=== PATIENT | male | born 1985 | race Caucasian/White ===

== ENCOUNTER 2018-10-21 21:17 | Inpatient (IN) | payer MEDICAID | END 2018-10-23 13:11 | disposition home or self-care (01) | LOC: ER 21:17 → ED HOLD 10-22 00:26 → SUR 3N 10-22 02:45 ==

== ENCOUNTER 2019-09-02 09:55 | Emergency (ER) | payer MEDICAID ==
[~2019-09-02] VITALS: Ht 170.2 cm; Wt 77.8 kg
[~2019-09-02 09:55] MED LIST: BENZ1TAB7 PO; CHOL200012 PO; CLOZ100T35 PO; DOXE10CA3; HALO10TA13 PO; HALO5TAB PO; IPRA4AER IH; PROP10TA10 PO; UMEC1DIS INH
[2019-09-02 10:01] VITALS: BP 111/77
[2019-09-02] MEDS ORDERED: dexamethasone 4mg tablet PO ONE (10:35)
[2019-09-02] MEDS ORDERED: metroNIDAZOLE 500mg tablet PO ONE (10:35)
[2019-09-02] MEDS ORDERED: ONDA4TAB6 PO (10:37)
[2019-09-02] MEDS ORDERED: PRED20TA PO (10:37)
[2019-09-02] MEDS ORDERED: CLIN300C54 PO (10:37)
[2019-09-02] MEDS ORDERED: HYDR-3965 PO (10:37)
[2019-09-02] MEDS ORDERED: METR500T PO (10:37)
== END 2019-09-02 10:58 | disposition home or self-care (01) ==
LOC: ER 09:55
DX: K04.7 Periapical abscess without sinus (principal); K02.9 Dental caries, unspecified; J45.909 Unspecified asthma, uncomplicated; F20.9 Schizophrenia, unspecified; F12.90 Cannabis use, unspecified, uncomplicated; Z56.0 Unemployment, unspecified; Z88.0 Allergy status to penicillin; Z79.899 Other long term (current) drug therapy
CPT/HCPCS: 99283; J3490

== ENCOUNTER 2021-08-15 17:59 | Emergency (ER) | payer MEDICAID ==
[~2021-08-15] VITALS: Ht 170.2 cm; Wt 93.6 kg
[~2021-08-15 17:59] MED LIST changes: +CLIN300C54 PO; +ONDA4TAB6 PO
[2021-08-15] MEDS ORDERED: albuterol 2.5 MG/3 ML nebule NEB ONE (22:10)
[2021-08-15] MEDS ORDERED: ALBU8HFA PO (22:47)
[2021-08-15] MEDS ORDERED: dexamethasone 4mg tablet PO ONE ×2 (22:50)
[2021-08-15] MEDS ORDERED: DEXAMETHASONE 6 MG TABLET PO ONE (22:50)
[2021-08-16 00:16] LABS: MEAN CORPUSCULAR HGB CONC 35.6 g/dL (33.0-36.5); MEAN PLATELET VOLUME 7.9 FL (7.4-10.4)
[2021-08-16 00:18] LABS: BASOPHILS % (AUTO) 0.6 % (0-1); EOSINOPHILS # (AUTO) 0.1 X10'3 (0-0.9); HEMATOCRIT 41.2 % (42.0-52.0); HEMOGLOBIN 14.7 g/dl (14.0-17.9); LYMPHOCYTES # (AUTO) 0.9 X10'3 (1.1-4.8); LYMPHOCYTES % (AUTO) 13.9 % (21-51); MEAN CORPUSCULAR VOLUME 92.8 FL (78-98); MONOCYTES # (AUTO) 0.5 X10'3 (0-0.9); MONOCYTES % (AUTO) 7.2 % (2-12); NEUTROPHILS # (AUTO) 5.1 X10'3 (1.8-7.7); NEUTROPHILS % (AUTO) 76.3 % (42-75); PLATELET COUNT 170 X10'3 (140-440); RED BLOOD COUNT 4.44 X10'6 (4.70-6.10); RED CELL DISTRIBUTION WIDTH 12.3 % (11.5-14.5); WHITE BLOOD COUNT 6.7 X10'3 (4.5-11.0)
[2021-08-16 00:22] LABS: ALBUMIN 4.1 G/DL (3.4-5.0); ANION GAP 10 (8-16); BLOOD UREA NITROGEN 7 MG/DL (7-18); BUN/CREATININE RATIO 9.1 (5.4-32.0); CALCIUM 7.9 MG/DL (8.5-10.1); CHLORIDE 91 MMOL/L (99-107); CREATININE 0.77 MG/DL (0.60-1.10); GLUCOSE 91 MG/DL (70-104); SODIUM 127 MMOL/L (135-145); TOTAL CARBON DIOXIDE 25.9 MMOL/L (24-32); eGFR > 90 ML/MIN
[2021-08-16 00:23] LABS: POTASSIUM 3.8 MMOL/L (3.5-5.1)
[2021-08-16 00:31] VITALS: BP 136/103
== END 2021-08-16 01:49 | disposition home or self-care (01) ==
LOC: ER 17:59
DX: J45.901 Unspecified asthma with (acute) exacerbation (principal); E87.1 Hypo-osmolality and hyponatremia; F45.9 Somatoform disorder, unspecified; R06.02 Shortness of breath; R63.1 Polydipsia; F20.9 Schizophrenia, unspecified; F12.90 Cannabis use, unspecified, uncomplicated; Z56.0 Unemployment, unspecified; Z88.0 Allergy status to penicillin; Z79.2 Long term (current) use of antibiotics; Z79.899 Other long term (current) drug therapy
CPT/HCPCS: 36415; 71045; 80048; 85025; 93005; 94640; 94760; 99285; J8540

== ENCOUNTER 2023-04-11 22:15 | Emergency (ER) | payer MEDICAID ==
[~2023-04-11] VITALS: Ht 170.2 cm; Wt 84.1 kg
[~2023-04-11 22:15] MED LIST changes: -BENZ1TAB7 PO; +BENZ1TAB93 PO
[2023-04-11] MEDS ORDERED: ipratropium/albuterol 3ml nebule NEB ONE (22:40)
[2023-04-11] MEDS ORDERED: predniSONE 20 mg tablet PO ONE (22:45)
[2023-04-11] MEDS ORDERED: azithromycin 250mg tablet PO ONE (22:45)
[2023-04-11] MEDS ORDERED: CefTRIAXone 2gm/D5W 50ml BAG 50 ML IV ONE (23:15)
[2023-04-11 23:45] LABS: BASOPHILS % (AUTO) 0.2 % (0-1); EOSINOPHILS % (AUTO) 0 % (0-6); HEMATOCRIT 34.9 % (42.0-52.0); HEMOGLOBIN 11.7 g/dl (14.0-17.9); LYMPHOCYTES # (AUTO) 0.5 X10'3 (1.1-4.8); LYMPHOCYTES % (AUTO) 4.3 % (21-51); MEAN CORPUSCULAR HEMOGLOBIN 31.1 PG (27.0-31.0); MEAN CORPUSCULAR HGB CONC 33.5 g/dL (33.0-36.5); MEAN CORPUSCULAR VOLUME 92.8 FL (78-98); MONOCYTES # (AUTO) 1.1 X10'3 (0-0.9); MONOCYTES % (AUTO) 9.1 % (2-12); NEUTROPHILS # (AUTO) 10.6 X10'3 (1.8-7.7); NEUTROPHILS % (AUTO) 86.4 % (42-75); PLATELET COUNT 256 X10'3 (140-440); RED BLOOD COUNT 3.75 X10'6 (4.70-6.10); RED CELL DISTRIBUTION WIDTH 13.2 % (11.5-14.5); WHITE BLOOD COUNT 12.3 X10'3 (4.5-11.0)
[2023-04-11] MEDS ORDERED: ketorolac trometh. 30mg/ml inj. IV ONE (23:50)
[2023-04-12 00:01] LABS: ALANINE AMINOTRANSFERASE 151 U/L (12-78); ALBUMIN/GLOBULIN RATIO 0.8 (1.1-1.5); ALKALINE PHOSPHATASE 108 IU/L (46-116); ANION GAP 11 (8-16); ASPARTATE AMINO TRANSFERASE 116 U/L (10-37); BILIRUBIN,TOTAL 0.5 MG/DL (0.1-1.0); BLOOD UREA NITROGEN 8 MG/DL (7-18); BUN/CREATININE RATIO 8.1 (10.0-20.0); CALCIUM 8.5 MG/DL (8.5-10.1); CHLORIDE 98 MMOL/L (99-107); CREATININE 0.99 MG/DL (0.60-1.10); GLUCOSE 118 MG/DL (70-104); POTASSIUM 3.4 MMOL/L (3.5-5.1); SODIUM 135 MMOL/L (135-145); TOTAL CARBON DIOXIDE 25.8 MMOL/L (24-32); TOTAL PROTEIN 6.8 G/DL (6.4-8.2); eGFR 84 ML/MIN
[2023-04-12] MEDS ORDERED: PRED20TA PO (00:55)
[2023-04-12] MEDS ORDERED: DOXY100C43 PO (00:55)
[2023-04-12 01:09] VITALS: BP 110/67
== END 2023-04-12 01:10 | disposition home or self-care (01) ==
LOC: ER 22:16
DX: J20.9 Acute bronchitis, unspecified (principal); J45.909 Unspecified asthma, uncomplicated; F12.90 Cannabis use, unspecified, uncomplicated; Z88.0 Allergy status to penicillin; Z56.0 Unemployment, unspecified
CPT/HCPCS: 36415; 71045; 80053; 84145; 85025; 94640; 96374; 96375; 99284; J0696; J1885; J7512; 94760; A4615

== ENCOUNTER → 2023-05-01 | Emergency (ER) | payer MEDICAID ==
[~2023-05-01] VITALS: Ht 170.2 cm; Wt 87.2 kg
[~2023-05-01] MED LIST changes: +DOXY100C43 PO; +POTASSIUM BICARB 20meq eff tab 20 MEQ TABLET.EFF PO ONE; +PRED20TA PO; +ringers solution, lactated 1000ml IV soln IV ONE
[2023-05-01 15:55] VITALS: TEMP 97.7
[2023-05-01 16:35] LABS: BASOPHILS % (AUTO) 0.2 % (0-1); EOSINOPHILS % (AUTO) 0.4 % (0-6); HEMATOCRIT 39.9 % (42.0-52.0); HEMOGLOBIN 13.8 g/dl (14.0-17.9); LYMPHOCYTES # (AUTO) 1.7 X10'3 (1.1-4.8); LYMPHOCYTES % (AUTO) 24.1 % (21-51); MEAN CORPUSCULAR HEMOGLOBIN 31.2 PG (27.0-31.0); MEAN CORPUSCULAR HGB CONC 34.6 g/dL (33.0-36.5); MEAN CORPUSCULAR VOLUME 90.2 FL (78-98); MEAN PLATELET VOLUME 8.6 FL (7.4-10.4); MONOCYTES # (AUTO) 0.6 X10'3 (0-0.9); NEUTROPHILS # (AUTO) 4.6 X10'3 (1.8-7.7); NEUTROPHILS % (AUTO) 67.3 % (42-75); PLATELET COUNT 164 X10'3 (140-440); RED BLOOD COUNT 4.43 X10'6 (4.70-6.10); RED CELL DISTRIBUTION WIDTH 14.6 % (11.5-14.5); WHITE BLOOD COUNT 6.9 X10'3 (4.5-11.0)
[2023-05-01 16:49] LABS: ALANINE AMINOTRANSFERASE 34 U/L (12-78); ALBUMIN 3.6 G/DL (3.4-5.0); ALBUMIN/GLOBULIN RATIO 1.3 (1.1-1.5); ALKALINE PHOSPHATASE 83 IU/L (46-116); ANION GAP 11 (8-16); ASPARTATE AMINO TRANSFERASE 19 U/L (10-37); BILIRUBIN,TOTAL 0.6 MG/DL (0.1-1.0); BLOOD UREA NITROGEN 9 MG/DL (7-18); BUN/CREATININE RATIO 12.2 (10.0-20.0); CALCIUM 8.8 MG/DL (8.5-10.1); CHLORIDE 94 MMOL/L (99-107); CREATININE 0.74 MG/DL (0.60-1.10); GLUCOSE 118 MG/DL (70-104); POTASSIUM 3.2 MMOL/L (3.5-5.1); SODIUM 129 MMOL/L (135-145); TOTAL CARBON DIOXIDE 23.7 MMOL/L (24-32); TOTAL PROTEIN 6.3 G/DL (6.4-8.2); eGFR > 90 ML/MIN
[2023-05-01 18:45] VITALS: BP 101/68; PULSE 76; RESP 16; O2SAT 96
== END | disposition home or self-care (01) ==
LOC: ER 21:23
DX: R04.2 Hemoptysis (principal); R05.9 Cough, unspecified; E87.1 Hypo-osmolality and hyponatremia; E87.6 Hypokalemia; F17.200 Nicotine dependence, unspecified, uncomplicated; J44.9 Chronic obstructive pulmonary disease, unspecified; F12.90 Cannabis use, unspecified, uncomplicated; Z56.0 Unemployment, unspecified; Z88.0 Allergy status to penicillin; Z79.2 Long term (current) use of antibiotics; Z79.899 Other long term (current) drug therapy
CPT/HCPCS: 36415; 71045; 80053; 83880; 84484; 85025; 99284; J7120

== ENCOUNTER 2023-07-15 13:51 | Inpatient (IN) | payer MEDICAID ==
[~2023-07-15] VITALS: Ht 170.2 cm; Wt 88.9 kg
[~2023-07-15 13:51] MED LIST changes: -DOXY100C43 PO; -POTASSIUM BICARB 20meq eff tab 20 MEQ TABLET.EFF PO ONE; -PRED20TA PO; -ringers solution, lactated 1000ml IV soln IV ONE
[2023-07-15 14:15] LABS: BASOPHILS % (AUTO) 0.1 % (0-1); EOSINOPHILS % (AUTO) 0.2 % (0-6); LYMPHOCYTES # (AUTO) 0.9 X10'3 (1.1-4.8); LYMPHOCYTES % (AUTO) 13.8 % (21-51); MEAN CORPUSCULAR HEMOGLOBIN 31.3 PG (27.0-31.0); MEAN CORPUSCULAR HGB CONC 33.4 g/dL (33.0-36.5); MEAN CORPUSCULAR VOLUME 93.6 FL (78-98); MEAN PLATELET VOLUME 8.7 FL (7.4-10.4); MONOCYTES # (AUTO) 0.5 X10'3 (0-0.9); MONOCYTES % (AUTO) 7.2 % (2-12); NEUTROPHILS # (AUTO) 5.4 X10'3 (1.8-7.7); NEUTROPHILS % (AUTO) 78.7 % (42-75); PLATELET COUNT 162 X10'3 (140-440); RED CELL DISTRIBUTION WIDTH 14.1 % (11.5-14.5); WHITE BLOOD COUNT 6.9 X10'3 (4.5-11.0)
[2023-07-15 14:33] LABS: ALANINE AMINOTRANSFERASE 37 U/L (12-78); ALBUMIN 4.2 G/DL (3.4-5.0); ALBUMIN/GLOBULIN RATIO 1.4 (1.1-1.5); ALKALINE PHOSPHATASE 81 IU/L (46-116); ANION GAP 7 (8-16); ASPARTATE AMINO TRANSFERASE 23 U/L (10-37); BILIRUBIN,TOTAL 0.7 MG/DL (0.1-1.0); BLOOD UREA NITROGEN 9 MG/DL (7-18); BUN/CREATININE RATIO 9.6 (10.0-20.0); CHLORIDE 100 MMOL/L (99-107); CREATININE 0.94 MG/DL (0.60-1.10); GLUCOSE 94 MG/DL (70-104); POTASSIUM 3.9 MMOL/L (3.5-5.1); SODIUM 135 MMOL/L (135-145); TOTAL PROTEIN 7.2 G/DL (6.4-8.2); eCRCL 99 ML/MIN; eGFR 89 ML/MIN
--- NOTE | 2023-07-15 14:34 | NUR ---
Patient arrived to overflow-bed 23 from [facility] at this time. Calm and cooperative. Received report from EMS. Home meds handed over to this nurse. Patient was evicted from board and care and unable to form plan of care. Placed on 5150 for gravely disabled. LPS due to severe s/sx of Schizophrenia. Alert to baseline.
[2023-07-15 14:43] LABS: ETHANOL < 10 MG/DL (<10); THYROID STIMULATING HORMONE 1.49 ulU/ml (0.34-4.50)
[2023-07-15 15:06] LABS: BILIRUBIN,URINE NEGATIVE (Neg); CLARITY,URINE CLEAR (Clear); COLOR,URINE STRAW (Yellow); GLUCOSE, URINE NEGATIVE (Neg); KETONES,URINE NEGATIVE (Neg); LEUKOCYTE ESTERASE ,URINE NEGATIVE (Neg); NITRITES, URINE NEGATIVE (Neg); OCCULT BLOOD,URINE NEGATIVE (Neg); PH,URINE 7.5 (4.8-8.0); PROTEIN,URINE NEGATIVE (Neg); UROBILINOGEN,URINE 0.2 E.U/dL (0.2-1.0)
[2023-07-15 15:11] LABS: UA COLLECTION TYPE NON-SPECIFIED
[2023-07-15 15:25] LABS: URINE AMPHETAMINE SCREEN NEGATIVE (Neg); URINE BARBITUATE SCREEN NEGATIVE (Neg); URINE BENZODIAZEPINES SCREEN NEGATIVE (Neg); URINE CANNABINOID SCREEN NEGATIVE (Neg); URINE COCAINE SCREEN NEGATIVE (Neg); URINE METHADONE SCREEN NEGATIVE (Neg); URINE OPIATE SCREEN NEGATIVE (Neg); URINE PHENCYCLIDINE SCREEN NEGATIVE (Neg)
[2023-07-15] MEDS ORDERED: TIOT4MIS3 INH (16:12)
[2023-07-15] MEDS ORDERED: CHLO473M2 PO (16:12)
[2023-07-15] MEDS ORDERED: ONDA-103 PO (16:12)
[2023-07-15] MEDS ORDERED: POLY510P31 PO (16:12)
[2023-07-15] MEDS ORDERED: DOCU-22 PO (16:12)
[2023-07-15] MEDS ORDERED: PROP60TA19 PO (16:12)
[2023-07-15] MEDS ORDERED: Ibuprofen PO (16:12)
[2023-07-15] MEDS ORDERED: LORA-269 PO (16:12)
[2023-07-15] MEDS ORDERED: ALBU6.7H14 INH (16:12)
[2023-07-15] MEDS ORDERED: CLOZ25TA12 PO (16:12)
[2023-07-15] MEDS ORDERED: CLOZ50TA9 PO (16:12)
[2023-07-15] MEDS ORDERED: CLOZ100T13 PO (16:12)
[2023-07-15] MEDS ORDERED: BENZ2TAB65 PO (16:12)
[2023-07-15] MEDS ORDERED: PANT40TA54 PO (16:12)
[2023-07-15] MEDS ORDERED: CALC500T11 PO (16:12)
[2023-07-15] MEDS ORDERED: ACET-1025 PO (16:12)
--- NOTE | 2023-07-15 16:45 | NUR ---
Patient resting in bed. Makes frequent requests for coffee and soda. Made him aware of what he can have and how much. Patient was calm and compliant. Just completed med req. Dropped home medications off in pharmacy. Pending evaluation.
[2023-07-15] MEDS ORDERED: ibuprofen 200mg tablet PO PRN (18:05)
[2023-07-15] MEDS ORDERED: acetaminophen 325mg tablet PO PRN (18:05)
--- NOTE | 2023-07-15 18:30 | NUR ---
Received pt from day shift RN. Pt is up watching TV. Pt is calm and cooperative with care. Pt requsting breathing treatment, RT was paged.
--- NOTE | 2023-07-15 19:27 | NUR ---
RT was repaged.
[2023-07-15] MEDS: propranolol 40mg tablet PO SCH (19:57)
[2023-07-15] MEDS: docusate sod 100mg capsule PO SCH (19:57)
[2023-07-15] MEDS: benztropine 1mg tablet PO SCH (19:58)
[2023-07-15] MEDS: clozapine 100mg tablet PO SCH (19:58)
[2023-07-15] MEDS: haloperidol 5mg tablet PO SCH (19:58)
[2023-07-15] MEDS: clozapine 25mg tablet PO SCH (19:58)
[2023-07-15 20:12] VITALS: PULSE 86; RESP 16; O2SAT 94
--- NOTE | 2023-07-15 20:15 | NUR ---
RT here and breathing treatment given with good results. Pt is guarded and deniesn SI/HI/AVH. Pt is medication compliant tonight. Pt in NAD. Monitor for safety.
[2023-07-15 20:19] VITALS: PULSE 87; RESP 16
[2023-07-15] MEDS ORDERED: albuterol 2.5 MG/3 ML nebule NEB SCH (21:00)
--- NOTE | 2023-07-15 22:29 | NUR ---
Pt sleeping in supine position. NAD observed. RR even and unlabored. Monitor for safety.
--- NOTE | 2023-07-16 00:15 | NUR ---
Pt sleeping on left side. NAD observed. RR even and unlabored. Monitor for safety.
--- NOTE | 2023-07-16 02:00 | NUR ---
Pt asleep, RR even and unlabored. Pt in no acute distress, monitor for safety.
--- NOTE | 2023-07-16 03:56 | NUR ---
Pt asleep with even respirations, in NAD, monitor for safety.
--- NOTE | 2023-07-16 05:46 | NUR ---
Pt awake and having VS taken. Water refilled. Pt is in no distress. Monitor for safety.
--- NOTE | 2023-07-16 06:56 | NUR ---
Pt standing by bed with arms crossed. Pt asked for coffee, tech gave. Pt asking how people get hired here and if one has to go to school to apply. Pt calm and appears happy with coffee. No s/s of distress.
[2023-07-16] MEDS: cholecalciferol (vitamin D3) 1,000 unit (25mcg) tablet PO SCH (07:24)
[2023-07-16] MEDS: polyethylene glycol 3350 17gm powd pack PO SCH (07:24)
[2023-07-16] MEDS: clozapine 100mg tablet PO SCH ×4 (07:24→20:08)
[2023-07-16] MEDS: benztropine 1mg tablet PO SCH ×2 (07:24→20:07)
[2023-07-16] MEDS: LORazepam 1 MG tablet PO SCH (07:24)
[2023-07-16] MEDS: docusate sod 100mg capsule PO SCH ×2 (07:25→20:07)
[2023-07-16] MEDS: pantoprazole 40mg Tablet.DR PO SCH (07:25)
[2023-07-16] MEDS: clozapine 25mg tablet PO SCH ×4 (07:25→20:08)
[2023-07-16] MEDS: haloperidol 5mg tablet PO SCH ×3 (07:25→20:07)
[2023-07-16] MEDS: propranolol 40mg tablet PO SCH ×3 (07:53→20:06)
--- NOTE | 2023-07-16 09:04 | NUR ---
Pt pacing around bed with arms crossed staring at staff. No s/s of distress.
[2023-07-16 09:32] VITALS: PULSE 77; RESP 16; O2SAT 96
[2023-07-16] MEDS: albuterol 2.5 MG/3 ML nebule NEB SCH ×3 (09:32→20:25)
[2023-07-16 09:40] VITALS: PULSE 74; RESP 16
[2023-07-16] MEDS: Tiotropium Br/Olodaterol HCl (Stiolto Respimat Inhal Spray) IH SCH (09:49)
--- NOTE | 2023-07-16 10:21 | NUR ---
Niurka Smith called for nurse to nurse. Given to IRAM Kelly.
--- NOTE | 2023-07-16 11:01 | NUR ---
Pt lying in bed supine and awake. Pt calm, no s/s of distress. Respirations even and unlabored.
--- NOTE | 2023-07-16 12:20 | NUR ---
Pt eating lunch in bed. Took afternoon medications cooperatively. Pt calm and cooperative. No s/s of distress. Coffee provided, pt pleased.
--- NOTE | 2023-07-16 13:06 | NUR ---
Pt observed swinging his fist into the air stating that there is an entity in here. putting in order for Ativan.
[2023-07-16] MEDS ORDERED: LORazepam 1 MG tablet PO ONE (13:20)
--- NOTE | 2023-07-16 14:30 | NUR ---
Pt is sitting in his bed. Pt is calm and looking through magazines. No s/s of distress.
[2023-07-16 14:45] VITALS: PULSE 79; RESP 18; O2SAT 96
[2023-07-16 14:51] VITALS: PULSE 76; RESP 18
--- NOTE | 2023-07-16 16:30 | NUR ---
Pt awake standing near nursing station asking for coffee. No s/s of distress. Pt calm with staff.
--- NOTE | 2023-07-16 16:51 | NUR ---
Note kaileysuhas in EDM - 07/16/23 at 1717 by JONATHON Pt escorted out of the ER by security. Pt has all belongings & valuables. Pt provided with information about [facility] to find prison. Pt refused to sign paperwork and became very agitated when it was time to leave. Pt made several statements pertaining to how terrible staff is. Pt began yelling and making delusional statements about staff making a super satan out of his blood.
--- NOTE | 2023-07-16 16:52 | NUR ---
Above note for a different patient.
--- NOTE | 2023-07-16 18:30 | NUR ---
Pt lying in bed supine and awake. No s/s of distress.
[2023-07-16 20:26] VITALS: PULSE 71; RESP 18; O2SAT 95
[2023-07-16 20:33] VITALS: PULSE 72; RESP 18
--- NOTE | 2023-07-16 20:49 | NUR ---
Pt asleep in bed lying on right side. Respirations even and unlabored. No s/s of distress.
--- NOTE | 2023-07-16 22:28 | NUR ---
Patient asleep in bed lying on right side. Respirations even and unlabored. No s/s of distress.
--- NOTE | 2023-07-17 06:32 | NUR ---
Patient awake and walking around the unit asking for coffee. Patient appears slightly agitated. Continue to monitor.
--- NOTE | 2023-07-17 08:09 | NUR ---
Patient eating breakfast. No distress observed. Continue to monitor.
[2023-07-17] MEDS: polyethylene glycol 3350 17gm powd pack PO SCH (08:11)
[2023-07-17] MEDS: pantoprazole 40mg Tablet.DR PO SCH (08:13)
[2023-07-17] MEDS: LORazepam 1 MG tablet PO SCH (08:13)
[2023-07-17] MEDS: clozapine 25mg tablet PO SCH ×4 (08:13→21:09)
[2023-07-17] MEDS: benztropine 1mg tablet PO SCH ×2 (08:14→21:06)
[2023-07-17] MEDS: haloperidol 5mg tablet PO SCH ×3 (08:14→21:06)
[2023-07-17] MEDS: docusate sod 100mg capsule PO SCH ×2 (08:14→21:06)
[2023-07-17] MEDS: propranolol 40mg tablet PO SCH ×3 (08:14→21:06)
[2023-07-17] MEDS: clozapine 100mg tablet PO SCH ×4 (08:14→21:09)
[2023-07-17] MEDS: cholecalciferol (vitamin D3) 1,000 unit (25mcg) tablet PO SCH (08:14)
[2023-07-17 08:30] VITALS: PULSE 89; RESP 17; O2SAT 95
[2023-07-17] MEDS: Tiotropium Br/Olodaterol HCl (Stiolto Respimat Inhal Spray) IH SCH (08:30)
[2023-07-17] MEDS: albuterol 2.5 MG/3 ML nebule NEB SCH ×3 (08:30→21:00)
[2023-07-17 08:38] VITALS: PULSE 85; RESP 17
--- NOTE | 2023-07-17 09:55 | NUR ---
Patient often coming to nurse's station and asking for coffee. Continue to monitor.
--- NOTE | 2023-07-17 12:05 | NUR ---
Patient eating lunch. No distress observed. Continue to monitor.
--- NOTE | 2023-07-17 12:51 | NUR ---
Patient watching T.V. No distress observed. Continue to monitor.
--- NOTE | 2023-07-17 14:09 | NUR ---
Patient watching T.V. No distress observed. Continue to monitor.
--- NOTE | 2023-07-17 16:11 | NUR ---
Patient assisting another patient with the T.V. No distress observed. Continue to monitor.
--- NOTE | 2023-07-17 18:07 | NUR ---
Patient eating dinner. No distress observed. Continue to monitor.
--- NOTE | 2023-07-17 20:03 | NUR ---
Patient sleeping supine. Nonlabored respirations. Continue to monitor.
--- NOTE | 2023-07-17 22:33 | NUR ---
Patient continues to sleep. No distress observed. Continue to monitor.
--- NOTE | 2023-07-18 01:14 | NUR ---
Patient continues to sleep. No distress observed. Continue to monitor.
--- NOTE | 2023-07-18 03:16 | NUR ---
Patient got up a little while ago ane then was watching R.V. No distress observed. Contine to monitor.
--- NOTE | 2023-07-18 06:30 | NUR ---
Received pt. awake requesting coffee.
[2023-07-18] MEDS: clozapine 100mg tablet PO SCH ×4 (07:30→21:53)
[2023-07-18] MEDS: LORazepam 1 MG tablet PO SCH ×2 (07:30→17:34)
[2023-07-18] MEDS: pantoprazole 40mg Tablet.DR PO SCH (07:31)
[2023-07-18] MEDS: docusate sod 100mg capsule PO SCH ×2 (07:31→21:51)
[2023-07-18] MEDS: benztropine 1mg tablet PO SCH ×2 (07:31→21:54)
[2023-07-18] MEDS: polyethylene glycol 3350 17gm powd pack PO SCH (07:31)
[2023-07-18] MEDS: cholecalciferol (vitamin D3) 1,000 unit (25mcg) tablet PO SCH (07:31)
[2023-07-18] MEDS: clozapine 25mg tablet PO SCH ×4 (07:31→21:53)
[2023-07-18] MEDS: haloperidol 5mg tablet PO SCH ×3 (07:31→21:52)
[2023-07-18] MEDS: propranolol 40mg tablet PO SCH ×3 (07:31→21:52)
--- NOTE | 2023-07-18 08:19 | NUR ---
Pt. refused breakfast and instead gave it to another peer, he is observed to be up and down out of bed and somewhat restless. Will continue to monitor.
--- NOTE | 2023-07-18 09:10 | NUR ---
Pt's mother called and is pt. is talking to her at this time.
--- NOTE | 2023-07-18 09:11 | NUR ---
Disregard last note: charted on wrong patient
[2023-07-18] MEDS: albuterol 2.5 MG/3 ML nebule NEB SCH ×3 (09:14→21:00)
[2023-07-18 09:16] VITALS: PULSE 83; RESP 14; O2SAT 97
[2023-07-18] MEDS: Tiotropium Br/Olodaterol HCl (Stiolto Respimat Inhal Spray) IH SCH (09:19)
--- NOTE | 2023-07-18 09:19 | NUR ---
1:1 was completed with pt. at beside, he is A&O X3, not to the reason he is here. Pt. answers direct questions only with a minimal response. He denies any S/I or A/V/MOSLEY. When questioned regarding delusions, pt. stated in what appeared to be a possible paranoid manner, "Everyone wants to hurt me, I have nightmares." He does not elaborate on this upon further questioning, however pt. denies having any nightmares last night.
[2023-07-18 09:25] VITALS: PULSE 82; RESP 18
--- NOTE | 2023-07-18 10:18 | NUR ---
Pt. is standing at the nurse's station at this time, interacating appropriately with staff.
--- NOTE | 2023-07-18 12:01 | NUR ---
Pt. has been accepted at [facility] and will be transferred upstairs. Addendum: 07/18/23 at 1203 by HILARIO Pt. is aware of this and reports understanding.
--- NOTE | 2023-07-18 12:10 | NUR ---
Pt. was transferred upstairs to [place] in a wheelchair by RN and accompanied by security. His belongings were sent with him along with his lunch tray. Report was given to IRAM Loera.
[2023-07-18] MEDS ORDERED: loperamide 2mg capsule PO PRN (12:30)
[2023-07-18] MEDS ORDERED: acetaminophen 325mg tablet PO PRN ×2 (12:30)
[2023-07-18] MEDS ORDERED: mag hydrox/Alum hydrox/simeth 30ml oral suspension PO PRN (12:30)
[2023-07-18] MEDS ORDERED: nicotine 21mg patch - 24 hr TD SCH (12:30)
--- NOTE | 2023-07-18 12:37 | NUR ---
Admit note: Pt admitted to [facility] today on 5150 for gravely disabled from our ER at 1210. Pt was evicted from his board and care. Pt has severe thought disorder that impacts his ability to make a plan to meet his needs. Pt has history of cerebral palsy, asthma, COPD , schizophrenia.
[2023-07-18 12:53] VITALS: BP 127/87; PULSE 81; RESP 18; TEMP 97.7; O2SAT 98
[2023-07-18 15:55] VITALS: RESP 16
[2023-07-18 19:30] VITALS: BP 116/73; PULSE 79; RESP 18; TEMP 97.5; O2SAT 95
[2023-07-18] MEDS: calcium carbonate 500mg tablet PO SCH (21:53)
[2023-07-18] MEDS: chlorhexidine gluconate 15ml Cup****oral rinse MM SCH (21:54)
[2023-07-19] VITALS (7 sets, daily range): BP systolic 90–116; BP diastolic 52–84; PULSE 76–90; RESP 12–18; TEMP 97.4; O2SAT 96–98
--- NOTE | 2023-07-19 05:23 | NUR ---
Nursing Progress Note: Problem: Pt admitted to [facility] today on 5150 for gravely disabled from our ER at 1210. Pt was evicted from his board and care. Pt has severe thought disorder that impacts his ability to make a plan to meet his needs. Pt has history of cerebral palsy, asthma, COPD , schizophrenia. Interventions: Maintained a safe and structured environment, ensured contract for safety, administered meds as prescribed, provided clear and simple instructions, and maintained Q 15min safety checks. Response: Pt sleeping in bed at shift change. On assessment pt was quiet and did not speak except to answer questions. He denies AVH/SI/HI. Pt was difficult to wake for med pass but was compliant with all medications and slept through the whole shift without any complaints. Plan: Cont. to require a safe and structured environment for further stabilization.
[2023-07-19] MEDS: LORazepam 1 MG tablet PO SCH ×2 (07:47→16:30)
[2023-07-19] MEDS: pantoprazole 40mg Tablet.DR PO SCH (07:48)
[2023-07-19] MEDS: clozapine 100mg tablet PO SCH ×4 (07:48→20:22)
[2023-07-19] MEDS: haloperidol 5mg tablet PO SCH ×3 (07:48→20:22)
[2023-07-19] MEDS: benztropine 1mg tablet PO SCH ×2 (07:48→20:22)
[2023-07-19] MEDS: docusate sod 100mg capsule PO SCH ×2 (07:48→20:22)
[2023-07-19] MEDS: clozapine 25mg tablet PO SCH ×4 (07:48→20:22)
[2023-07-19] MEDS: polyethylene glycol 3350 17gm powd pack PO SCH (07:48)
[2023-07-19] MEDS: cholecalciferol (vitamin D3) 1,000 unit (25mcg) tablet PO SCH (07:48)
[2023-07-19] MEDS: calcium carbonate 500mg tablet PO SCH ×3 (07:48→20:22)
[2023-07-19] MEDS: propranolol 40mg tablet PO SCH ×3 (07:49→20:20)
[2023-07-19] MEDS: chlorhexidine gluconate 15ml Cup****oral rinse MM SCH ×2 (08:05→20:23)
[2023-07-19 08:29] LABS: CHOL/HDL RATIO 3.4 (0.00-4.99); CHOLESTEROL 158 MG/DL (0-200); HDL CHOLESTEROL 47 MG/DL (35-60); LDL CHOLESTEROL 92 MG/DL (50-100); TRIGLYCERIDES 129 MG/DL (20-135)
[2023-07-19] MEDS: albuterol 2.5 MG/3 ML nebule NEB SCH ×3 (08:30→20:16)
[2023-07-19] MEDS: Tiotropium Br/Olodaterol HCl (Stiolto Respimat Inhal Spray) IH SCH (08:30)
[2023-07-19 08:35] LABS: HEMOGLOBIN A1C 5.4 % (4.5-6.2)
--- NOTE | 2023-07-19 10:16 | NUR ---
pt refused medication was walking floor no SOB
--- NOTE | 2023-07-19 10:18 | NUR ---
pt refused tx states he does not need one at this time, walking floor no sob noted
[2023-07-19] MEDS: NICOTINE POLACRILEX 2 MG LOZENGE BC PRN (15:44)
--- NOTE | 2023-07-19 16:22 | NUR ---
MRSA positive: Lab called and pt is MRSA positive
--- NOTE | 2023-07-19 16:45 | NUR ---
Nursing Progress Note: Problem : Pt admitted to [place] [facility] today on 5150 for gravely disabled from our ER. Pt was evicted from his board and care. Pt has severe thought disorder that impacts his ability to make a plan to meet his needs. Pt has history of cerebral palsy, asthma, COPD , schizophrenia. Interventions : Maintained a safe and supportive, provided a safe and supportive environment, ensured contract for safety, provided clear and simple instructions, and maintained Q 15min safety checks. Response : Received pt. sleeping in bed at the beginning of the shift, he awoke and was observed to be pacing the hallway wearing headphones in a somewhat restless manner. Pt. attended breakfast in the Group Room with encouragement from staff, he was noted to be interacting minimally, however appropriately with others. 1:1 was completed at beside, pt. presents as cooperative, guarded, and withdrawn with a flat affect. He responds minimally to direct questions with latency of response and will at times just stare intently. Pt. denies any S/I, H/I, or A/V/MOSLEY. He does endorse some anxiety and depression, but will not elaborate on this upon further questioning. Pt. then makes what appears to be a disorganized and possibly delusional statement, he whispers to this typewriter operator automatic, "They're trying to get it over on me." Upon further questioning, pt. is again unable to elaborate on what he means by this. This typewriter operator automatic provided education to pt. regarding his safety on the unit, and he reported understanding. Pt. napped intermittently during the shift, he appears to perseverate on a desire to obtain coffee requiring clear boundaries regarding this with effectiveness. Plan : Pt. requires interruption of current crisis, medication adjustments, and a safe and supportive environment.
[2023-07-20] VITALS (7 sets, daily range): BP systolic 112–138; BP diastolic 64–89; PULSE 81–110; RESP 14–20; TEMP 98.1–98.4; O2SAT 95–98
--- NOTE | 2023-07-20 06:02 | NUR ---
Nursing Progress Note: Problem: Pt admitted to [facility] today on 5150 for gravely disabled from our ER at 1210. Pt was evicted from his board and care. Pt has severe thought disorder that impacts his ability to make a plan to meet his needs. Pt has history of cerebral palsy, asthma, COPD , schizophrenia. Interventions: Maintained a safe and structured environment, ensured contract for safety, administered meds as prescribed, provided clear and simple instructions, and maintained Q 15min safety checks. Response: Pt sleeping in bed at shift change. Pt was difficult to wake for assessment saying what do you want when he woke. Pt was guarded and quiet during assessment. He denies AVH/SI/HI. Pt was compliant with all medications and slept through the whole shift without any complaints. Pt woke around 0500 and paced the halls with a peer while both were wearing headphones. Plan: Cont. to require a safe and structured environment for further stabilization.
[2023-07-20] MEDS: LORazepam 1 MG tablet PO SCH ×2 (07:32→16:34)
[2023-07-20] MEDS: clozapine 25mg tablet PO SCH ×4 (07:32→21:14)
[2023-07-20] MEDS: chlorhexidine gluconate 15ml Cup****oral rinse MM SCH ×2 (07:32→21:15)
[2023-07-20] MEDS: clozapine 100mg tablet PO SCH ×4 (07:32→21:14)
[2023-07-20] MEDS: polyethylene glycol 3350 17gm powd pack PO SCH (07:32)
[2023-07-20] MEDS: cholecalciferol (vitamin D3) 1,000 unit (25mcg) tablet PO SCH (07:33)
[2023-07-20] MEDS: benztropine 1mg tablet PO SCH ×2 (07:33→21:15)
[2023-07-20] MEDS: docusate sod 100mg capsule PO SCH ×2 (07:33→21:14)
[2023-07-20] MEDS: calcium carbonate 500mg tablet PO SCH ×3 (07:33→21:14)
[2023-07-20] MEDS: haloperidol 5mg tablet PO SCH ×3 (07:33→21:14)
[2023-07-20] MEDS: propranolol 40mg tablet PO SCH ×3 (07:33→21:15)
[2023-07-20] MEDS: pantoprazole 40mg Tablet.DR PO SCH (07:33)
[2023-07-20] MEDS: Tiotropium Br/Olodaterol HCl (Stiolto Respimat Inhal Spray) IH SCH (08:11)
[2023-07-20] MEDS: albuterol 2.5 MG/3 ML nebule NEB SCH (08:20)
--- NOTE | 2023-07-20 16:20 | NUR ---
Nursing Progress Note: Problem : Pt admitted to [facility] today on 5150 for gravely disabled from our ER. Pt was evicted from his board and care. Pt has severe thought disorder that impacts his ability to make a plan to meet his needs. Pt has history of cerebral palsy, asthma, COPD , schizophrenia. Interventions : Maintained a safe and supportive, provided a safe and supportive environment, ensured contract for safety, provided clear and simple instructions, attempted to orient to reality, provided education on handwashing r/t positive MRSA nasal swab, and maintained Q 15min safety checks. Response : Received pt. pacing the hallway wearing headphones in a somewhat restless manner at the beginning of the shift. Pt. attended breakfast in the Group Room, and afterwards retreated back to bed where he was observed to be napping intermittently. Later, at approximately 1230, pt. was noted to be laying in bed restlessly moving his legs. He requested Ativan, but was informed by this repairer typewriter that his next scheduled dose will be around dinner time. When questioned regarding the cause of his anxiety, pt. was unable to verbalized this. He was provided with scheduled propranolol and headphones to listen to relaxing music with effectiveness. Pt. refused lunch and proceeded to nap, however he did attend afternoon snack and reported feeling better. Pt. continues to present as guarded and withdrawn with a flat affect. He again responds minimally to direct questions with latency of response and will at times just stare intently. Pt. does not appear to be responding to internal stimuli and no delusional statements were made. Pt. remained up during the afternoon pacing at intervals wearing headphones, he remains withdrawn from others. Plan : Pt. requires interruption of current crisis, medication adjustments, and a safe and supportive environment.
[2023-07-20] MEDS: NICOTINE POLACRILEX 2 MG LOZENGE BC PRN (16:34)
[2023-07-21] VITALS (7 sets, daily range): BP systolic 94–112; BP diastolic 62–80; PULSE 78–89; RESP 14–20; TEMP 97–97.1; O2SAT 94–99
--- NOTE | 2023-07-21 05:46 | NUR ---
Nursing Progress Note: Problem : Pt admitted to [facility] today on 5150 for gravely disabled from our ER. Pt was evicted from his board and care. Pt has severe thought disorder that impacts his ability to make a plan to meet his needs. Pt has history of cerebral palsy, asthma, COPD , schizophrenia. Interventions : Maintained a safe and supportive, provided a safe and supportive environment, ensured contract for safety, provided clear and simple instructions, attempted to orient to reality, provided education on handwashing r/t positive MRSA nasal swab, and maintained Q 15min safety checks. Response : Received pt pacing hallway, and intermittently found laying/napping in bed at beginning of shift. Pt appears to be withdrawn, minimally responsive to direct questions, stares intently, has a flat affect, latent in response but was compliant and cooperative to care. No noted signs of agitation or restlessness noted on shift. Pt does not appear to be responding to internal stimuli nor present with delusional statements at this time. Pt took PM meds and went straight to bed thereafter. Pt remained in room/bed throughout remaining duration of shift. Plan : Pt. requires interruption of current crisis, medication adjustments, and a safe and supportive environment.
[2023-07-21] MEDS: NICOTINE POLACRILEX 2 MG LOZENGE BC PRN (06:09)
[2023-07-21] MEDS: benztropine 1mg tablet PO SCH ×2 (07:33→21:04)
[2023-07-21] MEDS: haloperidol 5mg tablet PO SCH ×3 (07:33→21:04)
[2023-07-21] MEDS: docusate sod 100mg capsule PO SCH ×2 (07:33→21:04)
[2023-07-21] MEDS: calcium carbonate 500mg tablet PO SCH ×3 (07:34→21:04)
[2023-07-21] MEDS: cholecalciferol (vitamin D3) 1,000 unit (25mcg) tablet PO SCH (07:34)
[2023-07-21] MEDS: polyethylene glycol 3350 17gm powd pack PO SCH (07:34)
[2023-07-21] MEDS: chlorhexidine gluconate 15ml Cup****oral rinse MM SCH ×2 (07:34→21:04)
[2023-07-21] MEDS: LORazepam 1 MG tablet PO SCH ×2 (07:34→16:56)
[2023-07-21] MEDS: clozapine 25mg tablet PO SCH ×4 (07:34→21:04)
[2023-07-21] MEDS: pantoprazole 40mg Tablet.DR PO SCH (07:34)
[2023-07-21] MEDS: clozapine 100mg tablet PO SCH ×4 (07:34→21:04)
[2023-07-21] MEDS: Tiotropium Br/Olodaterol HCl (Stiolto Respimat Inhal Spray) IH SCH (07:35)
[2023-07-21] MEDS: propranolol 40mg tablet PO SCH ×3 (07:59→21:00)
[2023-07-21] MEDS: albuterol 2.5 MG/3 ML nebule NEB PRN (16:09)
--- NOTE | 2023-07-21 16:18 | NUR ---
Nursing Progress Note: Problem : Pt admitted to [place] [facility] today on 5150 for gravely disabled from our ER. Pt was evicted from his board and care. Pt has severe thought disorder that impacts his ability to make a plan to meet his needs. Pt has history of cerebral palsy, asthma, COPD , schizophrenia. Interventions : Maintained a safe and supportive, provided a safe and supportive environment, ensured contract for safety, provided clear and simple instructions, attempted to orient to reality, provided education on handwashing r/t positive MRSA nasal swab, and maintained Q 15min safety checks. Response : Upon arrival to shift noted patient sleeping. Wanders halls. Calm and cooperative. Able to make needs known. Noted to be wearing an orange checkered beanie his friend made him and green hospital scrubs. Compliant with AM meds. PRN Tylenol given for shoulder pain with good effect. Received PRN Albuterol [place]. Walks halls and naps throughout the day. Noted to be guarded. No behaviors noted. Denies MH s/sx this shift. Dr. Guillermo rounded on him today. Will continue to monitor. Plan : Pt. requires interruption of current crisis, medication adjustments, and a safe and supportive environment.
--- NOTE | 2023-07-22 02:20 | NUR ---
Nursing Progress Note: Problem : Pt admitted to [facility] today on 5150 for gravely disabled from our ER. Pt was evicted from his board and care. Pt has severe thought disorder that impacts his ability to make a plan to meet his needs. Pt has history of cerebral palsy, asthma, COPD , schizophrenia. Interventions : Maintained a safe and supportive, provided a safe and supportive environment, ensured contract for safety, provided clear and simple instructions, attempted to orient to reality, provided education on handwashing r/t positive MRSA nasal swab, and maintained Q 15min safety checks. Response : Pt received in bed. He remained in room for remainder of the evening. He was cooperative during medication pass. Able to make needs known. Will continue to monitor. Plan : Pt. requires interruption of current crisis, medication adjustments, and a safe and supportive environment.
[2023-07-22] MEDS: propranolol 40mg tablet PO SCH ×3 (07:05→20:16)
[2023-07-22] MEDS: cholecalciferol (vitamin D3) 1,000 unit (25mcg) tablet PO SCH (07:06)
[2023-07-22] MEDS: haloperidol 5mg tablet PO SCH ×3 (07:06→20:16)
[2023-07-22] MEDS: pantoprazole 40mg Tablet.DR PO SCH (07:06)
[2023-07-22] MEDS: calcium carbonate 500mg tablet PO SCH ×3 (07:06→20:16)
[2023-07-22] MEDS: docusate sod 100mg capsule PO SCH ×2 (07:07→20:16)
[2023-07-22] MEDS: benztropine 1mg tablet PO SCH ×2 (07:07→20:16)
[2023-07-22] MEDS: LORazepam 1 MG tablet PO SCH ×2 (07:07→17:53)
[2023-07-22] MEDS: clozapine 25mg tablet PO SCH ×4 (07:08→20:16)
[2023-07-22] MEDS: clozapine 100mg tablet PO SCH ×4 (07:08→20:16)
[2023-07-22] MEDS: Tiotropium Br/Olodaterol HCl (Stiolto Respimat Inhal Spray) IH SCH (07:09)
[2023-07-22] MEDS: polyethylene glycol 3350 17gm powd pack PO SCH (07:10)
[2023-07-22 07:25] VITALS: PULSE 81; RESP 18; O2SAT 98
[2023-07-22 07:28] VITALS: PULSE 81; RESP 18
[2023-07-22 07:30] VITALS: BP 126/91; PULSE 77; RESP 16; TEMP 97.6; O2SAT 100
[2023-07-22] MEDS: chlorhexidine gluconate 15ml Cup****oral rinse MM SCH ×2 (08:54→20:16)
[2023-07-22] MEDS: NICOTINE POLACRILEX 2 MG LOZENGE BC PRN (10:53)
[2023-07-22] MEDS: propranolol 10mg tablet PO SCH ×2 (13:18→20:16)
--- NOTE | 2023-07-22 17:59 | NUR ---
Nursing Progress Note: Problem : Pt admitted to [place] [facility] today on 5150 for gravely disabled from our ER. Pt was evicted from his board and care. Pt has severe thought disorder that impacts his ability to make a plan to meet his needs. Pt has history of cerebral palsy, asthma, COPD , schizophrenia. Interventions : Maintained a safe and supportive, provided a safe and supportive environment, ensured contract for safety, provided clear and simple instructions, attempted to orient to reality, provided education on handwashing r/t positive MRSA nasal swab, and maintained Q 15min safety checks. Response : RN received pt. awake and pacing fleming and listening to headphones and start of shift. Pt. requesting his meds as soon as possible. Pt. took all mediations. Pt. ate breakfast. Pt. napped after breakfast for approx. 1 hour. 1:1 done at bedside. Pt. denies all psych symptoms but gives minimal responses to RNs questions. Pt. socializes minimally with peers. Plan : Pt. requires interruption of current crisis, medication adjustments, and a safe and supportive environment.
[2023-07-22 19:00] VITALS: RESP 18; O2SAT 98
[2023-07-22 20:00] VITALS: BP 130/89; PULSE 82; RESP 18; TEMP 97.5; O2SAT 98
--- NOTE | 2023-07-22 22:20 | NUR ---
Nursing Progress Note: Problem : Pt admitted to [place] [facility] today on 5150 for gravely disabled from our ER. Pt was evicted from his board and care. Pt has severe thought disorder that impacts his ability to make a plan to meet his needs. Pt has history of cerebral palsy, asthma, COPD , schizophrenia. Interventions : Maintained a safe and supportive, provided a safe and supportive environment, ensured contract for safety, provided clear and simple instructions, attempted to orient to reality, provided education on handwashing r/t positive MRSA nasal swab, and maintained Q 15min safety checks. Response : Pt received in dining room. He completed dinner. He went to bed early. He was compliant during medication pass. Able to make needs known. Will continue to monitor as per care plan. Plan : Pt. requires interruption of current crisis, medication adjustments, and a safe and supportive environment.
[2023-07-23] MEDS: propranolol 40mg tablet PO SCH ×3 (07:23→20:34)
[2023-07-23] MEDS: propranolol 10mg tablet PO SCH ×3 (07:23→20:34)
[2023-07-23] MEDS: cholecalciferol (vitamin D3) 1,000 unit (25mcg) tablet PO SCH (07:24)
[2023-07-23] MEDS: LORazepam 1 MG tablet PO SCH ×2 (07:24→17:22)
[2023-07-23] MEDS: docusate sod 100mg capsule PO SCH ×2 (07:24→20:34)
[2023-07-23] MEDS: pantoprazole 40mg Tablet.DR PO SCH (07:24)
[2023-07-23] MEDS: clozapine 25mg tablet PO SCH ×4 (07:24→20:35)
[2023-07-23] MEDS: benztropine 1mg tablet PO SCH ×2 (07:24→20:34)
[2023-07-23] MEDS: clozapine 100mg tablet PO SCH ×4 (07:24→20:34)
[2023-07-23] MEDS: haloperidol 5mg tablet PO SCH ×3 (07:24→20:34)
[2023-07-23] MEDS: calcium carbonate 500mg tablet PO SCH ×3 (07:24→20:34)
[2023-07-23] MEDS: Tiotropium Br/Olodaterol HCl (Stiolto Respimat Inhal Spray) IH SCH (07:26)
[2023-07-23 07:30] VITALS: BP 118/81; PULSE 80; RESP 16; TEMP 97.2; O2SAT 97
[2023-07-23] MEDS: polyethylene glycol 3350 17gm powd pack PO SCH (07:30)
[2023-07-23 07:38] VITALS: PULSE 81; RESP 16; O2SAT 98
[2023-07-23] MEDS: chlorhexidine gluconate 15ml Cup****oral rinse MM SCH ×2 (08:54→20:59)
--- NOTE | 2023-07-23 10:49 | NUR ---
Initial: Pt admit DX schizophrenia w/ hx cerebral palsy per EMR. PO mostly 100% avg regular diet meeting estimated needs. LBM 07/19 receiving routine colace and miralax; prune juice to be sent w/ lunch and dinner today to assist BM. No further nutrition interventions at this time. Will continue to follow. Rec: 1. continue regular diet; no dairy per allergy 2. continue routine Ca/vitamin D3 supplementation per MD 3. routine bowel care; prune juice once at lunch and dinner today to assit w/ BM 4. weekly wt Addendum: 07/23/23 at [address] Amended: Links added.
[2023-07-23] MEDS: NICOTINE POLACRILEX 2 MG LOZENGE BC PRN ×2 (11:26→16:38)
--- NOTE | 2023-07-23 17:52 | NUR ---
Nursing Progress Note: Problem : Pt admitted to [facility] today on 5150 for gravely disabled from our ER. Pt was evicted from his board and care. Pt has severe thought disorder that impacts his ability to make a plan to meet his needs. Pt has history of cerebral palsy, asthma, COPD , schizophrenia. Interventions : Maintained a safe and supportive, provided a safe and supportive environment, ensured contract for safety, provided clear and simple instructions, attempted to orient to reality, provided education on handwashing r/t positive MRSA nasal swab, and maintained Q 15min safety checks. Response : RN received pt. awake and pacing fleming and listening to headphones and start of shift. Pt. took all mediations. Pt. ate breakfast. Pt. napped after breakfast for approx. intermittently throughout the AM. 1:1 done at bedside. Pt. denies all psych symptoms but gives minimal responses to RNs questions. Pt. socializes minimally with peers. Pt. observed pacing the halls and listening to music much of the afternoon. Pt. observed being jovial with male peer and laughing loudly. Plan : Pt. requires interruption of current crisis, medication adjustments, and a safe and supportive environment.
[2023-07-23 19:00] VITALS: BP 109/77; PULSE 85; RESP 16; TEMP 97.4; O2SAT 97
[2023-07-23 20:15] VITALS: RESP 14
--- NOTE | 2023-07-23 23:00 | NUR ---
Nursing Progress Note: Problem : Pt admitted to [place] for [facility] today on 5150 for gravely disabled from our ER. Pt was evicted from his board and care. Pt has severe thought disorder that impacts his ability to make a plan to meet his needs. Pt has history of cerebral palsy, asthma, COPD , schizophrenia. Interventions : Maintained a safe and supportive environment, ensured contract for safety, provided clear and simple instructions, provided education on handwashing r/t positive MRSA nasal swab, and maintained Q 15min safety checks. Response : Patient pleasant and cooperative with care; compliant with medication. Patient denied SI, HI, A/VH. He appears guarded and provided minimal responses. Patient promptly retired to bed after dinner; he was provided HS snack prior to oral rinse and quickly went back to sleep. Patient was observed sleeping with his shoes on and was encouraged to remove them but refused. Does not appear to be having difficulty sleeping. Plan : Pt. requires interruption of current crisis, medication adjustments, and a safe and supportive environment.
[2023-07-24] VITALS (7 sets, daily range): BP systolic 101–114; BP diastolic 70–78; PULSE 80–99; RESP 16–18; TEMP 96.9–97.1; O2SAT 92–99
[2023-07-24] MEDS: LORazepam 1 MG tablet PO SCH ×2 (07:59→16:52)
[2023-07-24] MEDS: propranolol 10mg tablet PO SCH ×3 (07:59→21:07)
[2023-07-24] MEDS: haloperidol 5mg tablet PO SCH ×3 (07:59→21:07)
[2023-07-24] MEDS: calcium carbonate 500mg tablet PO SCH ×3 (07:59→21:07)
[2023-07-24] MEDS: benztropine 1mg tablet PO SCH ×2 (08:00→21:07)
[2023-07-24] MEDS: cholecalciferol (vitamin D3) 1,000 unit (25mcg) tablet PO SCH (08:00)
[2023-07-24] MEDS: propranolol 40mg tablet PO SCH ×3 (08:00→21:07)
[2023-07-24] MEDS: polyethylene glycol 3350 17gm powd pack PO SCH (08:00)
[2023-07-24] MEDS: clozapine 25mg tablet PO SCH ×4 (08:00→21:07)
[2023-07-24] MEDS: pantoprazole 40mg Tablet.DR PO SCH (08:00)
[2023-07-24] MEDS: chlorhexidine gluconate 15ml Cup****oral rinse MM SCH ×2 (08:00→21:07)
[2023-07-24] MEDS: clozapine 100mg tablet PO SCH ×4 (08:00→21:07)
[2023-07-24] MEDS: docusate sod 100mg capsule PO SCH ×2 (08:00→21:07)
[2023-07-24] MEDS: Tiotropium Br/Olodaterol HCl (Stiolto Respimat Inhal Spray) IH SCH (08:15)
[2023-07-24] MEDS: NICOTINE POLACRILEX 2 MG LOZENGE BC PRN (10:17)
--- NOTE | 2023-07-24 17:27 | NUR ---
Nursing Progress Note: Joel Problem : Pt admitted to [place] [facility] today on 5150 for gravely disabled from our ER. Pt was evicted from his board and care. Pt has severe thought disorder that impacts his ability to make a plan to meet his needs. Pt has history of cerebral palsy, asthma, COPD , schizophrenia. Interventions : Maintained a safe and supportive, provided a safe and supportive environment, ensured contract for safety, provided clear and simple instructions, attempted to orient to reality, provided education on handwashing r/t positive MRSA nasal swab, and maintained Q 15min safety checks. Response : Nurse received pt. awake at change of shift, walking the unit with headphones. Medications administered with no issues. 1:1 done at bedside. Pt denies all MH symptoms, answers questions minimally and mumbles. Pt attended meals and was seen pacing the hallways utilizing the unit headphones. Plan : Pt. requires interruption of current crisis, medication adjustments, and a safe and supportive environment.
--- NOTE | 2023-07-25 02:40 | NUR ---
Nursing Progress Note: Problem : Pt admitted to [place] for [facility] health today on 5150 for gravely disabled from our ER. Pt was evicted from his board and care. Pt has severe thought disorder that impacts his ability to make a plan to meet his needs. Pt has history of cerebral palsy, asthma, COPD , schizophrenia. Interventions : Maintained a safe and supportive, provided a safe and supportive environment, ensured contract for safety, provided clear and simple instructions, attempted to orient to reality, provided education on handwashing r/t positive MRSA nasal swab, and maintained Q 15min safety checks. Response : Pt had to be woken up for 1:1 and HS medications, pt denied all MH symptoms. Pt stated he missed dinner and snack, a snack was provided to pt. Pt. returned to bed and has been sleeping ever since. Plan : Pt. requires interruption of current crisis, medication adjustments, and a safe and supportive environment.
[2023-07-25 07:00] VITALS: BP 127/89; PULSE 86; RESP 16; TEMP 97; O2SAT 98
[2023-07-25] MEDS: propranolol 10mg tablet PO SCH ×3 (07:26→21:43)
[2023-07-25] MEDS: polyethylene glycol 3350 17gm powd pack PO SCH (07:26)
[2023-07-25] MEDS: chlorhexidine gluconate 15ml Cup****oral rinse MM SCH ×2 (07:26→21:39)
[2023-07-25] MEDS: propranolol 40mg tablet PO SCH ×3 (07:26→21:43)
[2023-07-25] MEDS: docusate sod 100mg capsule PO SCH ×2 (07:26→21:39)
[2023-07-25] MEDS: cholecalciferol (vitamin D3) 1,000 unit (25mcg) tablet PO SCH (07:27)
[2023-07-25] MEDS: benztropine 1mg tablet PO SCH ×2 (07:27→21:39)
[2023-07-25] MEDS: LORazepam 1 MG tablet PO SCH ×2 (07:27→16:32)
[2023-07-25] MEDS: pantoprazole 40mg Tablet.DR PO SCH (07:27)
[2023-07-25] MEDS: calcium carbonate 500mg tablet PO SCH ×3 (07:27→21:40)
[2023-07-25] MEDS: haloperidol 5mg tablet PO SCH ×3 (07:27→21:40)
[2023-07-25] MEDS: Tiotropium Br/Olodaterol HCl (Stiolto Respimat Inhal Spray) IH SCH (07:36)
[2023-07-25] MEDS: clozapine 25mg tablet PO SCH ×4 (07:36→21:40)
[2023-07-25] MEDS: clozapine 100mg tablet PO SCH ×4 (07:36→21:40)
[2023-07-25] MEDS: magnesium hydroxide 30ml (MOM) UD suspension PO PRN (09:02)
[2023-07-25] MEDS: NICOTINE POLACRILEX 2 MG LOZENGE BC PRN (09:02)
--- NOTE | 2023-07-25 17:49 | NUR ---
Nursing Progress Note: Problem : Pt admitted to [place] for [facility] health today on 5150 for gravely disabled from our ER. Pt was evicted from his board and care. Pt has severe thought disorder that impacts his ability to make a plan to meet his needs. Pt has history of cerebral palsy, asthma, COPD , schizophrenia. Interventions : Maintained a safe and supportive, provided a safe and supportive environment, ensured contract for safety, provided clear and simple instructions, attempted to orient to reality, provided education on handwashing r/t positive MRSA nasal swab, and maintained Q 15min safety checks. Response : Patient awake staring up at the ceiling at change of shift. Patient gets out of bed and starts pacing the hallways with headphones on. Patient requesting medications early. Patient looks very intense approximately 1 hour prior to med pass, patient appears to become internally agitated. Patient does state that he hears A/H, but doesn't go into any detail about them. Patient continues throughout the day pacing. Patient did lay down in bed for a short time, and stared at the wall. Patient denies depression and SI. Plan : Pt. requires interruption of current crisis, medication adjustments, and a safe and supportive environment.
[2023-07-25 19:00] VITALS: BP 116/77; PULSE 83; RESP 16; TEMP 98.3; O2SAT 97
[2023-07-25 20:21] VITALS: PULSE 82; RESP 16; O2SAT 92
--- NOTE | 2023-07-25 23:41 | NUR ---
Nursing Progress Note: Problem : Pt admitted to [place] for [facility] health today on 5150 for gravely disabled from our ER. Pt was evicted from his board and care. Pt has severe thought disorder that impacts his ability to make a plan to meet his needs. Pt has history of cerebral palsy, asthma, COPD , schizophrenia. Interventions : Maintained a safe and supportive environment, ensured contract for safety, provided clear and simple instructions, provided education on handwashing r/t positive MRSA nasal swab, and maintained Q 15min safety checks. Response : Pt. received standing near the dinner trays at change of shift. Pt. comes to this comic writer to ask if he can get double portion meals; Pt. states he is still hungry after meals. Participated in evening snack and went to bed early. Pt. was difficult to wake but was compliant with all medications. Pt. denies SI/HI/AH/VH. Pt. appears to be guarded. Pt. is observed and appears to be sleeping with no difficulty. Plan : Pt. requires interruption of current crisis, medication adjustments, and a safe and supportive environment.
[2023-07-26 06:23] VITALS: RESP 16
[2023-07-26] MEDS: polyethylene glycol 3350 17gm powd pack PO SCH (07:14)
[2023-07-26] MEDS: propranolol 10mg tablet PO SCH ×3 (07:14→20:25)
[2023-07-26] MEDS: chlorhexidine gluconate 15ml Cup****oral rinse MM SCH ×2 (07:14→20:22)
[2023-07-26] MEDS: calcium carbonate 500mg tablet PO SCH ×3 (07:15→20:23)
[2023-07-26] MEDS: cholecalciferol (vitamin D3) 1,000 unit (25mcg) tablet PO SCH (07:15)
[2023-07-26] MEDS: benztropine 1mg tablet PO SCH ×2 (07:15→20:23)
[2023-07-26] MEDS: propranolol 40mg tablet PO SCH ×3 (07:16→20:23)
[2023-07-26] MEDS: clozapine 25mg tablet PO SCH ×4 (07:16→20:23)
[2023-07-26] MEDS: LORazepam 1 MG tablet PO SCH ×2 (07:16→17:39)
[2023-07-26] MEDS: docusate sod 100mg capsule PO SCH ×2 (07:16→20:23)
[2023-07-26] MEDS: clozapine 100mg tablet PO SCH ×4 (07:16→20:22)
[2023-07-26] MEDS: pantoprazole 40mg Tablet.DR PO SCH (07:16)
[2023-07-26] MEDS: haloperidol 5mg tablet PO SCH ×3 (07:17→20:22)
[2023-07-26] MEDS: Tiotropium Br/Olodaterol HCl (Stiolto Respimat Inhal Spray) IH SCH (07:17)
[2023-07-26 07:29] VITALS: PULSE 86; RESP 18; O2SAT 92
[2023-07-26 07:42] VITALS: BP 115/82; PULSE 99; RESP 16; TEMP 97.7; O2SAT 99
[2023-07-26] MEDS: NICOTINE POLACRILEX 2 MG LOZENGE BC PRN ×2 (09:52→14:06)
--- NOTE | 2023-07-26 17:00 | NUR ---
Nursing Progress Note: Problem : Pt admitted to [place] for Behavioral health today on 5150 for gravely disabled from our ER. Pt was evicted from his board and care. Pt has severe thought disorder that impacts his ability to make a plan to meet his needs. Pt has history of cerebral palsy, asthma, COPD , schizophrenia. Interventions : Maintained a safe and supportive environment, ensured contract for safety, provided clear and simple instructions, provided education on handwashing r/t positive MRSA nasal swab, and maintained Q 15min safety checks. Response: Upon arrival to shift noted walking halls quietly. Asked this nurse when he could have his PRN meds. When asked him which one patient reports, I dont know, Ativan? Made him aware that meds will be given shortly. Compliant with medications. PRN Nicotine lozenge given. Notes upon observation an intense scowl at baseline, however is guarded, quiet, calm and cooperative. Noted wearing dirty green hospital scrubs with fair hygiene. Walks halls all day. Points at male RN and reports, Hes a pimp. Also mentioned that he likes the RN, were cool. The further conversation went noted patient to be disorganized in thought and speech. Will continue to monitor. Plan : Pt. requires interruption of current crisis, medication adjustments, and a safe and supportive environment.
[2023-07-26 19:33] VITALS: BP 119/74; PULSE 78; RESP 18; TEMP 98.6; O2SAT 98
[2023-07-26 20:18] VITALS: PULSE 73; RESP 16; O2SAT 93
--- NOTE | 2023-07-27 01:32 | NUR ---
Nursing Progress Note: Problem : Pt admitted to [place] for Behavioral health today on 5150 for gravely disabled from our ER. Pt was evicted from his board and care. Pt has severe thought disorder that impacts his ability to make a plan to meet his needs. Pt has history of cerebral palsy, asthma, COPD , schizophrenia. Interventions : Maintained a safe and supportive environment, ensured contract for safety, provided clear and simple instructions, provided education on handwashing r/t positive MRSA nasal swab, and maintained Q 15min safety checks. Response : Patient pleasant and cooperative with care; compliant with medication. He denied SI, HI, A/VH; appears guarded providing minimal responses. Patient was social with male peer and participated in HS snack prior to bed; observed sleeping and does not appear to be having difficulty. Plan : Pt. requires interruption of current crisis, medication adjustments, and a safe and supportive environment.
[2023-07-27 07:00] VITALS: RESP 16; O2SAT 99
[2023-07-27 07:09] VITALS: BP 112/75; PULSE 74; RESP 16; TEMP 96.9; O2SAT 99
[2023-07-27] MEDS: propranolol 10mg tablet PO SCH ×3 (07:52→21:30)
[2023-07-27] MEDS: propranolol 40mg tablet PO SCH ×3 (07:52→21:30)
[2023-07-27] MEDS: polyethylene glycol 3350 17gm powd pack PO SCH (07:52)
[2023-07-27] MEDS: chlorhexidine gluconate 15ml Cup****oral rinse MM SCH ×2 (07:52→21:24)
[2023-07-27] MEDS: cholecalciferol (vitamin D3) 1,000 unit (25mcg) tablet PO SCH (07:53)
[2023-07-27] MEDS: benztropine 1mg tablet PO SCH ×2 (07:53→21:24)
[2023-07-27] MEDS: clozapine 100mg tablet PO SCH ×3 (07:53→21:27)
[2023-07-27] MEDS: haloperidol 5mg tablet PO SCH ×3 (07:53→21:25)
[2023-07-27] MEDS: docusate sod 100mg capsule PO SCH ×2 (07:53→21:24)
[2023-07-27] MEDS: pantoprazole 40mg Tablet.DR PO SCH (07:53)
[2023-07-27] MEDS: clozapine 25mg tablet PO SCH ×3 (07:53→21:26)
[2023-07-27] MEDS: LORazepam 1 MG tablet PO SCH ×2 (07:53→18:14)
[2023-07-27] MEDS: calcium carbonate 500mg tablet PO SCH ×3 (07:53→21:25)
[2023-07-27] MEDS: Tiotropium Br/Olodaterol HCl (Stiolto Respimat Inhal Spray) IH SCH (07:54)
[2023-07-27 07:55] VITALS: PULSE 89; RESP 16; O2SAT 96
--- NOTE | 2023-07-27 10:24 | NUR ---
Patient had a single episode of vomiting in the group room this morning. Pt endorsing that he "didn't eat enough this morning". He was offered PRN Zofran which he declined. Pt encouraged to drink PO fluids and was provided with a water pitcher at his bedside. Will continue to monitor.
[2023-07-27] MEDS: ondansetron 4mg rapidly disintigrating tab PO PRN (11:05)
[2023-07-27 12:20] VITALS: BP 146/110; PULSE 80; RESP 16; O2SAT 100
[2023-07-27] MEDS ORDERED: clozapine 100mg tablet PO SCH (12:30)
[2023-07-27] MEDS ORDERED: LORazepam 1 MG tablet PO ONE (12:43)
[2023-07-27] MEDS ORDERED: QUEtiapine 25mg tablet PO ONE (12:45)
[2023-07-27] MEDS: NICOTINE POLACRILEX 2 MG LOZENGE BC PRN (16:59)
--- NOTE | 2023-07-27 17:06 | NUR ---
Nursing Progress Note: Greg Problem : Pt admitted to [place] for Behavioral health today on 5150 for gravely disabled from our ER. Pt was evicted from his board and care. Pt has severe thought disorder that impacts his ability to make a plan to meet his needs. Pt has history of cerebral palsy, asthma, COPD , schizophrenia. Interventions : Provided 1:1 assessment, maintained a safe and supportive environment, ensured contract for safety, provided clear and simple instructions, provided education on handwashing r/t positive MRSA nasal swab, and maintained Q 15min safety checks. Response: Patient received walking around the unit at shift change. He is observed listening to music through portable headphones. Pt is noted to be guarded and pacing throughout the morning. He was receptive to scheduled medication and 1:1 assessment. He joins for all meal and snacks in the group room with peers. Pt was noted to have thrown up after lunch today. Pt endorsed that he "didn't eat enough this morning". He was offered PRN Zofran which he declined. Pt encouraged to drink PO fluids and was provided with a water pitcher at his bedside. He is noted to have an intense scowl expression and often times stands at the nurses station staring at staff. Pt is observed pacing around the unit slowly throughout the shift. He denies SI/HI, AH or VH, however, appears to be responding to IS. Pt noted mumbling quietly to himself under his breath. He is disorganized in thought and speech. Plan : Pt. requires interruption of current crisis, medication adjustments, and a safe and supportive environment.
[2023-07-27 19:00] VITALS: BP 130/87; PULSE 77; RESP 16; TEMP 98; O2SAT 95
[2023-07-27 20:04] VITALS: PULSE 79; RESP 16; O2SAT 93
[2023-07-28] VITALS (7 sets, daily range): BP systolic 90–143; BP diastolic 52–96; PULSE 76–89; RESP 16–17; TEMP 97.1–97.6; O2SAT 96–98
--- NOTE | 2023-07-28 05:10 | NUR ---
RN PROGRESS NOTE: LEGAL HOLD: LPS for GD PROBLEM: Client was evicted from his board and care. Pt has severe thought disorder that impacts his ability to make a plan to meet his needs. Pt has history of cerebral palsy, asthma, COPD , schizophrenia. INTERVENTIONS: Maintained a safe and supportive environment, ensured contract for safety, provided clear and simple instructions, provided education on handwashing r/t positive MRSA nasal swab, and maintained Q 15min safety checks. RESPONSE: Patient isolated in his room. He was cooperative and took his PM meds. He denied SI, HI, A/VH; appears guarded, makes direct eye contact, limited verbal responses. Fell asleep without difficulty. PLAN: Pt. requires interruption of current crisis, medication adjustments, and a safe and supportive environment.
[2023-07-28] MEDS: NICOTINE POLACRILEX 2 MG LOZENGE BC PRN ×2 (07:29→15:46)
[2023-07-28] MEDS ORDERED: clozapine 100mg tablet PO SCH (07:30)
[2023-07-28] MEDS: Tiotropium Br/Olodaterol HCl (Stiolto Respimat Inhal Spray) IH SCH (07:36)
[2023-07-28] MEDS: docusate sod 100mg capsule PO SCH ×2 (08:01→20:27)
[2023-07-28] MEDS: clozapine 100mg tablet PO SCH ×3 (08:01→20:27)
[2023-07-28] MEDS: haloperidol 5mg tablet PO SCH ×3 (08:02→20:27)
[2023-07-28] MEDS: benztropine 1mg tablet PO SCH ×2 (08:02→20:27)
[2023-07-28] MEDS: calcium carbonate 500mg tablet PO SCH ×3 (08:02→20:27)
[2023-07-28] MEDS: propranolol 40mg tablet PO SCH ×3 (08:02→20:34)
[2023-07-28] MEDS: propranolol 10mg tablet PO SCH ×3 (08:02→20:34)
[2023-07-28] MEDS: clozapine 25mg tablet PO SCH ×3 (08:02→20:27)
[2023-07-28] MEDS: polyethylene glycol 3350 17gm powd pack PO SCH (08:03)
[2023-07-28] MEDS: cholecalciferol (vitamin D3) 1,000 unit (25mcg) tablet PO SCH (08:03)
[2023-07-28] MEDS: pantoprazole 40mg Tablet.DR PO SCH (08:03)
[2023-07-28] MEDS: LORazepam 1 MG tablet PO SCH ×3 (08:03→17:42)
[2023-07-28] MEDS: chlorhexidine gluconate 15ml Cup****oral rinse MM SCH ×2 (08:37→20:27)
[2023-07-28] MEDS: ondansetron 4mg rapidly disintigrating tab PO PRN (10:26)
--- NOTE | 2023-07-28 14:52 | NUR ---
Nursing Progress Note: Problem : Pt admitted to [place] for [facility]al health today on 5150 for gravely disabled from our ER. Pt was evicted from his board and care. Pt has severe thought disorder that impacts his ability to make a plan to meet his needs. Pt has history of cerebral palsy, asthma, COPD , schizophrenia. Interventions : 1:1 assessment, therapeutic communication, active listening, maintained a safe and supportive environment, provided clear and simple instructions, provided education on handwashing, medication administration/education/monitoring, behavior monitoring and intervention as needed; provided distraction, redirection, reality orientation, positive reinforcement, and maintained Q15 minute safety checks. Response: Pt was up before breakfast pacing the unit. Pt asked for a nicotine lozenge. Pt was cooperative with morning medications. Pt c/o nausea and was given PRN Zofran 4 mg ODT at 1026 with good effect. Pt showered. Pt's speech is somewhat disorganized and he appears to be thought blocking at times. Pt frequently has an intense affect, he appears angry though does not seem to be angry. Pt is pleasant and cooperative. When asked if he heard voices, pt paused and did not answer. When the question was repeated, pt replied, "yeah, I hear voices, is that a bad thing?" Pt denied CAH. Pt appears internally preoccupied, pt did not appear to be responding to internal stimuli. Pt frequently gets hiccups. Plan : Pt. requires interruption of current crisis, medication adjustments, and a safe and supportive environment.
--- NOTE | 2023-07-29 00:21 | NUR ---
PROBLEM: Client was evicted from his board and care. Pt has severe thought disorder that impacts his ability to make a plan to meet his needs. Pt has history of cerebral palsy, asthma, COPD , schizophrenia. INTERVENTIONS: Maintained a safe and supportive environment, ensured contract for safety, provided clear and simple instructions, provided education on handwashing r/t positive MRSA nasal swab, and maintained Q 15min safety checks. RESPONSE: Patient received in room. He isolated this shift. His Metoprolol was held due to BP 97/53 and 2nd BP read of 90/52. He was cooperative with the rest of his medications. He reports his previous board and care will not take him back to do his smoking. He reports he has tried smoking cessation aids but does not give patient the same effects. He does not have a plan for food or clothing. Patient is LPS conserved. PLAN: Pt. requires interruption of current crisis, medication adjustments, and a safe and supportive environment.
[2023-07-29] MEDS: NICOTINE POLACRILEX 2 MG LOZENGE BC PRN ×3 (06:01→17:20)
[2023-07-29 07:32] VITALS: BP 101/74; PULSE 92; RESP 16; TEMP 97.7; O2SAT 98
[2023-07-29 07:34] VITALS: PULSE 94; RESP 18; O2SAT 98
[2023-07-29] MEDS: Tiotropium Br/Olodaterol HCl (Stiolto Respimat Inhal Spray) IH SCH (07:34)
[2023-07-29 07:39] VITALS: PULSE 94; RESP 18
[2023-07-29] MEDS: propranolol 40mg tablet PO SCH ×3 (08:13→21:00)
[2023-07-29] MEDS: LORazepam 1 MG tablet PO SCH ×3 (08:13→17:20)
[2023-07-29] MEDS: clozapine 100mg tablet PO SCH ×3 (08:14→21:11)
[2023-07-29] MEDS: calcium carbonate 500mg tablet PO SCH ×3 (08:14→21:12)
[2023-07-29] MEDS: haloperidol 5mg tablet PO SCH ×3 (08:14→21:11)
[2023-07-29] MEDS: pantoprazole 40mg Tablet.DR PO SCH (08:14)
[2023-07-29] MEDS: docusate sod 100mg capsule PO SCH ×2 (08:14→21:11)
[2023-07-29] MEDS: clozapine 25mg tablet PO SCH ×3 (08:14→21:11)
[2023-07-29] MEDS: benztropine 1mg tablet PO SCH ×2 (08:15→21:11)
[2023-07-29] MEDS: propranolol 10mg tablet PO SCH ×3 (08:15→21:00)
[2023-07-29] MEDS: chlorhexidine gluconate 15ml Cup****oral rinse MM SCH ×2 (08:16→21:12)
[2023-07-29] MEDS: cholecalciferol (vitamin D3) 1,000 unit (25mcg) tablet PO SCH (08:16)
[2023-07-29] MEDS: polyethylene glycol 3350 17gm powd pack PO SCH (08:16)
--- NOTE | 2023-07-29 12:56 | NUR ---
Sent placement packet to [place] office with notes (07/22-07/29). SHREE Meyer
--- NOTE | 2023-07-29 15:20 | NUR ---
Nursing Progress Note: Problem: Pt admitted to [place] for Behavioral health today on 5150 for gravely disabled from our ER. Pt was evicted from his board and care. Pt has severe thought disorder that impacts his ability to make a plan to meet his needs. Pt has history of cerebral palsy, asthma, COPD , schizophrenia. Interventions: Provided 1:1 assessment with therapeutic communication and active listening, provided education on handwashing, medication administration/education/monitoring, behavior monitoring and intervention as needed; provided distraction, redirection, reality orientation, positive reinforcement, and maintained Q15 minute safety checks. Response: Pt up pacing the unit most of the day. Pt mumbles during the morning assessment, some thought blocking noted nods his head 'yes" to most questions. He is cooperative with medications and does not want to be educated to meds, dosages or frequency. Continues to endorse voices and appears to be internally preoccupied. Plan: Pt. requires interruption of current crisis, medication adjustments, and a safe and supportive environment.
[2023-07-29 19:17] VITALS: PULSE 74; RESP 16; O2SAT 95
[2023-07-29 19:46] VITALS: BP 98/55; PULSE 75; RESP 14; TEMP 97.9; O2SAT 94
[2023-07-30] VITALS (8 sets, daily range): BP systolic 80–141; BP diastolic 45–102; PULSE 72–95; RESP 14–20; TEMP 97.8–98.1; O2SAT 94–98
--- NOTE | 2023-07-30 03:58 | NUR ---
Nursing Progress Note: Problem: Pt admitted to [place] for Behavioral health today on 5150 for gravely disabled from our ER. Pt was evicted from his board and care. Pt has severe thought disorder that impacts his ability to make a plan to meet his needs. Pt has history of cerebral palsy, asthma, COPD , schizophrenia. Interventions: Provided 1:1 assessment with therapeutic communication and active listening, provided education on handwashing, medication administration/education/monitoring, behavior monitoring and intervention as needed; provided distraction, redirection, reality orientation, positive reinforcement, and maintained Q15 minute safety checks. Response: Patient received in room. He continues to isolate. He slept early this shift. He was cooperative with his medications. Denies pain. Denies nausea. He does not have a plan for food or clothing. Patient is LPS conserved. Plan: Pt. requires interruption of current crisis, medication adjustments, and a safe and supportive environment.
[2023-07-30] MEDS: NICOTINE POLACRILEX 2 MG LOZENGE BC PRN ×4 (05:28→16:24)
[2023-07-30] MEDS: Tiotropium Br/Olodaterol HCl (Stiolto Respimat Inhal Spray) IH SCH (07:34)
[2023-07-30] MEDS: cholecalciferol (vitamin D3) 1,000 unit (25mcg) tablet PO SCH (07:35)
[2023-07-30] MEDS: pantoprazole 40mg Tablet.DR PO SCH (07:35)
[2023-07-30] MEDS: clozapine 25mg tablet PO SCH ×3 (07:35→21:13)
[2023-07-30] MEDS: clozapine 100mg tablet PO SCH ×3 (07:35→21:13)
[2023-07-30] MEDS: calcium carbonate 500mg tablet PO SCH ×3 (07:35→21:14)
[2023-07-30] MEDS: polyethylene glycol 3350 17gm powd pack PO SCH (07:35)
[2023-07-30] MEDS: propranolol 10mg tablet PO SCH ×4 (07:35→21:13)
[2023-07-30] MEDS: haloperidol 5mg tablet PO SCH ×3 (07:35→21:14)
[2023-07-30] MEDS: chlorhexidine gluconate 15ml Cup****oral rinse MM SCH ×2 (07:35→21:15)
[2023-07-30] MEDS: docusate sod 100mg capsule PO SCH ×2 (07:35→21:13)
[2023-07-30] MEDS: propranolol 40mg tablet PO SCH ×4 (07:35→21:13)
[2023-07-30] MEDS: benztropine 1mg tablet PO SCH ×2 (07:35→21:14)
[2023-07-30] MEDS: LORazepam 1 MG tablet PO SCH ×3 (07:38→17:25)
[2023-07-30 10:01] LABS: ALBUMIN 3.6 G/DL (3.4-5.0); ANION GAP 8 (8-16); BLOOD UREA NITROGEN 7 MG/DL (7-18); BUN/CREATININE RATIO 7.9 (10.0-20.0); CALCIUM 7.9 MG/DL (8.5-10.1); CHLORIDE 85 MMOL/L (99-107); CREATININE 0.89 MG/DL (0.60-1.10); GLUCOSE 130 MG/DL (70-104); POTASSIUM 4.2 MMOL/L (3.5-5.1); TOTAL CARBON DIOXIDE 21.9 MMOL/L (24-32); eCRCL 104 ML/MIN; eGFR > 90 ML/MIN
--- NOTE | 2023-07-30 10:04 | NUR ---
Critical lab: Lab called. Pt has NA+ 115. Spoke with Dr Scott, otis hospitalist. Dr Christiansen gives orders. Pt is on fluid restriction 1 pitcher per shift. Pt will be on IV fluid NS@50cc/hr. Pt moves to room 329 and has water turned off. Pt will be LOS .
[2023-07-30 10:07] LABS: SODIUM 115 MMOL/L (135-145)
[2023-07-30] MEDS ORDERED: normal saline 1000ml 1,000 ML IV SCH (10:45)
--- NOTE | 2023-07-30 10:51 | NUR ---
Reassessment: PO intake slightly fluctuates however overall pt eating well, documented with mostly 100% PO intake of meals though has refused two meals and with average 50% PO intake of two meals since last RD assessment (07/23), overall pt still meeting estimated nutrient needs. LBM 07/29 per EMR. No nutrition intervention warranted at this time. Will continue to follow and make recommendations as appropriate. Recommendations: 1. Continue regular diet; no dairy per allergy 2. Continue routine Ca/vitamin D3 supplementation per MD 3. Routine bowel care 4. Weekly scaled weights Addendum: 07/30/23 at [address] Amended: Links added.
[2023-07-30 15:20] LABS: ANION GAP 5 (8-16); BLOOD UREA NITROGEN 6 MG/DL (7-18); BUN/CREATININE RATIO 7.8 (10.0-20.0); CALCIUM 8.7 MG/DL (8.5-10.1); CHLORIDE 90 MMOL/L (99-107); CREATININE 0.77 MG/DL (0.60-1.10); GLUCOSE 63 MG/DL (70-104); POTASSIUM 3.6 MMOL/L (3.5-5.1); SODIUM 123 MMOL/L (135-145); TOTAL CARBON DIOXIDE 28.5 MMOL/L (24-32); eCRCL 120 ML/MIN; eGFR > 90 ML/MIN
[2023-07-30] MEDS: dextrose 5%-water 1,000 ML IV SCH (16:25)
--- NOTE | 2023-07-30 17:55 | NUR ---
Nursing Progress Note: Problem: Pt admitted to [place] for [facility]al health today on 5150 for gravely disabled from our ER. Pt was evicted from his board and care. Pt has severe thought disorder that impacts his ability to make a plan to meet his needs. Pt has history of cerebral palsy, asthma, COPD , schizophrenia. Interventions: Provided 1:1 assessment with therapeutic communication and active listening, provided education on handwashing, medication administration/education/monitoring, behavior monitoring and intervention as needed; provided distraction, redirection, reality orientation, positive reinforcement, and maintained Q15 minute safety checks. Response: Upon arrival to shift noted patient wandering halls. Pleasant, calm and cooperative. Greeted this nurse in a good mood with expressive face , tony Da Silva. Noted to be less guarded. Softer eyes and brighter affect at times. Denies MH s/sx. Disorganized speech and thought content. Unable to comprehend staff requests at times. Upon AM lab draw noted Na+ 115 critical low. Received orders for Normal Saline 0.9% at 50 ml/hr. Repeat labs to be drawn q4h with value NOT to rise more than 0.5 MMOL/L per hour or 2 MMOL/L every 4 hours[address] IV #20 gauge to left hand. Fluid restriction placed for 1. 5 L (1500 ml) daily. Moved to a private room 329. LOS placed with patient. Educated patient on walking techniques with IV pole to avoid falls. 1500 Na+ lab check resulted 123. Hospitalist called. Stopped NS IVFs. New orders to start D5W at 50 ml/hr. Next lab check at 1800. Will continue to monitor. Plan: Pt. requires interruption of current crisis, medication adjustments, and a safe and supportive environment. Addendum: 07/30/23 at 1821 by Rekha Walton RN Compliant with meds. PRN nicotine lozenge given.
[2023-07-30 22:04] LABS: ALBUMIN 3.4 G/DL (3.4-5.0); ANION GAP 7 (8-16); BLOOD UREA NITROGEN 9 MG/DL (7-18); CALCIUM 7.8 MG/DL (8.5-10.1); CHLORIDE 92 MMOL/L (99-107); CREATININE 0.82 MG/DL (0.60-1.10); GLUCOSE 344 MG/DL (70-104); POTASSIUM 3.6 MMOL/L (3.5-5.1); SODIUM 121 MMOL/L (135-145); TOTAL CARBON DIOXIDE 22.1 MMOL/L (24-32); eCRCL 113 ML/MIN; eGFR > 90 ML/MIN
[2023-07-30 22:38] LABS: ALBUMIN 3.8 G/DL (3.4-5.0); ANION GAP 7 (8-16); BLOOD UREA NITROGEN 10 MG/DL (7-18); BUN/CREATININE RATIO 9.6 (10.0-20.0); CALCIUM 8.7 MG/DL (8.5-10.1); CHLORIDE 97 MMOL/L (99-107); CREATININE 1.04 MG/DL (0.60-1.10); GLUCOSE 133 MG/DL (70-104); POTASSIUM 3.9 MMOL/L (3.5-5.1); SODIUM 131 MMOL/L (135-145); TOTAL CARBON DIOXIDE 26.8 MMOL/L (24-32); eCRCL 89 ML/MIN; eGFR 80 ML/MIN
--- NOTE | 2023-07-31 02:00 | NUR ---
Nursing Progress Note: Problem : Pt admitted to [place] for [facility] health today on 5150 for gravely disabled from our ER. Pt was evicted from his board and care. Pt has severe thought disorder that impacts his ability to make a plan to meet his needs. Pt has history of cerebral palsy, asthma, COPD , schizophrenia. Interventions : Maintained a safe and supportive environment, ensured contract for safety, provided clear and simple instructions, provided education on handwashing r/t positive MRSA nasal swab, and maintained Q 15min safety checks. Response : Patient pleasant and cooperative with care; compliant with medication. Patient appeared fatigued and difficult to arouse during med pass. He denied SI, HI, A/VH. Patient was provided HS snack. He remains LOS d/t continuous IV. He remains on fluid restriction d/t hyponatremia and has been cooperative. Sodium levels continued to be monitored at this time. Patient appears to be sleeping without difficulty. Plan : Pt. requires interruption of current crisis, medication adjustments, and a safe and supportive environment.
[2023-07-31] MEDS: NICOTINE POLACRILEX 2 MG LOZENGE BC PRN ×4 (06:08→17:37)
--- NOTE | 2023-07-31 07:43 | NUR ---
PAGED HOSPITALIST Greg Adam rm 329 Na level increasing 8 mmol/l q 5-8 hours. Currently has D5W running at 50. Awaiting lab draw this AM. Last lab draw was 07/30@2214. (2100 draw is inaccurate - drawn from line).
[2023-07-31 07:45] VITALS: BP 128/90; PULSE 85; RESP 16; TEMP 98; O2SAT 98
[2023-07-31] MEDS: propranolol 10mg tablet PO SCH ×3 (07:51→20:55)
[2023-07-31] MEDS: haloperidol 5mg tablet PO SCH ×3 (07:51→20:54)
[2023-07-31] MEDS: cholecalciferol (vitamin D3) 1,000 unit (25mcg) tablet PO SCH (07:51)
[2023-07-31] MEDS: LORazepam 1 MG tablet PO SCH ×3 (07:51→17:03)
[2023-07-31] MEDS: clozapine 25mg tablet PO SCH ×3 (07:51→20:54)
[2023-07-31] MEDS: chlorhexidine gluconate 15ml Cup****oral rinse MM SCH ×2 (07:51→20:54)
[2023-07-31] MEDS: docusate sod 100mg capsule PO SCH ×2 (07:51→20:54)
[2023-07-31 07:52] LABS: BASOPHILS % (AUTO) 0.1 % (0-1); EOSINOPHILS % (AUTO) 0 % (0-6); HEMATOCRIT 44.5 % (42.0-52.0); HEMOGLOBIN 15.6 g/dl (14.0-17.9); LYMPHOCYTES # (AUTO) 0.8 X10'3 (1.1-4.8); LYMPHOCYTES % (AUTO) 13.8 % (21-51); MEAN CORPUSCULAR HEMOGLOBIN 32.1 PG (27.0-31.0); MEAN CORPUSCULAR HGB CONC 35.1 g/dL (33.0-36.5); MEAN CORPUSCULAR VOLUME 91.5 FL (78-98); MEAN PLATELET VOLUME 8.3 FL (7.4-10.4); MONOCYTES # (AUTO) 0.5 X10'3 (0-0.9); MONOCYTES % (AUTO) 8.1 % (2-12); NEUTROPHILS # (AUTO) 4.4 X10'3 (1.8-7.7); PLATELET COUNT 153 X10'3 (140-440); RED BLOOD COUNT 4.87 X10'6 (4.70-6.10); RED CELL DISTRIBUTION WIDTH 13.8 % (11.5-14.5); WHITE BLOOD COUNT 5.7 X10'3 (4.5-11.0)
[2023-07-31] MEDS: clozapine 100mg tablet PO SCH ×3 (07:52→20:54)
[2023-07-31] MEDS: pantoprazole 40mg Tablet.DR PO SCH (07:52)
[2023-07-31] MEDS: polyethylene glycol 3350 17gm powd pack PO SCH (07:52)
[2023-07-31] MEDS: benztropine 1mg tablet PO SCH ×2 (07:52→20:54)
[2023-07-31] MEDS: propranolol 40mg tablet PO SCH ×3 (07:52→20:55)
[2023-07-31] MEDS: calcium carbonate 500mg tablet PO SCH ×3 (07:52→20:54)
[2023-07-31] MEDS: Tiotropium Br/Olodaterol HCl (Stiolto Respimat Inhal Spray) IH SCH (08:07)
[2023-07-31 08:08] VITALS: PULSE 110; RESP 16; O2SAT 98
[2023-07-31 08:18] VITALS: PULSE 101; RESP 17
[2023-07-31 08:31] LABS: ALBUMIN 4.2 G/DL (3.4-5.0); ANION GAP 6 (8-16); BLOOD UREA NITROGEN 10 MG/DL (7-18); BUN/CREATININE RATIO 9.7 (10.0-20.0); CALCIUM 9.4 MG/DL (8.5-10.1); CHLORIDE 99 MMOL/L (99-107); CREATININE 1.03 MG/DL (0.60-1.10); GLUCOSE 112 MG/DL (70-104); POTASSIUM 4.5 MMOL/L (3.5-5.1); SODIUM 133 MMOL/L (135-145); TOTAL CARBON DIOXIDE 28.1 MMOL/L (24-32); eCRCL 90 ML/MIN; eGFR 80 ML/MIN
--- NOTE | 2023-07-31 08:38 | NUR ---
2nd page sent to hospitalist. Na level now 133
--- NOTE | 2023-07-31 09:06 | NUR ---
Made 3rd attempt to reach Hospitalist. Called cell phone, left voicemail and paged. Waiting on callback. Wish to notify them that Na+ had drastic increase in value. Aware of the risk a Sodium shift can have on the body. Patient compliant on fluid restriction as the primary cause of crit low Na+ was excessive oral fluid intake. Patient currently on D5W at 50 ml/hr. No neuro changes noted. Patient denies any changes in passed 24 hours.
--- NOTE | 2023-07-31 09:20 | NUR ---
Called resident physician and received orders for 1. strict intake/output 2. 2 L daily fluid restriction 3. BMP lab tomorrow AM 4. D5W at 50 ml/hr. Resident MD reports that he will call back after he's looked over patient's chart.
[2023-07-31] MEDS: dextrose 5%-water 1,000 ML IV SCH (10:39)
[2023-07-31] MEDS: ondansetron 4mg rapidly disintigrating tab PO PRN (12:38)
[2023-07-31 14:35] LABS: ALBUMIN 4.1 G/DL (3.4-5.0); ANION GAP 6 (8-16); BLOOD UREA NITROGEN 10 MG/DL (7-18); BUN/CREATININE RATIO 9.6 (10.0-20.0); CALCIUM 9.1 MG/DL (8.5-10.1); CHLORIDE 99 MMOL/L (99-107); CREATININE 1.04 MG/DL (0.60-1.10); GLUCOSE 139 MG/DL (70-104); POTASSIUM 4.1 MMOL/L (3.5-5.1); SODIUM 131 MMOL/L (135-145); TOTAL CARBON DIOXIDE 25.6 MMOL/L (24-32); eCRCL 89 ML/MIN; eGFR 80 ML/MIN
--- NOTE | 2023-07-31 15:32 | NUR ---
Nursing Progress Note: Problem : Pt admitted to [place] for [facility] health today on 5150 for gravely disabled from our ER. Pt was evicted from his board and care. Pt has severe thought disorder that impacts his ability to make a plan to meet his needs. Pt has history of cerebral palsy, asthma, COPD , schizophrenia. Interventions : Maintained a safe and supportive environment, ensured contract for safety, provided clear and simple instructions, provided education on handwashing r/t positive MRSA nasal swab, and maintained Q 15min safety checks. Response : Upon arrival to shift noted patient wandering halls. Pleasant, calm and cooperative. Noted to be more open and less guarded. Scowl continues at baseline however patient is calm and cooperative. Denies MH s/sx. Disorganized speech and thought content. Unable to comprehend staff requests at times, does well with reminders. Noted last lab result was last night was 131. Placed AM lab order in, resulted at 133. Resident physician gave orders to maintain fluid restriction of 2-L max daily oral fluids in which he is tolerating well. Strict intake/output continues. Repeat BMP to be rechecked tomorrow AM. Compliant with AM meds. PRN Nicotine Lozenge and Zofran given. Later in afternoon, noted IV sight was red and called resident physician, received orders to d/c D5W. LOS discontinued. Will continue to monitor patient I/Os. VSS. Will continue to monitor. Plan : Pt. requires interruption of current crisis, medication adjustments, and a safe and supportive environment.
--- NOTE | 2023-07-31 17:59 | NUR ---
RESIDENT ROUNDING PERFORMED No neuro complaints from patient during rounds. Received orders for recheck BMP now.
--- NOTE | 2023-07-31 18:20 | NUR ---
Patient had Intake of 1118 ml and output of 1525 ml on this shift.
[2023-07-31 19:35] VITALS: BP 101/67; PULSE 84; RESP 16; TEMP 97.5; O2SAT 95
[2023-07-31 19:44] VITALS: PULSE 94; RESP 16; O2SAT 94
[2023-07-31 21:49] LABS: ALBUMIN 3.8 G/DL (3.4-5.0); ANION GAP 9 (8-16); BLOOD UREA NITROGEN 10 MG/DL (7-18); BUN/CREATININE RATIO 9.5 (10.0-20.0); CALCIUM 8.6 MG/DL (8.5-10.1); CHLORIDE 102 MMOL/L (99-107); CREATININE 1.05 MG/DL (0.60-1.10); GLUCOSE 158 MG/DL (70-104); POTASSIUM 3.9 MMOL/L (3.5-5.1); SODIUM 136 MMOL/L (135-145); TOTAL CARBON DIOXIDE 24.9 MMOL/L (24-32); eCRCL 88 ML/MIN; eGFR 79 ML/MIN
--- NOTE | 2023-07-31 23:54 | NUR ---
Nursing Progress Note: Problem : Pt admitted to [place] for Behavioral health today on 5150 for gravely disabled from our ER. Pt was evicted from his board and care. Pt has severe thought disorder that impacts his ability to make a plan to meet his needs. Pt has history of cerebral palsy, asthma, COPD , schizophrenia. Interventions : Maintained a safe and supportive environment, ensured contract for safety, provided clear and simple instructions, provided education on handwashing r/t positive MRSA nasal swab, and maintained Q 15min safety checks. Response : Patient pleasant and cooperative with care; compliant with care. Patient denied SI, HI, A/VH; no apparent delusions expressed. He presented fatigued and answered MH questions minimally. Patient remains on fluid restriction. Sodium result 136 (WNL) ~ 2100. Patient was provided HS snack and promptly returned to bed; does not appear to be having difficulty sleeping. Plan : Pt. requires interruption of current crisis, medication adjustments, and a safe and supportive environment.
[2023-08-01] MEDS: Tiotropium Br/Olodaterol HCl (Stiolto Respimat Inhal Spray) IH SCH (07:47)
[2023-08-01 07:49] VITALS: PULSE 104; RESP 16; O2SAT 98
[2023-08-01 07:52] VITALS: PULSE 104; RESP 16
[2023-08-01 08:00] VITALS: BP 97/61; PULSE 85; RESP 12; TEMP 97.3; O2SAT 98
[2023-08-01] MEDS: propranolol 10mg tablet PO SCH ×3 (08:00→20:50)
[2023-08-01] MEDS: propranolol 40mg tablet PO SCH ×3 (08:00→20:50)
[2023-08-01] MEDS: polyethylene glycol 3350 17gm powd pack PO SCH (08:27)
[2023-08-01] MEDS: chlorhexidine gluconate 15ml Cup****oral rinse MM SCH ×2 (08:27→20:49)
[2023-08-01] MEDS: haloperidol 5mg tablet PO SCH ×3 (08:29→20:46)
[2023-08-01] MEDS: clozapine 25mg tablet PO SCH ×3 (08:29→20:47)
[2023-08-01] MEDS: clozapine 100mg tablet PO SCH ×3 (08:29→20:47)
[2023-08-01] MEDS: cholecalciferol (vitamin D3) 1,000 unit (25mcg) tablet PO SCH (08:29)
[2023-08-01] MEDS: benztropine 1mg tablet PO SCH ×2 (08:29→20:48)
[2023-08-01] MEDS: LORazepam 1 MG tablet PO SCH ×3 (08:30→17:09)
[2023-08-01] MEDS: pantoprazole 40mg Tablet.DR PO SCH (08:30)
[2023-08-01] MEDS: docusate sod 100mg capsule PO SCH ×2 (08:30→20:46)
[2023-08-01] MEDS: calcium carbonate 500mg tablet PO SCH ×3 (08:30→20:47)
[2023-08-01] MEDS: NICOTINE POLACRILEX 2 MG LOZENGE BC PRN ×4 (08:57→22:45)
[2023-08-01 14:36] LABS: ALBUMIN 4.5 G/DL (3.4-5.0); BLOOD UREA NITROGEN 11 MG/DL (7-18); BUN/CREATININE RATIO 9.6 (10.0-20.0); CALCIUM 9.3 MG/DL (8.5-10.1); CREATININE 1.14 MG/DL (0.60-1.10); GLUCOSE 132 MG/DL (70-104); SODIUM 133 MMOL/L (135-145); TOTAL CARBON DIOXIDE 24.5 MMOL/L (24-32); eCRCL 81 ML/MIN; eGFR 72 ML/MIN
[2023-08-01 14:41] LABS: ANION GAP 11 (8-16); CHLORIDE 98 MMOL/L (99-107)
--- NOTE | 2023-08-01 16:37 | NUR ---
Nursing Progress Note: Problem: Pt admitted to [place] for [facility] health today on 5150 for gravely disabled from our ER. Pt was evicted from his board and care. Pt has severe thought disorder that impacts his ability to make a plan to meet his needs. Pt has history of cerebral palsy, asthma, COPD, schizophrenia. Interventions: Maintained a safe and supportive environment, ensured contract for safety, provided clear and simple instructions, provided education on handwashing r/t positive MRSA nasal swab, and maintained Q 15min safety checks. Response: Pt. was up for vitals and breakfast. He took meds without complications. Cont. on fluid restriction, Sodium result 133 (WNL) @ 1000. Pt. is up and down throughout the day pacing the unit and listening to music. He does not sit still for very long. Asked him how he was doing, he said Good. Asked him about VH he states, None. Asked him about AH, he states, I hear Karl Lujan from [employer]. Asked if they were command AH, he said, No, he wants me to be his because we are related. Asked about DC planning, he said, Karl wants me to meet him at [facility] because I am [facility] then walked away. He cannot focus on long conversations due to being internally preoccupied. -Appearance: casually groomed in green scrubs, slightly overweight with short (buzzed) brown hair. -Eye contact: fair -Mood: calm -Affect: flat -Speech: mumbles and rapid -Thought Process: impaired -Thought content: delusional -A/V/H: denies VH, AH present -SI/HI: denies -ADLs: independent with little prompting -Insight: none -Judgement: poor Plan: Pt. needs further stabilization in a structured and safe environment. He is currently on LPS conservatorship, due to current symptoms and delusions, if discharged out in the community he would be a high risk for safety and re-hospitalization.
[2023-08-01 19:30] VITALS: BP 97/56; PULSE 87; RESP 14; TEMP 98.7; O2SAT 97
[2023-08-01 19:57] VITALS: PULSE 80; RESP 16; O2SAT 94
--- NOTE | 2023-08-02 05:14 | NUR ---
Nursing Progress Note: Problem: Pt admitted to [facility] today on 5150 for gravely disabled from our ER. Pt was evicted from his board and care. Pt has severe thought disorder that impacts his ability to make a plan to meet his needs. Pt has history of cerebral palsy, asthma, COPD, schizophrenia. Interventions: Maintained a safe and supportive environment, ensured contract for safety, provided clear and simple instructions, provided education on handwashing r/t positive MRSA nasal swab, and maintained Q 15min safety checks. Response: Pt was up in day room with rest of peers watching TV at the beginning of shift. He spends time around peers though he does not engage in conversation with them often. He is withdrawn and quiet during assessment and when he speaks he mumbles. Before assessment pt was sleeping and was difficult to arouse out of his slumber. Pt denies AVH/SI/HI and is compliant with all of his medications and agreeable to treatment. Pt woke up late in the night and asked for a nicotine lozenge but was right back in his room with no complaints after. Plan: Pt. needs further stabilization in a structured and safe environment. He is currently on LPS conservatorship, due to current symptoms and delusions, if discharged out in the community he would be a high risk for safety and re-hospitalization.
[2023-08-02] MEDS: NICOTINE POLACRILEX 2 MG LOZENGE BC PRN ×4 (06:22→17:12)
[2023-08-02] MEDS: Tiotropium Br/Olodaterol HCl (Stiolto Respimat Inhal Spray) IH SCH (07:08)
[2023-08-02 07:11] VITALS: PULSE 111; RESP 16; O2SAT 98
[2023-08-02 07:12] VITALS: PULSE 110; RESP 16
[2023-08-02 08:00] VITALS: BP 105/81; PULSE 102; RESP 16; TEMP 98.3; O2SAT 97
[2023-08-02] MEDS: propranolol 10mg tablet PO SCH ×3 (08:07→20:54)
[2023-08-02] MEDS: propranolol 40mg tablet PO SCH ×3 (08:07→20:54)
[2023-08-02] MEDS: cholecalciferol (vitamin D3) 1,000 unit (25mcg) tablet PO SCH (08:08)
[2023-08-02] MEDS: haloperidol 5mg tablet PO SCH ×3 (08:08→20:51)
[2023-08-02] MEDS: docusate sod 100mg capsule PO SCH ×2 (08:08→20:53)
[2023-08-02] MEDS: clozapine 25mg tablet PO SCH ×3 (08:08→20:52)
[2023-08-02] MEDS: polyethylene glycol 3350 17gm powd pack PO SCH (08:08)
[2023-08-02] MEDS: chlorhexidine gluconate 15ml Cup****oral rinse MM SCH ×2 (08:08→20:56)
[2023-08-02] MEDS: benztropine 1mg tablet PO SCH ×2 (08:08→20:53)
[2023-08-02] MEDS: calcium carbonate 500mg tablet PO SCH ×3 (08:08→20:53)
[2023-08-02] MEDS: pantoprazole 40mg Tablet.DR PO SCH (08:08)
[2023-08-02] MEDS: clozapine 100mg tablet PO SCH ×3 (08:08→20:52)
[2023-08-02] MEDS: LORazepam 1 MG tablet PO SCH ×3 (08:08→17:08)
[2023-08-02 09:59] LABS: ALBUMIN 3.7 G/DL (3.4-5.0); ANION GAP 10 (8-16); BLOOD UREA NITROGEN 13 MG/DL (7-18); BUN/CREATININE RATIO 11.3 (10.0-20.0); CALCIUM 8.7 MG/DL (8.5-10.1); CHLORIDE 101 MMOL/L (99-107); CREATININE 1.15 MG/DL (0.60-1.10); GLUCOSE 138 MG/DL (70-104); POTASSIUM 3.9 MMOL/L (3.5-5.1); SODIUM 136 MMOL/L (135-145); eCRCL 81 ML/MIN; eGFR 71 ML/MIN
--- NOTE | 2023-08-02 16:47 | NUR ---
Nursing Progress Note: Problem: Pt admitted to [facility] for [facility] today on 5150 for gravely disabled from our ER. Pt was evicted from his board and care. Pt has severe thought disorder that impacts his ability to make a plan to meet his needs. Pt has history of cerebral palsy, asthma, COPD, schizophrenia. Interventions: Maintained a safe and supportive environment, ensured contract for safety, provided clear and simple instructions, provided education on handwashing r/t positive MRSA nasal swab, and maintained Q 15min safety checks. Response: Pt. was up for vitals and breakfast. He took meds without complications. Cont. on fluid restriction, Sodium result 136 (WNL) @ 0959. Pt. is up and down throughout the day pacing the unit and listening to music. He does not sit still for very long. Asked him how he was doing, he said Good. Asked him about VH he states, None. Asked him about AH, he states, Ya. Asked him if it was the same voice as yesterday he states, No. asked if he knew the voices, he said, No I dont know them, theyre just talking to me. Asked him to elaborate on the voices, he stares off for a moment then walked away. His internal stimuli keeps him preoccupied and he is unable to hold a conversation without getting distracted and walking away. He is friendly, cooperative within the milieu to the best of his ability. No noted/reported behavioral issues. -Appearance: casually groomed in green scrubs, slightly overweight with short (buzzed) brown hair. -Eye contact: fair -Mood: calm -Affect: flat -Speech: mumbles and rapid -Thought Process: impaired -Thought content: delusional -A/V/H: denies VH, AH present -SI/HI: denies -ADLs: independent with little prompting -Insight: none -Judgement: poor Plan: Pt. needs further stabilization in a structured and safe environment. Due to current symptoms and delusions, if discharged out in the community he would be a high risk for safety and re-hospitalization. He is currently on LPS conservatorship, awaiting placement.
[2023-08-02 19:30] VITALS: BP 126/93; PULSE 87; RESP 16; TEMP 97.5; O2SAT 98
[2023-08-02 19:36] VITALS: PULSE 83; RESP 16; O2SAT 95
[2023-08-03] MEDS: NICOTINE POLACRILEX 2 MG LOZENGE BC PRN ×4 (04:11→17:19)
--- NOTE | 2023-08-03 05:16 | NUR ---
Nursing Progress Note: Problem: Pt admitted to [facility] for [facility] health today on 5150 for gravely disabled from our ER. Pt was evicted from his board and care. Pt has severe thought disorder that impacts his ability to make a plan to meet his needs. Pt has history of cerebral palsy, asthma, COPD, schizophrenia. Interventions: Maintained a safe and supportive environment, ensured contract for safety, provided clear and simple instructions, provided education on handwashing r/t positive MRSA nasal swab, and maintained Q 15min safety checks. Response: Pt was up in day room with rest of peers watching TV at the beginning of shift. He spends time around peers though he does not engage in conversation with them often. He is withdrawn and quiet during assessment, only answering with one or two word answers. When he speaks he mumbles. On assessment pt denies AVH/SI/HI and is compliant with all of his medications and agreeable to treatment. Pt is compliant with fluid restrictions and helpful to make sure and show his void in the urinal to RN before flushing it. Plan: Pt. needs further stabilization in a structured and safe environment. He is currently on LPS conservatorship, due to current symptoms and delusions, if discharged out in the community he would be a high risk for safety and re-hospitalization.
[2023-08-03 08:00] VITALS: BP 122/87; PULSE 84; RESP 16; TEMP 98; O2SAT 98
[2023-08-03 08:07] VITALS: PULSE 97; RESP 17; O2SAT 95
[2023-08-03] MEDS: Tiotropium Br/Olodaterol HCl (Stiolto Respimat Inhal Spray) IH SCH (08:07)
[2023-08-03 08:12] VITALS: PULSE 97; RESP 17
[2023-08-03] MEDS: LORazepam 1 MG tablet PO SCH ×3 (08:14→18:40)
[2023-08-03] MEDS: cholecalciferol (vitamin D3) 1,000 unit (25mcg) tablet PO SCH (08:14)
[2023-08-03] MEDS: docusate sod 100mg capsule PO SCH ×2 (08:15→21:13)
[2023-08-03] MEDS: benztropine 1mg tablet PO SCH ×2 (08:15→21:09)
[2023-08-03] MEDS: propranolol 40mg tablet PO SCH ×3 (08:15→19:32)
[2023-08-03] MEDS: clozapine 25mg tablet PO SCH ×3 (08:15→21:12)
[2023-08-03] MEDS: clozapine 100mg tablet PO SCH ×3 (08:16→21:12)
[2023-08-03] MEDS: haloperidol 5mg tablet PO SCH ×3 (08:17→21:13)
[2023-08-03] MEDS: propranolol 10mg tablet PO SCH ×3 (08:17→19:31)
[2023-08-03] MEDS: calcium carbonate 500mg tablet PO SCH ×3 (08:17→21:13)
[2023-08-03] MEDS: pantoprazole 40mg Tablet.DR PO SCH (08:17)
[2023-08-03] MEDS: chlorhexidine gluconate 15ml Cup****oral rinse MM SCH ×2 (08:18→21:08)
[2023-08-03] MEDS: polyethylene glycol 3350 17gm powd pack PO SCH (08:18)
--- NOTE | 2023-08-03 16:33 | NUR ---
Nursing Progress Note: Problem: Pt admitted to [facility] for [facility] today on 5150 for gravely disabled from our ER. Pt was evicted from his board and care. Pt has severe thought disorder that impacts his ability to make a plan to meet his needs. Pt has history of cerebral palsy, asthma, COPD, schizophrenia. Interventions: Maintained a safe and supportive environment, ensured contract for safety, provided clear and simple instructions, provided education on handwashing r/t positive MRSA nasal swab, and maintained Q 15min safety checks. Response: Patient was observed pacing unit listening to headphones at beginning of shift. Patient took all morning medication without issue and requested a prn nicotine lozenge. Patient continued to pace unit and sleep. Patient was cooperative with his fluid restriction and had 1100 output this shift. Patient continued to ask for nicotine lozenges and was seen sitting in community room watching tv. Patient did requested prn Ativan x2 for aniexty. Plan: Pt. needs further stabilization in a structured and safe environment. He is currently on LPS conservatorship, due to current symptoms and delusions, if discharged out in the community he would be a high risk for safety and re-hospitalization.
[2023-08-03 19:30] VITALS: BP 95/58; PULSE 85; RESP 14; TEMP 97.5; O2SAT 93
[2023-08-03 19:35] VITALS: PULSE 85; RESP 16; O2SAT 94
[2023-08-03] MEDS ORDERED: clozapine 100mg tablet PO SCH (20:00)
[2023-08-03] MEDS: magnesium hydroxide 30ml (MOM) UD suspension PO PRN (21:05)
--- NOTE | 2023-08-04 04:41 | NUR ---
Nursing Progress Note: Problem: Pt admitted to [facility] for [facility] health today on 5150 for gravely disabled from our ER. Pt was evicted from his board and care. Pt has severe thought disorder that impacts his ability to make a plan to meet his needs. Pt has history of cerebral palsy, asthma, COPD, schizophrenia. Interventions: Maintained a safe and supportive environment, ensured contract for safety, provided clear and simple instructions, provided education on handwashing r/t positive MRSA nasal swab, and maintained Q 15min safety checks. Response: Pt was in his room most of the waking hours of shift and slept. Pt was difficult to arouse from sleep for assessment and med pass. Pt stated that he did not have a BM today and said he felt constipated, so M.O.M. was given. No word on pt having a BM yet, however pt has been sleeping all night. Pt is compliant with using urinal and his fluid restriction. Pt denies SI/HI but states that he is having VAH. When asked what he sees he states it all depends on what they want me to see. When asked who they is, he states Are. Seeing us right now they are in aww at this conversation. When asked what he hears he states that we got to get back together the people, my friends. Pt had no complaints during the shift. Plan: Pt. needs further stabilization in a structured and safe environment. He is currently on LPS conservatorship, due to current symptoms and delusions, if discharged out in the community he would be a high risk for safety and re-hospitalization.
[2023-08-04] MEDS: NICOTINE POLACRILEX 2 MG LOZENGE BC PRN ×4 (06:18→18:02)
[2023-08-04] MEDS: chlorhexidine gluconate 15ml Cup****oral rinse MM SCH ×2 (07:24→20:00)
[2023-08-04] MEDS: benztropine 1mg tablet PO SCH ×2 (07:25→20:00)
[2023-08-04] MEDS: docusate sod 100mg capsule PO SCH ×2 (07:25→21:40)
[2023-08-04] MEDS: polyethylene glycol 3350 17gm powd pack PO SCH (07:25)
[2023-08-04] MEDS: propranolol 10mg tablet PO SCH ×3 (07:25→21:36)
[2023-08-04] MEDS: clozapine 100mg tablet PO SCH ×2 (07:26→21:35)
[2023-08-04] MEDS: propranolol 40mg tablet PO SCH ×3 (07:27→21:35)
[2023-08-04] MEDS: cholecalciferol (vitamin D3) 1,000 unit (25mcg) tablet PO SCH (07:27)
[2023-08-04] MEDS: calcium carbonate 500mg tablet PO SCH ×3 (07:27→21:36)
[2023-08-04] MEDS: haloperidol 5mg tablet PO SCH ×3 (07:27→21:37)
[2023-08-04] MEDS: LORazepam 1 MG tablet PO SCH ×3 (07:27→17:16)
[2023-08-04] MEDS: pantoprazole 40mg Tablet.DR PO SCH (07:27)
[2023-08-04] MEDS: clozapine 25mg tablet PO SCH ×2 (07:35→21:35)
[2023-08-04 08:00] VITALS: BP 103/71; PULSE 105; RESP 16; TEMP 98.9; O2SAT 99
[2023-08-04] MEDS: Tiotropium Br/Olodaterol HCl (Stiolto Respimat Inhal Spray) IH SCH ×2 (08:00→08:17)
[2023-08-04 08:24] VITALS: PULSE 86; RESP 18; O2SAT 97
--- NOTE | 2023-08-04 08:29 | NUR ---
Received notification from RT that Stiolto inhaler is empty; this is a home med. Pt refuses nebulizer treatments. Will let provider know.
--- NOTE | 2023-08-04 16:52 | NUR ---
Nursing Progress Note: Problem: Pt admitted to [facility] for [facility] health today on 5150 for gravely disabled from our ER. Pt was evicted from his board and care. Pt has severe thought disorder that impacts his ability to make a plan to meet his needs. Pt has history of cerebral palsy, asthma, COPD, schizophrenia. Interventions: Maintained a safe and supportive environment, ensured contract for safety, provided clear and simple instructions, provided education on handwashing r/t positive MRSA nasal swab, and maintained Q 15min safety checks. Response: Pt. was up for vitals and breakfast. He took meds without complications. Cont. on fluid restriction, Sodium result. Pt. is up and down throughout the day pacing the unit and listening to music. Asked him how he was doing, he stated, Good. Asked him about SI/HI, both of which he denies. Asked about AH, he said Yes. Asked him to elaborate he said, They just talk to me. Asked if they are command he said No. Asked about VH, he said, Sometimes I see an [place]. His responses are delayed at time, he is internally preoccupied, but friendly and cooperative with care. He has had no noted/reported behavioral issues. -Appearance: casually groomed in green scrubs, slightly overweight with short (buzzed) brown hair. -Eye contact: fair -Mood: calm -Affect: flat -Speech: mumbles, delayed in response -Thought Process: impaired -Thought content: delusional -A/V/H: VH/AH present -SI/HI: denies -ADLs: independent with little prompting -Insight: none -Judgement: poor Plan: Pt. needs further stabilization in a structured and safe environment. Due to current symptoms, if discharged out in the community he would be a high risk for safety and re-hospitalization. He is currently on LPS conservatorship, awaiting placement.
[2023-08-04] MEDS ORDERED: magnesium citrate 296ml oral solution PO ONE (16:55)
[2023-08-04 19:00] VITALS: RESP 17; O2SAT 89
[2023-08-04 19:56] VITALS: BP 108/56; PULSE 89; RESP 17; TEMP 98.8; O2SAT 93
[2023-08-04 20:04] VITALS: PULSE 82; RESP 16; O2SAT 93
[2023-08-05] MEDS: NICOTINE POLACRILEX 2 MG LOZENGE BC PRN ×4 (02:45→16:35)
--- NOTE | 2023-08-05 03:40 | NUR ---
Nursing Progress Note: Problem: Pt admitted to [facility] for [facility] health today on 5150 for gravely disabled from our ER. Pt was evicted from his board and care. Pt has severe thought disorder that impacts his ability to make a plan to meet his needs. Pt has history of cerebral palsy, asthma, COPD, schizophrenia. Interventions: Maintained a safe and supportive environment, ensured contract for safety, provided clear and simple instructions, provided education on handwashing r/t positive MRSA nasal swab, and maintained Q 15min safety checks. Response: Pt. sleeping in bed at start of shift. Per tech he was difficult to wake up for VS but his VS were WNL. He was also difficult to wake up to take medications. A check of HR and O2 sats were WNL. He did wake up take his meds. He got up and walked in halls briefly. Pt speech is very soft and he mumbles which makes it hard to understand him at times. He denies Depression or SI. He did not answer when asked about A/V/H. After a brief time awake pt went back to sleep and is sleeping at this time. Plan: Pt. needs further stabilization in a structured and safe environment. Due to current symptoms, if discharged out in the community he would be a high risk for safety and re-hospitalization. He is currently on LPS conservatorship, awaiting placement.
[2023-08-05] MEDS: magnesium hydroxide 30ml (MOM) UD suspension PO PRN (04:54)
--- NOTE | 2023-08-05 04:54 | NUR ---
MOM and 2 Prune juices given. Pt had Mag Citrate on dayshift. He reported soft formed BM but said he still needed something for constipation.
[2023-08-05 07:00] VITALS: RESP 18; O2SAT 96
[2023-08-05] MEDS: haloperidol 5mg tablet PO SCH ×3 (07:20→20:10)
[2023-08-05] MEDS: LORazepam 1 MG tablet PO SCH ×3 (07:20→17:11)
[2023-08-05] MEDS: polyethylene glycol 3350 17gm powd pack PO SCH (07:20)
[2023-08-05] MEDS: chlorhexidine gluconate 15ml Cup****oral rinse MM SCH ×2 (07:20→20:13)
[2023-08-05] MEDS: clozapine 100mg tablet PO SCH ×2 (07:20→20:11)
[2023-08-05] MEDS: cholecalciferol (vitamin D3) 1,000 unit (25mcg) tablet PO SCH (07:20)
[2023-08-05] MEDS: propranolol 10mg tablet PO SCH ×3 (07:21→20:09)
[2023-08-05] MEDS: calcium carbonate 500mg tablet PO SCH ×3 (07:21→20:10)
[2023-08-05] MEDS: propranolol 40mg tablet PO SCH ×3 (07:21→20:10)
[2023-08-05] MEDS: pantoprazole 40mg Tablet.DR PO SCH (07:21)
[2023-08-05] MEDS: clozapine 25mg tablet PO SCH ×2 (07:21→20:12)
[2023-08-05] MEDS: benztropine 1mg tablet PO SCH ×2 (07:21→20:10)
[2023-08-05] MEDS: docusate sod 100mg capsule PO SCH ×2 (07:22→20:09)
[2023-08-05 08:00] VITALS: BP 136/95; PULSE 88; RESP 18; TEMP 97.2; O2SAT 96
[2023-08-05] MEDS: Tiotropium Br/Olodaterol HCl (Stiolto Respimat Inhal Spray) IH SCH (08:00)
[2023-08-05] MEDS: albuterol 2.5 MG/3 ML nebule NEB PRN (10:15)
[2023-08-05 10:17] VITALS: PULSE 95; PULSE 96; RESP 17; RESP 18; O2SAT 98
--- NOTE | 2023-08-05 16:38 | NUR ---
Nursing Progress Note: Greg Problem: Pt admitted to [facility] for [facility] health today on 5150 for gravely disabled from our ER. Pt was evicted from his board and care. Pt has severe thought disorder that impacts his ability to make a plan to meet his needs. Pt has history of cerebral palsy, asthma, COPD, schizophrenia. Interventions: Maintained a safe and supportive environment, ensured contract for safety, provided clear and simple instructions, provided education on handwashing r/t positive MRSA nasal swab, and maintained Q 15min safety checks. Response: Pt. was up for vitals and breakfast. He took meds without complications. Fluid restriction has been DCd. Pt. has had no changes in behaviors. Denies SI/HI. Cont. to experience AH, states they are not command, they just talk to me. Asked about V/H, he states, Sometimes I see people. Asked what the people look like, are they familiar people, he just stared at me, then walked away. He reported a small, hard BM, cont. to feel constipated, prune juice give, will cont. to monitor effectiveness. He is friendly and cooperative with care, no noted/reported behavioral issues. -Appearance: casually groomed in green scrubs, slightly overweight with short (buzzed) brown hair. -Eye contact: fair -Mood: calm -Affect: flat -Speech: mumbles, delayed in response -Thought Process: impaired -Thought content: delusional -A/V/H: VH/AH present -SI/HI: denies -ADLs: independent with little prompting -Insight: none -Judgement: poor Plan: Pt. needs further stabilization in a structured and safe environment. Due to current symptoms, if discharged out in the community he would be a high risk for safety and re-hospitalization. He is currently on LPS conservatorship, awaiting placement.
[2023-08-05 19:00] VITALS: RESP 16; O2SAT 96
[2023-08-05 20:00] VITALS: BP 105/58; PULSE 84; RESP 16; TEMP 97.3; O2SAT 96
[2023-08-05 23:19] VITALS: PULSE 80; RESP 16; O2SAT 92
--- NOTE | 2023-08-06 03:35 | NUR ---
Nursing Progress Note: Greg Problem: Pt admitted to [facility] for [facility] health today on 5150 for gravely disabled from our ER. Pt was evicted from his board and care. Pt has severe thought disorder that impacts his ability to make a plan to meet his needs. Pt has history of cerebral palsy, asthma, COPD, schizophrenia. Interventions: Maintained a safe and supportive environment, ensured contract for safety, provided clear and simple instructions, provided education on handwashing r/t positive MRSA nasal swab, and maintained Q 15min safety checks. Response: This nurse resumed care for patient at 1830. Patient observed in bed lying on right side. Patient was woken up with a bloody nose. This nurse had patient get up to clean nose and take HS meds. Patient remained quiet like always. Patient remained in bed for rest of night. Plan: Pt. needs further stabilization in a structured and safe environment. Due to current symptoms, if discharged out in the community he would be a high risk for safety and re-hospitalization. He is currently on LPS conservatorship, awaiting placement.
[2023-08-06] MEDS: NICOTINE POLACRILEX 2 MG LOZENGE BC PRN ×4 (05:20→18:57)
[2023-08-06 07:00] VITALS: RESP 16; O2SAT 99
[2023-08-06] MEDS: haloperidol 5mg tablet PO SCH ×3 (07:13→20:20)
[2023-08-06] MEDS: benztropine 1mg tablet PO SCH ×2 (07:13→20:17)
[2023-08-06] MEDS: docusate sod 100mg capsule PO SCH ×2 (07:13→20:18)
[2023-08-06] MEDS: clozapine 25mg tablet PO SCH ×2 (07:14→20:17)
[2023-08-06] MEDS: propranolol 10mg tablet PO SCH ×3 (07:14→20:17)
[2023-08-06] MEDS: propranolol 40mg tablet PO SCH ×3 (07:14→20:17)
[2023-08-06] MEDS: clozapine 100mg tablet PO SCH ×2 (07:14→20:16)
[2023-08-06] MEDS: cholecalciferol (vitamin D3) 1,000 unit (25mcg) tablet PO SCH (07:15)
[2023-08-06] MEDS: polyethylene glycol 3350 17gm powd pack PO SCH (07:15)
[2023-08-06] MEDS: chlorhexidine gluconate 15ml Cup****oral rinse MM SCH ×2 (07:15→20:15)
[2023-08-06] MEDS: pantoprazole 40mg Tablet.DR PO SCH (07:15)
[2023-08-06] MEDS: calcium carbonate 500mg tablet PO SCH ×3 (07:15→20:22)
[2023-08-06] MEDS: LORazepam 1 MG tablet PO SCH ×3 (07:15→17:03)
[2023-08-06 08:00] VITALS: BP 118/86; PULSE 76; RESP 16; TEMP 97.9; O2SAT 99
[2023-08-06] MEDS: Tiotropium Br/Olodaterol HCl (Stiolto Respimat Inhal Spray) IH SCH (08:00)
--- NOTE | 2023-08-06 15:46 | NUR ---
Nursing Progress Note: Problem: Pt admitted to [facility] for [facility] health today on 5150 for gravely disabled from our ER. Pt was evicted from his board and care. Pt has severe thought disorder that impacts his ability to make a plan to meet his needs. Pt has history of cerebral palsy, asthma, COPD, schizophrenia. Interventions: Maintained a safe and supportive environment, ensured contract for safety, provided clear and simple instructions, provided education on handwashing r/t positive MRSA nasal swab, and maintained Q 15min safety checks. Response: Pt. was up for vitals and breakfast. He took meds without complications. There is no change in pt.s behaviors. He is friendly and cooperative to the best of his ability. Asked about A/V/H he said, Voices are quiet today, but I see a lot of weird writing on your paper. I was holding a paper and he pointed to it, then asked Can I see the paper? I showed him and he said There, see it, all the letters. I pointed to sentences on the paper he said No right there and pointed at all different spots on the paper. He listened to music today, watched some TV, paced the unit and laid in bed. No noted issues. -Appearance: casually groomed in green scrubs, slightly overweight with short (buzzed) brown hair. -Eye contact: fair -Mood: calm -Affect: flat -Speech: mumbles, delayed in response, rapid speech -Thought Process: impaired -Thought content: delusional -A/V/H: VH/AH present -SI/HI: denies -ADLs: independent with little prompting -Insight: none -Judgement: poor Plan: Pt. needs further stabilization in a structured and safe environment. Due to current symptoms, if discharged out in the community he would be a high risk for safety and re-hospitalization. He is currently on LPS conservatorship, awaiting placement.
[2023-08-06 19:00] VITALS: RESP 18; O2SAT 99
[2023-08-06 20:00] VITALS: BP 113/84; PULSE 81; RESP 18; TEMP 98.1; O2SAT 99
[2023-08-06 20:13] VITALS: PULSE 77; RESP 18; O2SAT 96
[2023-08-07] VITALS (7 sets, daily range): BP systolic 90–137; BP diastolic 60–90; PULSE 75–95; RESP 16; TEMP 97.1–98.8; O2SAT 94–99
--- NOTE | 2023-08-07 03:27 | NUR ---
Nursing Progress Note: Problem: Pt admitted to [facility] for [facility] health today on 5150 for gravely disabled from our ER. Pt was evicted from his board and care. Pt has severe thought disorder that impacts his ability to make a plan to meet his needs. Pt has history of cerebral palsy, asthma, COPD, schizophrenia. Interventions: Maintained a safe and supportive environment, ensured contract for safety, provided clear and simple instructions, provided education on handwashing r/t positive MRSA nasal swab, and maintained Q 15min safety checks. Response: Pt received in the hallway, he is asking for a nicotine lozenge. Pt was given one. Pt then asked for a snack so marine underwriter provided him a small snack. Pt had to be woken up for medication pass. Pt is compliant. Pt had slept though snack break, so he asked for some rigo crackers and milk. Pt is calm and cooperative with care. Pt denies mental health symptoms. Pt is hard to understand, he mumbles at times and talks very softly. No behavioral issues observed. Monitor for safety. Plan: Pt. needs further stabilization in a structured and safe environment. Due to current symptoms, if discharged out in the community he would be a high risk for safety and re-hospitalization. He is currently on LPS conservatorship, awaiting placement.
[2023-08-07] MEDS: NICOTINE POLACRILEX 2 MG LOZENGE BC PRN ×4 (05:26→18:58)
[2023-08-07] MEDS: Tiotropium Br/Olodaterol HCl (Stiolto Respimat Inhal Spray) IH SCH (07:50)
[2023-08-07] MEDS: chlorhexidine gluconate 15ml Cup****oral rinse MM SCH ×2 (07:55→20:02)
[2023-08-07] MEDS: LORazepam 1 MG tablet PO SCH ×3 (07:55→17:47)
[2023-08-07] MEDS: clozapine 25mg tablet PO SCH ×2 (07:55→20:03)
[2023-08-07] MEDS: docusate sod 100mg capsule PO SCH ×2 (07:56→20:02)
[2023-08-07] MEDS: benztropine 1mg tablet PO SCH ×2 (07:56→20:03)
[2023-08-07] MEDS: haloperidol 5mg tablet PO SCH ×3 (07:56→20:03)
[2023-08-07] MEDS: clozapine 100mg tablet PO SCH ×2 (07:56→20:03)
[2023-08-07] MEDS: propranolol 40mg tablet PO SCH ×3 (07:57→20:56)
[2023-08-07] MEDS: pantoprazole 40mg Tablet.DR PO SCH (07:57)
[2023-08-07] MEDS: propranolol 10mg tablet PO SCH ×3 (07:57→20:56)
[2023-08-07] MEDS: calcium carbonate 500mg tablet PO SCH ×3 (07:57→20:03)
[2023-08-07] MEDS: polyethylene glycol 3350 17gm powd pack PO SCH (07:57)
[2023-08-07] MEDS: cholecalciferol (vitamin D3) 1,000 unit (25mcg) tablet PO SCH (07:58)
--- NOTE | 2023-08-07 13:48 | NUR ---
Nursing Progress Note: Problem : Pt admitted to [facility] for [facility] health today on 5150 for gravely disabled from our ER. Pt was evicted from his board and care. Pt has severe thought disorder that impacts his ability to make a plan to meet his needs. Pt has history of cerebral palsy, asthma, COPD , schizophrenia. Interventions : Maintained a safe and supportive, provided a safe and supportive environment, ensured contract for safety, provided clear and simple instructions, attempted to orient to reality, provided education on handwashing r/t positive MRSA nasal swab, and maintained Q 15min safety checks. Response : Received pt. sleeping in bed at the beginning of the shit, he awoke prior to breakfast and was observed to be pacing the hallway wearing headphones in a somewhat restless manner. Pt. approached the nurses's station at intervals and stared blankly at staff, he also makes frequent requests for various liquids requiring some redirection with effectiveness. After breakfast, pt. approached this commercial loan underwriter and mumbled in a disorganized manner, "What do you do?" Upon clarification by this commercial loan underwriter, pt. was able to state clearly, "When are you due?" (referring to this commercial loan underwriter's ). This commercial loan underwriter answered pt. and he continued on in a disorganized manner to state, "It's a lion, girl's are huntress." Pt. then continued to on to mumble something about a "Sidewalk," before walking away. Pt. remained up pacing aimlessly at intervals during the morning. After lunch, he retreated to his room for a nap and 1:1 was completed at bedside. Pt. reports A/MOSLEY and upon further questioning states "They tell me not to do that," he was unable to elaborate on this. Pt. also reported what appeared to be a paranoid delusion that the "Material Requirements Planning Manager," want to hurt him. Plan : Pt. continues to require a safe and supportive environment.
[2023-08-08] VITALS (8 sets, daily range): BP systolic 89–130; BP diastolic 62–87; PULSE 87–110; RESP 16–18; TEMP 96.4–98.8; O2SAT 93–100
--- NOTE | 2023-08-08 03:12 | NUR ---
Nursing Progress Note: Greg Problem: Pt admitted to [facility] for Behavioral health today on 5150 for gravely disabled from our ER. Pt was evicted from his board and care. Pt has severe thought disorder that impacts his ability to make a plan to meet his needs. Pt has history of cerebral palsy, asthma, COPD, schizophrenia. Interventions: Maintained a safe and supportive environment, ensured contract for safety, provided clear and simple instructions, provided education on handwashing r/t positive MRSA nasal swab, and maintained Q 15min safety checks. Response: Pt received in hallway, he is asking for a nicotine lozenge. Pt went to his room to lay down. Silver Wrapper brought lozenge to pt. and found him almost asleep. Pt is disorganized and is difficult to understand due to his mumbling. Pt denies all mental health questions. Pt is seen talking to unseen others. Pt is compliant with medications. Pt is seen wandering aimlessly around the unit, listening to the headphones off and on. Pt is compliant with medications and had a PRN nicotine lozenge. Encourage frequent hand washing. Monitor for safety. Plan: Pt. needs further stabilization in a structured and safe environment. Due to current symptoms, if discharged out in the community he would be a high risk for safety and re-hospitalization. He is currently on LPS conservatorship, awaiting placement.
[2023-08-08] MEDS: NICOTINE POLACRILEX 2 MG LOZENGE BC PRN ×5 (06:38→20:52)
[2023-08-08] MEDS: Tiotropium Br/Olodaterol HCl (Stiolto Respimat Inhal Spray) IH SCH (07:41)
[2023-08-08] MEDS: polyethylene glycol 3350 17gm powd pack PO SCH (08:15)
[2023-08-08] MEDS: clozapine 25mg tablet PO SCH ×2 (08:16→20:49)
[2023-08-08] MEDS: clozapine 100mg tablet PO SCH ×2 (08:16→20:49)
[2023-08-08] MEDS: LORazepam 1 MG tablet PO SCH ×3 (08:16→17:48)
[2023-08-08] MEDS: chlorhexidine gluconate 15ml Cup****oral rinse MM SCH ×2 (08:16→20:48)
[2023-08-08] MEDS: docusate sod 100mg capsule PO SCH ×2 (08:17→20:50)
[2023-08-08] MEDS: calcium carbonate 500mg tablet PO SCH ×3 (08:17→20:52)
[2023-08-08] MEDS: haloperidol 5mg tablet PO SCH ×3 (08:17→20:50)
[2023-08-08] MEDS: benztropine 1mg tablet PO SCH ×2 (08:17→20:49)
[2023-08-08] MEDS: pantoprazole 40mg Tablet.DR PO SCH (08:18)
[2023-08-08] MEDS: cholecalciferol (vitamin D3) 1,000 unit (25mcg) tablet PO SCH (08:18)
[2023-08-08] MEDS: propranolol 10mg tablet PO SCH ×3 (08:20→20:52)
[2023-08-08] MEDS: magnesium hydroxide 30ml (MOM) UD suspension PO PRN (08:20)
--- NOTE | 2023-08-08 08:30 | NUR ---
Pt. had a decreased blood pressure and slightly elevated pulse this AM, this was endorsed to Dr. Scott and pt's blood pressure was rechecked and was WNL. Dr. Scott gave orders to decrease pt's ordered Propranolol to 40mg TID. He also ordered a repeat BMP to monitor pt's sodium level. Will continue to monitor pt. closely.
[2023-08-08 12:14] LABS: ALBUMIN 3.6 G/DL (3.4-5.0); ANION GAP 7 (8-16); BLOOD UREA NITROGEN 13 MG/DL (7-18); BUN/CREATININE RATIO 10.7 (10.0-20.0); CALCIUM 8.4 MG/DL (8.5-10.1); CHLORIDE 97 MMOL/L (99-107); CREATININE 1.21 MG/DL (0.60-1.10); GLUCOSE 112 MG/DL (70-104); POTASSIUM 3.9 MMOL/L (3.5-5.1); SODIUM 131 MMOL/L (135-145); TOTAL CARBON DIOXIDE 26.6 MMOL/L (24-32); eCRCL 77 ML/MIN; eGFR 67 ML/MIN
--- NOTE | 2023-08-08 14:25 | NUR ---
Pt's sodium lab came back again decreased, this was endorsed to Dr. Scott and received order to limit pt's oral intake to 1500mL per 24 hour period. Also received orders for a repeat BMP to be drawn tomorrow morning. This was endorsed to pt. who reports understanding.
--- NOTE | 2023-08-08 15:06 | NUR ---
Reassessment: Pt continues eating well, documented with 100% PO intake of all meals since lunch 07/30 meeting estimated nutrient needs. LBM 08/05 per EMR. Pt receiving routine Colace BID and Miralax daily and received PRN MoM today. No nutrition intervention implemented at this time. Will continue to follow and make recommendations as appropriate. Recommendations: 1. Continue regular diet with a dry tray; no dairy per allergy 2. Continue routine Ca/vitamin D3 supplementation per MD 3. Routine and PRN bowel care 4. Weekly scaled weights Addendum: 08/08/23 at [address] Amended: Links added.
--- NOTE | 2023-08-08 15:32 | NUR ---
Nursing Progress Note: Problem : Pt admitted to [facility] for [facility] health today on 5150 for gravely disabled from our ER. Pt was evicted from his board and care. Pt has severe thought disorder that impacts his ability to make a plan to meet his needs. Pt has history of cerebral palsy, asthma, COPD , schizophrenia. Interventions : Maintained a safe and supportive, provided a safe and supportive environment, ensured contract for safety, provided clear and simple instructions, attempted to orient to reality, provided education on handwashing r/t positive MRSA nasal swab, monitored vital signs and labs and endorsed to Dr. Scott, and maintained Q 15min safety checks. Response : Received pt. sleeping in bed at the beginning of the shit, he again awoke early and was observed to be wandering somewhat aimlessly with a blank stare which is his routine. Pt. continued to do this at intervals throughout much of the shift, but approaches staff at intervals interacting appropriately and is able to make his needs known. Pt. continues to present as somewhat disorganized and when questioned by this resume writer regarding any V/MOSLEY states, "Not drugs or anything like that, weed." When the question regarding V/MOSLEY was repeated by this resume writer, pt. was then able to answer appropriately, "I see rain" (it was indeed raining outside). Pt. endorses ongoing A/MOSLEY, but reports he cannot understand what the voices are saying. He denies any thoughts that others may want to hurt him this shift, but does report being somewhat bothered by an intrusive male peer on the unit. This male peer was able to be redirected away from patient, and pt. reported contentment. Will endorse to Noc shift and continue to monitor closely. Plan : Pt. continues to require a safe and supportive environment.
[2023-08-09] VITALS (7 sets, daily range): BP systolic 124–140; BP diastolic 67–80; PULSE 82–97; RESP 16–18; TEMP 97.9–98.6; O2SAT 92–96
--- NOTE | 2023-08-09 00:58 | NUR ---
Nursing Progress Note: Problem : Pt admitted to [facility] for [facility] health today on 5150 for gravely disabled from our ER. Pt was evicted from his board and care. Pt has severe thought disorder that impacts his ability to make a plan to meet his needs. Pt has history of cerebral palsy, asthma, COPD , schizophrenia. Interventions : Maintained a safe and supportive, provided a safe and supportive environment, ensured contract for safety, provided clear and simple instructions, attempted to orient to reality, provided education on handwashing r/t positive MRSA nasal swab, monitored vital signs and labs and endorsed to Dr. Scott, and maintained Q 15min safety checks. Response : Received pt. laying awake in bed at change of shift. Pt. later observed wearing headphones and pacing the unit. Pt. keeps to himself. He participated in evening snack. Pt. is medication compliant. PRN nicotine lozenge provided this shift. Denies SI/HI. When asked about AH/VH pt states jokingly "I see and hear you" then laughs. Pt. remains on fluid restriction. Pt. is observed and appears sleeping without difficulty. Plan : Pt. continues to require a safe and supportive environment. Addendum: 08/09/23 at 0533 by Tiffanie Estrada LVN total urine output this shift 1900mL
[2023-08-09] MEDS: NICOTINE POLACRILEX 2 MG LOZENGE BC PRN ×2 (07:39→15:34)
[2023-08-09] MEDS: polyethylene glycol 3350 17gm powd pack PO SCH (07:55)
[2023-08-09] MEDS: pantoprazole 40mg Tablet.DR PO SCH (07:55)
[2023-08-09] MEDS: cholecalciferol (vitamin D3) 1,000 unit (25mcg) tablet PO SCH (07:55)
[2023-08-09] MEDS: calcium carbonate 500mg tablet PO SCH ×3 (07:55→20:24)
[2023-08-09] MEDS: propranolol 10mg tablet PO SCH ×3 (07:56→20:24)
[2023-08-09] MEDS: haloperidol 5mg tablet PO SCH ×3 (07:56→20:23)
[2023-08-09] MEDS: docusate sod 100mg capsule PO SCH ×2 (07:56→20:23)
[2023-08-09] MEDS: clozapine 25mg tablet PO SCH ×2 (07:57→20:22)
[2023-08-09] MEDS: chlorhexidine gluconate 15ml Cup****oral rinse MM SCH ×2 (07:57→20:21)
[2023-08-09] MEDS: LORazepam 1 MG tablet PO SCH ×3 (07:57→17:53)
[2023-08-09] MEDS: clozapine 100mg tablet PO SCH ×2 (07:57→20:22)
[2023-08-09] MEDS: benztropine 1mg tablet PO SCH ×2 (07:57→20:23)
[2023-08-09] MEDS: Tiotropium Br/Olodaterol HCl (Stiolto Respimat Inhal Spray) IH SCH (08:00)
[2023-08-09 09:49] LABS: ALBUMIN 3.8 G/DL (3.4-5.0); ANION GAP 7 (8-16); BLOOD UREA NITROGEN 24 MG/DL (7-18); BUN/CREATININE RATIO 22.4 (10.0-20.0); CALCIUM 8.6 MG/DL (8.5-10.1); CHLORIDE 99 MMOL/L (99-107); CREATININE 1.07 MG/DL (0.60-1.10); GLUCOSE 100 MG/DL (70-104); POTASSIUM 4.4 MMOL/L (3.5-5.1); SODIUM 131 MMOL/L (135-145); TOTAL CARBON DIOXIDE 25.1 MMOL/L (24-32); eCRCL 87 ML/MIN; eGFR 77 ML/MIN
--- NOTE | 2023-08-09 09:59 | NUR ---
pT. HOME MED STIOLTO RESPIMAT IS EMPTY-TX NOT GIVEN
[2023-08-09] MEDS: magnesium hydroxide 30ml (MOM) UD suspension PO PRN (14:02)
--- NOTE | 2023-08-09 14:15 | NUR ---
Nursing Progress Note: Problem : Pt admitted to [facility] for [facility] health today on 5150 for gravely disabled from our ER. Pt was evicted from his board and care. Pt has severe thought disorder that impacts his ability to make a plan to meet his needs. Pt has history of cerebral palsy, asthma, COPD , schizophrenia. Interventions : Maintained a safe and supportive, provided a safe and supportive environment, ensured contract for safety, provided clear and simple instructions, attempted to orient to reality, provided education on handwashing r/t positive MRSA nasal swab, monitored vital signs and labs and endorsed to Dr. Scott, and maintained Q 15min safety checks. Response : Received pt. sleeping in bed at the beginning of the shit, he awoke early and was observed to be sitting on the floor in the hallway staring blankly. He did greet this telegraphic typewriter mechanic appropriately when greeted, however pt's speech continues to be mumbled and is difficult to understand at times. Pt. continues to pace the unit somewhat aimlessly at times, but is able to make his needs known. He participated in Group. 1:1 was completed later at bedside, pt. endorses ongoing A/MOSLEY and states, "They are playing their game." When questioned by this telegraphic typewriter mechanic what game this is, he stated, "Chess, they are at the mall." When questioned regarding any V/MOSLEY, pt. stated in a disorganized manner, "Try to catch." He then continued on to talk about seeing aliens that hide in the trees. Pt. continues on a fluid restriction r/t a decreased sodium level. His sodium level was re-drawn today and remains the same as yesterday. Pt. is compliant with the fluid restriction and reports understanding. Will continue to monitor closely. Plan : Pt. continues to require a safe and supportive environment.
--- NOTE | 2023-08-10 01:47 | NUR ---
Nursing Progress Note: Problem : Pt admitted to [facility] for [facility]al health today on 5150 for gravely disabled from our ER. Pt was evicted from his board and care. Pt has severe thought disorder that impacts his ability to make a plan to meet his needs. Pt has history of cerebral palsy, asthma, COPD , schizophrenia. Interventions : Maintained a safe and supportive, provided a safe and supportive environment, ensured contract for safety, provided clear and simple instructions, attempted to orient to reality, provided education on handwashing r/t positive MRSA nasal swab, monitored vital signs and labs and endorsed to Dr. Scott, and maintained Q 15min safety checks. Response: Pt. received in room at change of shift. Pt. isolated to room except to come out for evening snack. Pt. is calm and cooperative. Pt. denies SI/HI/AH/VH. No behaviors noted this shift. He is medication compliant. Pt. remains on a fluid restriction. Observed and appears sleeping without difficulty. Plan : Pt. continues to require a safe and supportive environment. Addendum: 08/10/23 at 0554 by Tiffanie Estrada LVN Oral intake from water pitcher 300mL Total urine output this shift 2,025mL
[2023-08-10 07:00] VITALS: RESP 14; O2SAT 98
[2023-08-10] MEDS: chlorhexidine gluconate 15ml Cup****oral rinse MM SCH ×2 (07:54→21:18)
[2023-08-10] MEDS: LORazepam 1 MG tablet PO SCH ×3 (07:55→17:53)
[2023-08-10] MEDS: haloperidol 5mg tablet PO SCH ×3 (07:55→21:20)
[2023-08-10] MEDS: docusate sod 100mg capsule PO SCH ×2 (07:55→21:20)
[2023-08-10] MEDS: cholecalciferol (vitamin D3) 1,000 unit (25mcg) tablet PO SCH (07:56)
[2023-08-10] MEDS: calcium carbonate 500mg tablet PO SCH ×3 (07:56→21:20)
[2023-08-10] MEDS: benztropine 1mg tablet PO SCH ×2 (07:56→21:19)
[2023-08-10] MEDS: pantoprazole 40mg Tablet.DR PO SCH (07:56)
[2023-08-10] MEDS: polyethylene glycol 3350 17gm powd pack PO SCH (07:57)
[2023-08-10] MEDS: propranolol 10mg tablet PO SCH ×3 (07:57→21:20)
[2023-08-10] MEDS: clozapine 100mg tablet PO SCH ×2 (07:57→21:18)
[2023-08-10] MEDS: clozapine 25mg tablet PO SCH ×2 (07:57→21:19)
[2023-08-10 08:00] VITALS: BP 109/83; PULSE 86; RESP 14; TEMP 97.7; O2SAT 98
[2023-08-10] MEDS: Tiotropium Br/Olodaterol HCl (Stiolto Respimat Inhal Spray) IH SCH (08:00)
[2023-08-10] MEDS: NICOTINE POLACRILEX 2 MG LOZENGE BC PRN ×3 (08:21→16:56)
--- NOTE | 2023-08-10 17:02 | NUR ---
Nursing Progress Note: Greg Problem : Pt admitted to [facility] for [facility] health today on 5150 for gravely disabled from our ER. Pt was evicted from his board and care. Pt has severe thought disorder that impacts his ability to make a plan to meet his needs. Pt has history of cerebral palsy, asthma, COPD , schizophrenia. Interventions : Maintained a safe and supportive, provided a safe and supportive environment, ensured contract for safety, provided clear and simple instructions, attempted to orient to reality, provided education on handwashing r/t positive MRSA nasal swab, monitored vital signs and labs and endorsed to Dr. Scott, and maintained Q 15min safety checks. Response : Received Pt in bed and appeared to be sleeping at the beginning of this shift. He woke and was cooperative with vitals and got up for the day and began to wander halls and asked for a nicotine lozenge which he used throughout the day. Pt pleasant and cooperative and took AM and other timed meds w/o issue. Pt was moved to 327B to accommodate a single female bed. Pt cooperative throughout the day with the one pitcher of water fluid restriction. Pt participates well during assessments which revealed + AHs and some delusional and disorganized thinking. Overall pleasant and patient with getting needs met. Plan : Pt. continues to require a safe and supportive environment.
[2023-08-10 19:00] VITALS: BP 108/67; PULSE 83; RESP 16; TEMP 97.7; O2SAT 98
[2023-08-10 20:09] VITALS: PULSE 92; RESP 16; O2SAT 97
--- NOTE | 2023-08-10 23:20 | NUR ---
Nursing Progress Note: Greg Problem : Pt admitted to [facility] for [facility] health today on 5150 for gravely disabled from our ER. Pt was evicted from his board and care. Pt has severe thought disorder that impacts his ability to make a plan to meet his needs. Pt has history of cerebral palsy, asthma, COPD , schizophrenia. Interventions : Maintained a safe and supportive, provided a safe and supportive environment, ensured contract for safety, provided clear and simple instructions, attempted to orient to reality, provided education on handwashing r/t positive MRSA nasal swab, monitored vital signs and labs and endorsed to Dr. Scott, and maintained Q 15min safety checks. Response :Pt. received sleeping at change of shift. He remained asleep until awaken for night medications. He is medication compliant. Pt. is pleasant and cooperative. Denies SI/HI/AH/VH. Pt. provided with a snack and returned to room and went back to sleep. Observed and appears sleeping without difficulty. Plan : Pt. continues to require a safe and supportive environment.
[2023-08-11] MEDS: NICOTINE POLACRILEX 2 MG LOZENGE BC PRN ×3 (04:25→15:36)
[2023-08-11 07:30] VITALS: RESP 18; O2SAT 97
[2023-08-11] MEDS: Tiotropium Br/Olodaterol HCl (Stiolto Respimat Inhal Spray) IH SCH (07:42)
[2023-08-11 07:43] VITALS: PULSE 93; RESP 16; O2SAT 97
[2023-08-11] MEDS: haloperidol 5mg tablet PO SCH ×3 (07:57→21:30)
[2023-08-11] MEDS: polyethylene glycol 3350 17gm powd pack PO SCH (07:57)
[2023-08-11] MEDS: LORazepam 1 MG tablet PO SCH ×3 (07:57→18:07)
[2023-08-11] MEDS: propranolol 10mg tablet PO SCH ×3 (07:58→21:00)
[2023-08-11] MEDS: cholecalciferol (vitamin D3) 1,000 unit (25mcg) tablet PO SCH (07:58)
[2023-08-11] MEDS: pantoprazole 40mg Tablet.DR PO SCH (07:58)
[2023-08-11] MEDS: calcium carbonate 500mg tablet PO SCH ×3 (07:58→21:28)
[2023-08-11] MEDS: docusate sod 100mg capsule PO SCH ×2 (07:58→21:30)
[2023-08-11] MEDS: clozapine 25mg tablet PO SCH ×2 (07:58→21:28)
[2023-08-11] MEDS: clozapine 100mg tablet PO SCH ×2 (07:58→21:28)
[2023-08-11] MEDS: benztropine 1mg tablet PO SCH ×2 (07:58→21:29)
[2023-08-11 08:00] VITALS: BP 143/102; PULSE 94; RESP 18; TEMP 97.5; O2SAT 97
[2023-08-11] MEDS: chlorhexidine gluconate 15ml Cup****oral rinse MM SCH ×2 (08:01→21:29)
[2023-08-11] MEDS ORDERED: LORazepam 1 MG tablet PO ONE (09:25)
[2023-08-11] MEDS ORDERED: LORazepam 0.5 MG tablet PO ONE (09:40)
--- NOTE | 2023-08-11 18:03 | NUR ---
Nursing Progress Note: Problem : Pt admitted to [facility] for [facility] health today on 5150 for gravely disabled from our ER. Pt was evicted from his board and care. Pt has severe thought disorder that impacts his ability to make a plan to meet his needs. Pt has history of cerebral palsy, asthma, COPD , schizophrenia. Interventions : Maintained a safe and supportive, provided a safe and supportive environment, ensured contract for safety, provided clear and simple instructions, attempted to orient to reality, provided education on handwashing r/t positive MRSA nasal swab, monitored vital signs. Maintained 1500 daily fluid restriction and maintained Q 15min safety checks. Response : Pt. is on 1500ml daily fluid restriction. RN received pt. asleep in bed at start of shift. Pt. awoke for breakfast and took medications. Pt. observed taking a coffee off of the meal cart and pt. reminded hes not allowed to and this seemed to upset him. Pt. c/o anxiety, RN received order for x1 dose of Ativan 0.5mg, pt. received with good effect. Pt. showered. Pt. given new sheets but did not put them on. RN asked pt. if he needed help putting sheets on and pt. said he did. Pt. napped intermittently during the afternoon. 1:1 done at bedside, pt. denies SI/HI, A/V hallucinations. Pt. observed listening to headphones and pacing. Pt. repeatedly asks for fluids and has to be reminded of his fluid restriction. Plan : Pt. continues to require a safe and supportive environment.
[2023-08-11 19:00] VITALS: RESP 18; O2SAT 94
[2023-08-11 19:33] VITALS: BP 88/57; PULSE 81; RESP 14; TEMP 97.7; O2SAT 94
[2023-08-11 20:05] VITALS: BP 90/62; PULSE 78
--- NOTE | 2023-08-12 03:37 | NUR ---
Nursing Progress Note: Problem : Pt admitted to [facility] for Behavioral health today on 5150 for gravely disabled from our ER. Pt was evicted from his board and care. Pt has severe thought disorder that impacts his ability to make a plan to meet his needs. Pt has history of cerebral palsy, asthma, COPD , schizophrenia. Interventions : Maintained a safe and supportive, provided a safe and supportive environment, ensured contract for safety, provided clear and simple instructions, attempted to orient to reality, provided education on handwashing r/t positive MRSA nasal swab, monitored vital signs. Maintained 1500 daily fluid restriction and maintained Q 15min safety checks. Response : Pt. received sleeping in his room, breathing even and unlabored on room air. He continues on 1500ml daily fluid restriction. He consumed 480ml this shift. Propranolol was held due to low SBP 90/62. He took all his other medications with no issues. He consumed snack and resumed sleeping. Plan : Pt. continues to require a safe and supportive environment.
[2023-08-12] MEDS: NICOTINE POLACRILEX 2 MG LOZENGE BC PRN ×7 (05:51→18:58)
[2023-08-12 07:00] VITALS: RESP 16; O2SAT 96
[2023-08-12] MEDS: Tiotropium Br/Olodaterol HCl (Stiolto Respimat Inhal Spray) IH SCH (07:43)
[2023-08-12] MEDS: polyethylene glycol 3350 17gm powd pack PO SCH (07:54)
[2023-08-12] MEDS: clozapine 100mg tablet PO SCH ×2 (07:54→20:28)
[2023-08-12] MEDS: calcium carbonate 500mg tablet PO SCH ×3 (07:55→20:29)
[2023-08-12] MEDS: chlorhexidine gluconate 15ml Cup****oral rinse MM SCH ×2 (07:55→20:28)
[2023-08-12] MEDS: pantoprazole 40mg Tablet.DR PO SCH (07:55)
[2023-08-12] MEDS: LORazepam 1 MG tablet PO SCH ×3 (07:55→18:58)
[2023-08-12] MEDS: clozapine 25mg tablet PO SCH ×2 (07:55→20:28)
[2023-08-12] MEDS: propranolol 10mg tablet PO SCH ×3 (07:55→20:29)
[2023-08-12] MEDS: docusate sod 100mg capsule PO SCH ×2 (07:55→20:29)
[2023-08-12] MEDS: benztropine 1mg tablet PO SCH ×2 (07:56→20:29)
[2023-08-12] MEDS: haloperidol 5mg tablet PO SCH ×3 (07:56→20:29)
[2023-08-12] MEDS: cholecalciferol (vitamin D3) 1,000 unit (25mcg) tablet PO SCH (07:56)
[2023-08-12 08:37] VITALS: BP 122/72; PULSE 92; RESP 16; TEMP 97.7; O2SAT 99
[2023-08-12 13:11] LABS: ALBUMIN 3.9 G/DL (3.4-5.0); ANION GAP 6 (8-16); BLOOD UREA NITROGEN 12 MG/DL (7-18); BUN/CREATININE RATIO 14.1 (10.0-20.0); CALCIUM 8.1 MG/DL (8.5-10.1); CHLORIDE 90 MMOL/L (99-107); CREATININE 0.85 MG/DL (0.60-1.10); GLUCOSE 66 MG/DL (70-104); POTASSIUM 3.4 MMOL/L (3.5-5.1); SODIUM 124 MMOL/L (135-145); TOTAL CARBON DIOXIDE 27.9 MMOL/L (24-32); eCRCL 109 ML/MIN; eGFR > 90 ML/MIN
--- NOTE | 2023-08-12 15:27 | NUR ---
Nursing Progress Note: Greg Problem: Pt admitted to [facility] for Behavioral health today on 5150 for gravely disabled from our ER. Pt was evicted from his board and care. Pt has severe thought disorder that impacts his ability to make a plan to meet his needs. Pt has history of cerebral palsy, asthma, COPD, schizophrenia. Interventions: Maintained a safe and supportive, provided a safe and supportive environment, ensured contract for safety, provided clear and simple instructions, attempted to orient to reality, and provided education on handwashing r/t positive MRSA nasal swab, monitored vital signs. Maintained 1500 daily fluid restriction and maintained Q 15min safety checks. Response: Received report from AM shift. Pt pleasant and cooperative. Pt compliant with medication with no issues noted. Pt participated in snacks in community room. Pt pacing hallway with earphones on throughout the shift. Pt continue to be on 1500cc daily fluid restriction. Pt reported he likes the taste of water. Pt reported a few cups of water this shift. Pt has been non-compliant with fluids this shift. Pt has been drinking water from the sink this AM shift. Pt denies SI, HI, AH and VH at this time. Pt guarded and did not want to elaborate when asked about AH. PRN nicotine lozenges administered [id number]. Pt need to be reminded to wash hands often. Plan: Pt. continues to require a safe and supportive environment.
--- NOTE | 2023-08-12 18:48 | NUR ---
Pt Serum sodium 124 and K 3.4. Provider Dwayne notified. He ordered Sodium chloride tablets 1 gram PO BID and daily serum sodium labs x 5 days. He ordered to reevaluate daily trends and report to Dr. Alvina Scott for effectiveness. Provider ordered to monitor potassium. Order read back.
[2023-08-12 19:00] VITALS: RESP 16; O2SAT 94
[2023-08-12] MEDS: sodium chloride 1gm tablet PO SCH (20:29)
[2023-08-12 20:37] VITALS: BP 115/85; PULSE 94; RESP 16; TEMP 98.4; O2SAT 94
--- NOTE | 2023-08-13 03:07 | NUR ---
Nursing Progress Note: Greg Problem: Pt admitted to [facility] for Behavioral health today on 5150 for gravely disabled from our ER. Pt was evicted from his board and care. Pt has severe thought disorder that impacts his ability to make a plan to meet his needs. Pt has history of cerebral palsy, asthma, COPD, schizophrenia. Interventions: Maintained a safe and supportive, provided a safe and supportive environment, ensured contract for safety, provided clear and simple instructions, attempted to orient to reality, and provided education on handwashing r/t positive MRSA nasal swab, monitored vital signs. Maintained 1500 daily fluid restriction and maintained Q 15min safety checks. Response: Pt. received pacing the unit halls and spending time in room. He was alert and engaging with typewriter repairer. He continues on 1500ml daily fluid restriction. He consumed 520ml this shift. He was educated on 1500ml fluid restriction due to his low sodium levels. He was understanding of the education. Labs were drawn today and pt Serum sodium 124 and K 3.4. Provider Dwayne notified. He ordered Sodium chloride tablets 1 gram PO BID and daily serum sodium labs x 5 days. He ordered to reevaluate daily trends and report to Dr. Alvina Scott for effectiveness. Provider ordered to monitor potassium. Order read back. Patient was explained the new orders and had no questions. He took all his other medications with no issues. He consumed snack. Patient has no change in LOC, no nausea, and no irritability noted related to low sodium. Patient was reminded to wash hands in hallway bathroom or come to nurses to receive hand service order clerk. Plan: Pt. continues to require a safe and supportive environment. Addendum: 08/13/23 at 0309 by Varinder Almeida LVN, LVN He verbalized understanding with MRSA handwashing education.
[2023-08-13] MEDS: NICOTINE POLACRILEX 2 MG LOZENGE BC PRN ×5 (05:34→19:38)
[2023-08-13 07:30] VITALS: RESP 16; O2SAT 97
[2023-08-13] MEDS: calcium carbonate 500mg tablet PO SCH ×3 (07:41→20:17)
[2023-08-13] MEDS: sodium chloride 1gm tablet PO SCH ×2 (07:41→20:17)
[2023-08-13] MEDS: cholecalciferol (vitamin D3) 1,000 unit (25mcg) tablet PO SCH (07:41)
[2023-08-13] MEDS: benztropine 1mg tablet PO SCH ×2 (07:41→20:16)
[2023-08-13] MEDS: docusate sod 100mg capsule PO SCH ×2 (07:41→20:15)
[2023-08-13] MEDS: polyethylene glycol 3350 17gm powd pack PO SCH (07:42)
[2023-08-13] MEDS: LORazepam 1 MG tablet PO SCH ×3 (07:42→17:10)
[2023-08-13] MEDS: clozapine 100mg tablet PO SCH ×2 (07:42→20:13)
[2023-08-13] MEDS: haloperidol 5mg tablet PO SCH ×3 (07:42→20:18)
[2023-08-13] MEDS: clozapine 25mg tablet PO SCH ×2 (07:42→20:14)
[2023-08-13] MEDS: pantoprazole 40mg Tablet.DR PO SCH (07:42)
[2023-08-13] MEDS: chlorhexidine gluconate 15ml Cup****oral rinse MM SCH ×2 (07:52→20:13)
[2023-08-13] MEDS: propranolol 10mg tablet PO SCH ×3 (07:52→20:17)
[2023-08-13 07:57] VITALS: BP 98/61; PULSE 114; RESP 16; TEMP 98.6; O2SAT 97
[2023-08-13] MEDS: Tiotropium Br/Olodaterol HCl (Stiolto Respimat Inhal Spray) IH SCH (08:00)
[2023-08-13 12:11] VITALS: PULSE 93; RESP 18
--- NOTE | 2023-08-13 17:31 | NUR ---
Nursing Progress Note: Problem : Pt admitted to [facility] for [facility] health today on 5150 for gravely disabled from our ER. Pt was evicted from his board and care. Pt has severe thought disorder that impacts his ability to make a plan to meet his needs. Pt has history of cerebral palsy, asthma, COPD , schizophrenia. Interventions : Maintained a safe and supportive, provided a safe and supportive environment, ensured contract for safety, provided clear and simple instructions, attempted to orient to reality, provided education on handwashing r/t positive MRSA nasal swab, monitored vital signs. Maintained 1500 daily fluid restriction and maintained Q 15min safety checks. Response : RN received pt. awake and pacing [place] at change of shift. Pt. requesting his AM medications. Pt. received medications and continued to pace. Pt. ate breakfast and observed lying in his bed. Pt. perseverates on getting fluids. RN reminded pt. of fluid restriction. Pt. may have chicken broth, Gatorade, coffee and juice due to their containing electrolytes outside of pt.s fluid restriction per Dr. Scott. Gatorade ordered with pt.s trays. Pt. is social with peers and observed pacing hallway most of the day and listening to headphones. Plan : Pt. continues to require a safe and supportive environment.
[2023-08-13 19:27] VITALS: BP_SYST 86; BP_SYST 88; BP_DIAS 54; BP_DIAS 58; PULSE 90; RESP 16; TEMP 98.5; O2SAT 93
[2023-08-13 19:44] VITALS: RESP 16; O2SAT 93
[2023-08-13 19:56] VITALS: PULSE 88; RESP 16; O2SAT 93
--- NOTE | 2023-08-14 02:27 | NUR ---
Nursing Progress Note: Problem : Pt admitted to [place] [facility] for Behavioral health today on 5150 for gravely disabled from our ER. Pt was evicted from his board and care. Pt has severe thought disorder that impacts his ability to make a plan to meet his needs. Pt has history of cerebral palsy, asthma, COPD , schizophrenia. Interventions : Maintained a safe and supportive, provided a safe and supportive environment, ensured contract for safety, provided clear and simple instructions, attempted to orient to reality, provided education on handwashing r/t positive MRSA nasal swab, monitored vital signs. Maintained 1500 daily fluid restriction and maintained Q 15min safety checks. Response : This nurse resumed care for patient at 1830. Patient was observed in room lying on right side facing window with feet at the head of the bed. Patient denies all symptoms and does not complain of any pain. Patient was asked how his day was, he replied relaxing. Patient did not have bowel movement today , LBM noted was 11/05. Patient last sodium level at 130. Patient was given sodium 1GM with HS med. Patient participated in HS snack, then returned to room for remainder of night. Patient was given one PRN nicotine lozenge during shift. Plan : Pt. continues to require a safe and supportive environment.
[2023-08-14] MEDS: NICOTINE POLACRILEX 2 MG LOZENGE BC PRN ×7 (05:27→22:43)
[2023-08-14] MEDS: calcium carbonate 500mg tablet PO SCH ×3 (07:26→20:05)
[2023-08-14] MEDS: clozapine 100mg tablet PO SCH ×2 (07:26→20:02)
[2023-08-14] MEDS: LORazepam 1 MG tablet PO SCH ×3 (07:26→18:07)
[2023-08-14] MEDS: haloperidol 5mg tablet PO SCH ×3 (07:26→20:05)
[2023-08-14] MEDS: cholecalciferol (vitamin D3) 1,000 unit (25mcg) tablet PO SCH (07:26)
[2023-08-14] MEDS: polyethylene glycol 3350 17gm powd pack PO SCH (07:26)
[2023-08-14] MEDS: docusate sod 100mg capsule PO SCH ×2 (07:27→20:04)
[2023-08-14] MEDS: propranolol 10mg tablet PO SCH ×3 (07:27→20:03)
[2023-08-14] MEDS: sodium chloride 1gm tablet PO SCH ×2 (07:27→20:04)
[2023-08-14] MEDS: clozapine 25mg tablet PO SCH ×2 (07:27→20:01)
[2023-08-14] MEDS: benztropine 1mg tablet PO SCH ×2 (07:27→20:04)
[2023-08-14] MEDS: chlorhexidine gluconate 15ml Cup****oral rinse MM SCH ×2 (07:27→20:05)
[2023-08-14] MEDS: pantoprazole 40mg Tablet.DR PO SCH (07:27)
[2023-08-14 07:30] VITALS: RESP 20; O2SAT 98
[2023-08-14 08:00] VITALS: BP 122/76; PULSE 110; RESP 20; TEMP 98.3; O2SAT 98
[2023-08-14] MEDS: Tiotropium Br/Olodaterol HCl (Stiolto Respimat Inhal Spray) IH SCH (08:00)
[2023-08-14 08:33] VITALS: PULSE 107; RESP 16; O2SAT 98
[2023-08-14] MEDS: magnesium hydroxide 30ml (MOM) UD suspension PO PRN (11:38)
[2023-08-14] MEDS ORDERED: tuberculin, purif. prot. deriv. 5 units/0.1ml ID PRN (11:50)
--- NOTE | 2023-08-14 15:35 | NUR ---
Nursing Progress Note: Greg Problem: Pt admitted to [facility] for Behavioral health today on 5150 for gravely disabled from our ER. Pt was evicted from his board and care. Pt has severe thought disorder that impacts his ability to make a plan to meet his needs. Pt has history of cerebral palsy, asthma, COPD, schizophrenia. Interventions: Maintained a safe and supportive, provided a safe and supportive environment, ensured contract for safety, provided clear and simple instructions, attempted to orient to reality, provided education on handwashing r/t positive MRSA nasal swab, monitored vital signs. Maintained 1500 daily fluid restriction and maintained Q 15min safety checks. Response: Received report from AM shift. Pt pleasant and cooperative. Pt compliant with medication with no issues noted. Pt participated in snacks in community room. Pt pacing hallway with earphones on throughout the shift. Pt continue to be on 1500cc daily fluid restriction. Pt stated he likes the taste of water. Pt compliant with fluids restriction this shift. Pt denies SI, HI, AH and VH at this time. Pt guarded and did not want to elaborate when asked about AH. PRN nicotine lozenges administered this shift. Pt positive for MRSA in the nares. Pt need to be reminded to wash hands often. LBM 08/11/23 MOM administered. Pt has not had a BM, MOM administered with no results. Pt sodium level at 137 today 08/14/23. Plan: Pt. continues to require a safe and supportive environment. Addendum: 08/14/23 at 1747 by Evaristo Geronimo) IRAM BEULAH documentation: I have reviewed and agree with all interventions, assessments performed and documented by Gwen RIOJAS.
--- NOTE | 2023-08-14 17:38 | NUR ---
MOM effective Patient had a Medium BM
[2023-08-14 19:30] VITALS: BP 115/79; PULSE 100; RESP 18; TEMP 98.3; O2SAT 98
[2023-08-14 19:38] VITALS: PULSE 101; RESP 16; O2SAT 97
[2023-08-14 19:44] VITALS: RESP 18; O2SAT 96
[2023-08-14] MEDS ORDERED: LORazepam 1 MG tablet PO ONE (21:35)
[2023-08-15] MEDS: magnesium hydroxide 30ml (MOM) UD suspension PO PRN ×2 (00:34→15:22)
--- NOTE | 2023-08-15 02:56 | NUR ---
Nursing Progress Note: Greg Medina Problem: Pt admitted to [facility] for Behavioral health today on 5150 for gravely disabled from our ER. Pt was evicted from his board and care. Pt has severe thought disorder that impacts his ability to make a plan to meet his needs. Pt has history of cerebral palsy, asthma, COPD, schizophrenia. Interventions: Maintained a safe and supportive, provided a safe and supportive environment, ensured contract for safety, provided clear and simple instructions, attempted to orient to reality, provided education on handwashing r/t positive MRSA nasal swab, monitored vital signs. Maintained 1500 daily fluid restriction and maintained Q 15min safety checks. Response: This nurse resumed care for patient at 1830. [facility]. During 1:1, patient was asked how patient day was. Patient replied no one today. Patient denied all symptoms. Patient stated he looked out of his view today and seen the doctor across the street on the treadmill. Patient also says he is wanting to lose weight and get a six pack. Patient approached nursing station numerous times for different things. From lozenge to Ativan to prune juice. Patient having small bowel movements throughout evening. Patient received MOM earlier today but continues to feel constipated. Patient was ordered an additional 1MG of Ativan per MD order. Patient currently in room lying down. Plan: Pt. continues to require a safe and supportive environment.
[2023-08-15] MEDS: NICOTINE POLACRILEX 2 MG LOZENGE BC PRN ×4 (04:37→19:01)
[2023-08-15 07:00] VITALS: RESP 16; O2SAT 98
[2023-08-15] MEDS: polyethylene glycol 3350 17gm powd pack PO SCH (07:23)
[2023-08-15] MEDS: propranolol 10mg tablet PO SCH ×4 (07:23→21:00)
[2023-08-15] MEDS: clozapine 25mg tablet PO SCH ×3 (07:23→20:39)
[2023-08-15] MEDS: LORazepam 1 MG tablet PO SCH ×3 (07:24→17:47)
[2023-08-15] MEDS: cholecalciferol (vitamin D3) 1,000 unit (25mcg) tablet PO SCH (07:24)
[2023-08-15] MEDS: calcium carbonate 500mg tablet PO SCH ×4 (07:24→21:00)
[2023-08-15] MEDS: sodium chloride 1gm tablet PO SCH ×3 (07:24→20:38)
[2023-08-15] MEDS: benztropine 1mg tablet PO SCH ×3 (07:24→20:39)
[2023-08-15] MEDS: clozapine 100mg tablet PO SCH ×3 (07:24→20:39)
[2023-08-15] MEDS: pantoprazole 40mg Tablet.DR PO SCH (07:25)
[2023-08-15] MEDS: haloperidol 5mg tablet PO SCH ×4 (07:25→21:00)
[2023-08-15] MEDS: docusate sod 100mg capsule PO SCH ×3 (07:25→20:38)
[2023-08-15] MEDS: chlorhexidine gluconate 15ml Cup****oral rinse MM SCH ×2 (07:26→20:38)
[2023-08-15 07:52] VITALS: PULSE 101; RESP 14; O2SAT 97
[2023-08-15] MEDS: Tiotropium Br/Olodaterol HCl (Stiolto Respimat Inhal Spray) IH SCH (07:53)
[2023-08-15 08:29] VITALS: BP 115/80; PULSE 92; RESP 16; TEMP 97.2; O2SAT 98
[2023-08-15] MEDS ORDERED: ALBU6.7H14 INH (16:45)
[2023-08-15] MEDS ORDERED: POLY510P31 PO (16:45)
[2023-08-15] MEDS ORDERED: PANT40TA54 PO (16:45)
[2023-08-15] MEDS ORDERED: DOCU100C40 PO (16:45)
[2023-08-15] MEDS ORDERED: PROP40TA7 PO (16:45)
[2023-08-15] MEDS ORDERED: CALC500T11 PO (16:45)
[2023-08-15] MEDS ORDERED: HALO5TAB PO (16:45)
[2023-08-15] MEDS ORDERED: TIOT4MIS3 INH (16:45)
[2023-08-15] MEDS ORDERED: CHLO473M2 PO (16:45)
[2023-08-15] MEDS ORDERED: SODI1TAB2 PO (16:45)
[2023-08-15] MEDS ORDERED: ATI1T PO (16:45)
[2023-08-15] MEDS ORDERED: ONDA-103 PO (16:45)
[2023-08-15] MEDS ORDERED: BENZ2TAB65 PO (16:45)
[2023-08-15] MEDS ORDERED: NICO-907 BC (16:45)
[2023-08-15] MEDS ORDERED: CHOL100046 PO (16:45)
[2023-08-15] MEDS ORDERED: CLOZ25TA12 PO (16:49)
[2023-08-15] MEDS ORDERED: CLOZ100T13 PO (16:49)
--- NOTE | 2023-08-15 18:05 | NUR ---
Nursing Progress Note: Greg Problem: Pt admitted to [facility] today on 5150 for gravely disabled from our ER. Pt was evicted from his board and care. Pt has severe thought disorder that impacts his ability to make a plan to meet his needs. Pt has history of cerebral palsy, asthma, COPD, schizophrenia. Interventions: Maintained a safe and supportive, provided a safe and supportive environment, ensured contract for safety, provided clear and simple instructions, attempted to orient to reality, provided education on handwashing r/t positive MRSA nasal swab, monitored vital signs. Maintained 1500 daily fluid restriction and maintained Q 15min safety checks. Response: Patient sleeping in bed at change of shift. Patient awakens and wants his medications, which were administered. Patiet goes down to the dining room for breakfast. Patient is on a 1500 ml/24 hours. Patient requesting chicken broth, gatorade, nicotine lozenges, coffee, tea and water. Patient drank 800 ml of water and the rest was to assist with his sodium level of 133 today. Patient is compliant and cooperative on the unit. He has asked for his Ativan several times today, with good affect. Patient appears anxious/nervous. He walks around unit with headset on playing music. Patient was given prn MOM and prune juice. Patient denies all mental health symptoms. Plan: Pt. continues to require a safe and supportive environment.
[2023-08-15 19:00] VITALS: O2SAT 98
[2023-08-15 19:45] VITALS: PULSE 92; RESP 14; O2SAT 96
[2023-08-15 20:00] VITALS: BP 123/80; PULSE 89; RESP 20; TEMP 97.5; O2SAT 97
--- NOTE | 2023-08-15 23:08 | NUR ---
Nursing Progress Note: Greg Problem: Pt admitted to [facility] for Behavioral health today on 5150 for gravely disabled from our ER. Pt was evicted from his board and care. Pt has severe thought disorder that impacts his ability to make a plan to meet his needs. Pt has history of cerebral palsy, asthma, COPD, schizophrenia. Interventions: Maintained a safe and supportive, provided a safe and supportive environment, ensured contract for safety, provided clear and simple instructions, attempted to orient to reality, provided education on handwashing r/t positive MRSA nasal swab, monitored vital signs. Maintained 1500 daily fluid restriction and maintained Q 15min safety checks. Response: Assumed pt care at 1930. Pt observed to be pacing the unit with headphones on. Later the patient was seen in the community room watching TV. Participated in snacks and was observed to be lying in bed asleep by 2029. This RN tried to wake up patient for med pass. The patient moved slightly and opened his eyes but refused to sit up to take meds. At around 2200 the pt woke up to use the restroom and he was able to take all HS medications without issue. Pt has had 1100 output of urine this HS shift. Approximately 500 intake. Plan: Pt. continues to require a safe and supportive environment.
[2023-08-16] MEDS ORDERED: LORazepam 1 MG tablet PO ONE (01:05)
[2023-08-16] MEDS ORDERED: CLOZAPINE 25 MG oral disintegrating tablet PO ONE (01:15)
[2023-08-16] MEDS: NICOTINE POLACRILEX 2 MG LOZENGE BC PRN ×6 (01:25→18:12)
[2023-08-16 07:00] VITALS: RESP 16; O2SAT 98
[2023-08-16] MEDS ORDERED: tuberculin, purif. prot. deriv. 5 units/0.1ml ID ONE (07:40)
[2023-08-16 08:00] VITALS: BP 109/67; PULSE 107; RESP 16; TEMP 97.5; O2SAT 98
[2023-08-16] MEDS: Tiotropium Br/Olodaterol HCl (Stiolto Respimat Inhal Spray) IH SCH (08:00)
[2023-08-16] MEDS: chlorhexidine gluconate 15ml Cup****oral rinse MM SCH ×3 (08:05→21:00)
[2023-08-16] MEDS: LORazepam 1 MG tablet PO SCH ×3 (08:05→17:18)
[2023-08-16] MEDS: clozapine 100mg tablet PO SCH ×2 (08:06→21:01)
[2023-08-16] MEDS: benztropine 1mg tablet PO SCH ×2 (08:07→21:01)
[2023-08-16] MEDS: clozapine 25mg tablet PO SCH ×2 (08:07→21:01)
[2023-08-16] MEDS: docusate sod 100mg capsule PO SCH ×2 (08:08→21:02)
[2023-08-16] MEDS: haloperidol 5mg tablet PO SCH ×3 (08:08→21:02)
[2023-08-16] MEDS: propranolol 10mg tablet PO SCH ×3 (08:09→21:02)
[2023-08-16] MEDS: calcium carbonate 500mg tablet PO SCH ×3 (08:10→21:02)
[2023-08-16] MEDS: pantoprazole 40mg Tablet.DR PO SCH (08:10)
[2023-08-16] MEDS: polyethylene glycol 3350 17gm powd pack PO SCH (08:10)
[2023-08-16] MEDS: cholecalciferol (vitamin D3) 1,000 unit (25mcg) tablet PO SCH (08:10)
[2023-08-16] MEDS: sodium chloride 1gm tablet PO SCH ×2 (08:10→21:02)
[2023-08-16 12:21] VITALS: BP 110/70; PULSE 91
--- NOTE | 2023-08-16 14:08 | NUR ---
Nursing Progress Note: Problem : Pt admitted to [facility] for [facility] health today on 5150 for gravely disabled from our ER. Pt was evicted from his board and care. Pt has severe thought disorder that impacts his ability to make a plan to meet his needs. Pt has history of cerebral palsy, asthma, COPD , schizophrenia. Interventions : Maintained a safe and supportive environment, ensured contract for safety, provided clear and simple instructions, attempted to orient to reality, provided education on handwashing r/t positive MRSA nasal swab, maintained ordered fluid restriction r/t ongoing hyponatremia, and maintained Q 15min safety checks. Response : Received pt. sleeping in bed at the beginning of the shit, he awoke early and was observed to be wandering the unit somewhat aimlessly as is his routine. Pt. is able to make his needs known to staff, but remains withdrawn from others. He did attend the patio with others this shift. Pt's speech continues to be mumbled and he speaks in a tangental and disorganized manner which is difficult to understand. Pt. states, "You guys need a new helicopter, pistons blow-up, trying to go to the [place], beat up by jumpers, carnival ride go round and round." He denies any A/V/MOSLEY and no delusional statements were made. Pt. continues on a fluid restriction r/t a hyponatremia. His sodium level was re-drawn today and remains the same as yesterday. Pt. is somewhat compliant with the fluid restriction, but is also observed to be taking fluids from other's rooms at intervals requiring redirection. Plan : Pt. continues to require a safe and supportive environment.
[2023-08-16] MEDS: magnesium hydroxide 30ml (MOM) UD suspension PO PRN (17:19)
[2023-08-16 19:00] VITALS: RESP 20; O2SAT 95
[2023-08-16 20:00] VITALS: BP 114/72; PULSE 86; RESP 20; TEMP 97.8; O2SAT 95
--- NOTE | 2023-08-17 00:31 | NUR ---
Nursing Progress Note: Problem : Pt admitted to [place] for [facility] health today on 5150 for gravely disabled from our ER. Pt was evicted from his board and care. Pt has severe thought disorder that impacts his ability to make a plan to meet his needs. Pt has history of cerebral palsy, asthma, COPD , schizophrenia. Interventions : Maintained a safe and supportive environment, ensured contract for safety, provided clear and simple instructions, attempted to orient to reality, provided education on handwashing r/t positive MRSA nasal swab, maintained ordered fluid restriction r/t ongoing hyponatremia, and maintained Q 15min safety checks. Response : Received pt. pacing the unit while wearing headphones. Pt. is calm and cooperative. Pt. denies SI/HI/MOSLEY/VH. He reports having a good day and that he watched the traffic from his bedroom window. Pt. was observed asleep in bed by 1930. It took a couple attempts to fully awake pt. to take his night medications. Pt. sat up on the side of the bed and took medications without issue. Pt. did refuse chlorhexidine mouth rinse. Observed and appears sleeping without difficulty. Plan : Pt. continues to require a safe and supportive environment.
[2023-08-17] MEDS: NICOTINE POLACRILEX 2 MG LOZENGE BC PRN ×5 (05:40→22:18)
[2023-08-17 07:00] VITALS: RESP 16; O2SAT 96
[2023-08-17] MEDS: haloperidol 5mg tablet PO SCH ×3 (07:23→19:58)
[2023-08-17] MEDS: benztropine 1mg tablet PO SCH ×2 (07:23→19:58)
[2023-08-17] MEDS: pantoprazole 40mg Tablet.DR PO SCH (07:23)
[2023-08-17] MEDS: docusate sod 100mg capsule PO SCH ×2 (07:23→19:58)
[2023-08-17] MEDS: calcium carbonate 500mg tablet PO SCH ×3 (07:23→19:58)
[2023-08-17] MEDS: LORazepam 1 MG tablet PO SCH ×3 (07:23→18:18)
[2023-08-17] MEDS: sodium chloride 1gm tablet PO SCH ×2 (07:23→19:58)
[2023-08-17] MEDS: clozapine 100mg tablet PO SCH ×2 (07:24→19:58)
[2023-08-17] MEDS: propranolol 10mg tablet PO SCH ×3 (07:24→19:59)
[2023-08-17] MEDS: polyethylene glycol 3350 17gm powd pack PO SCH (07:25)
[2023-08-17] MEDS: clozapine 25mg tablet PO SCH ×2 (07:25→19:58)
[2023-08-17] MEDS: chlorhexidine gluconate 15ml Cup****oral rinse MM SCH ×2 (07:25→19:59)
[2023-08-17] MEDS: cholecalciferol (vitamin D3) 1,000 unit (25mcg) tablet PO SCH (07:25)
[2023-08-17 08:00] VITALS: BP 111/76; PULSE 94; RESP 16; TEMP 97.3; O2SAT 94
[2023-08-17] MEDS: Tiotropium Br/Olodaterol HCl (Stiolto Respimat Inhal Spray) IH SCH (08:00)
[2023-08-17] MEDS: ondansetron 4mg rapidly disintigrating tab PO PRN ×2 (08:32→18:47)
--- NOTE | 2023-08-17 15:49 | NUR ---
Nursing Progress Note: Greg Problem: Pt admitted to [place] for [facility] health on 5150 for GD. Pt was evicted from his board and care. Pt has severe thought disorder that impacts his ability to make a plan to meet his needs. Pt has history of cerebral palsy, asthma, COPD, schizophrenia. Interventions: Maintained a safe and supportive, provided a safe and supportive environment, ensured contract for safety, provided clear and simple instructions, attempted to orient to reality, provided education on handwashing r/t positive MRSA nasal swab, monitored vital signs. Maintained 1500 daily fluid restriction and maintained Q 15min safety checks. Response: Pt. received awake and walking on the unit. Pt. presents with intense eye contact, guarded, and perseverating on water. He denies SI, HI, AH, VH and awaits placement. Educated pt. on the importance adhering to fluid restrictions, pt. receptive. Pt. took his medications without hesitation, c/o constipation and prune juice was given with good results. After breakfast pt. c/o nausea and was given PRN Zofran with good results. He spent most of the morning walking around the unit listening to headphones and socially isolating from cohorts. Pt. presents with poor hygiene and was encouraged to shower. Pt. remains on fluid restrictions, Na level today 133. Plan: Pt. continues to require a safe and supportive environment.
[2023-08-17 18:54] VITALS: RESP 16
[2023-08-17 19:36] VITALS: BP 116/71; PULSE 100; RESP 19; TEMP 97.3; O2SAT 100
[2023-08-17 22:02] VITALS: PULSE 87; RESP 16; O2SAT 96
--- NOTE | 2023-08-18 02:18 | NUR ---
Nursing Progress Note: Problem: Pt admitted to [place] for [facility] health on 5150 for GD. Pt was evicted from his board and care. Pt has severe thought disorder that impacts his ability to make a plan to meet his needs. Pt has history of cerebral palsy, asthma, COPD, schizophrenia. Interventions: Maintained a safe and supportive, provided a safe and supportive environment, ensured contract for safety, provided clear and simple instructions, attempted to orient to reality, provided education on handwashing r/t positive MRSA nasal swab, monitored vital signs. Maintained 1500 daily fluid restriction and maintained Q 15min safety checks. Response: Upon arrival to shift noted patient pacing hallway. When nurse said hello patient, he began to follow RN. Made patient aware that this nurse was going to say hello to rest of cohort. Patient understood boundary set and stopped following nurse into rooms. 1. 5 L daily (800 ml per shift) fluid restriction maintained. Todays sodium level was WNL 135. Improved from yesterdays 133. Presents with intense scowl however is pleasant, calm and cooperative. Noted to have poor hygiene, wearing dirty green hospital scrubs. Able to make needs known. Upon assessment, patient c/o his stomach hurting and bloating. Reports, I think the shrimp had milk in it. Reports that he is lactose intolerant. Educated to stay away from dairy. Reports that hes had a soft BM today. Good bowel sounds and tender to touch. Denies SI, HI, AH, VH and awaits placement. Compliant with HS meds. PRN Zofran with good effect and Nicotine lozenges given. Prune juice given per patient request. Seen pacing in hallway. Remains in common areas however not seen socializing with cohort. Stands near nurses and stares into room frequently. Currently sleeping. Will continue to monitor. Plan: Pt. continues to require a safe and supportive environment.
[2023-08-18] MEDS: NICOTINE POLACRILEX 2 MG LOZENGE BC PRN ×7 (05:00→22:13)
[2023-08-18 07:00] VITALS: RESP 16; O2SAT 93
[2023-08-18] MEDS: chlorhexidine gluconate 15ml Cup****oral rinse MM SCH ×2 (07:16→20:04)
[2023-08-18] MEDS: calcium carbonate 500mg tablet PO SCH ×3 (07:16→20:04)
[2023-08-18] MEDS: polyethylene glycol 3350 17gm powd pack PO SCH (07:16)
[2023-08-18] MEDS: haloperidol 5mg tablet PO SCH ×3 (07:17→20:04)
[2023-08-18] MEDS: clozapine 100mg tablet PO SCH ×2 (07:17→20:04)
[2023-08-18] MEDS: LORazepam 1 MG tablet PO SCH ×3 (07:17→17:22)
[2023-08-18] MEDS: cholecalciferol (vitamin D3) 1,000 unit (25mcg) tablet PO SCH (07:17)
[2023-08-18] MEDS: benztropine 1mg tablet PO SCH ×2 (07:17→20:04)
[2023-08-18] MEDS: docusate sod 100mg capsule PO SCH ×2 (07:17→20:04)
[2023-08-18] MEDS: clozapine 25mg tablet PO SCH ×2 (07:18→20:03)
[2023-08-18] MEDS: propranolol 10mg tablet PO SCH ×3 (07:21→20:04)
[2023-08-18] MEDS: pantoprazole 40mg Tablet.DR PO SCH (07:21)
[2023-08-18] MEDS: sodium chloride 1gm tablet PO SCH ×2 (07:21→20:03)
[2023-08-18 08:00] VITALS: BP 106/71; PULSE 92; RESP 16; TEMP 97.8; O2SAT 93
[2023-08-18] MEDS: Tiotropium Br/Olodaterol HCl (Stiolto Respimat Inhal Spray) IH SCH (08:00)
--- NOTE | 2023-08-18 11:50 | NUR ---
F/u 08/18: Pt continues on a regular dry tray with average PO intake of 79% x 13 meals this follow up which met 100% of estimated nutrient needs and 100% of protein needs. LBM on 08/17 receiving routine bowel care and PRN bowel care. Will continue to monitor. Recommendations: 1. Continue regular diet with a dry tray; no dairy per allergy 2. Continue routine Ca/vitamin D3 supplementation per MD 3. Routine and PRN bowel care 4. Weekly scaled weights Addendum: 08/18/23 at [address] Amended: Links added.
[2023-08-18 12:45] VITALS: BP 102/71; PULSE 100
--- NOTE | 2023-08-18 16:46 | NUR ---
Nursing Progress Note: Problem: Pt admitted to [place] for Behavioral health on 5150 for GD. Pt was evicted from his board and care. Pt has severe thought disorder that impacts his ability to make a plan to meet his needs. Pt has history of cerebral palsy, asthma, COPD, schizophrenia. Interventions: Maintained a safe and supportive, provided a safe and supportive environment, ensured contract for safety, provided clear and simple instructions, attempted to orient to reality, provided education on handwashing r/t positive MRSA nasal swab, monitored vital signs. Maintained 1500 daily fluid restriction and maintained Q 15min safety checks. Response: Received pt awake in hallway. Pt observed standing & watching staff working. Pt took morning medications cooperatively. Performed 1:1 bedside. Pt denies SI/HI, but endorses AVH. Pt states he hears friends that talk to him about doing meth. Pt also pointed at his window and states thats a TV, we are in a different realm. Pt remains on a fluid restriction, educated pt again on importance after observing him ask other pts for their coffee. Pt Na 137 today. Pt ate breakfast in the community room and returned to room to nap afterwards. 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 Pt observed pacing the hallways listening to headphones. PPD read today: negative. Pt appearance was unkempt and malodorous. Encouraged pt to shower and he did so. Pt ate lunch and dinner in the community room. Pt requested prune juice, given. Plan: Pt. continues to require a safe and supportive environment.
[2023-08-18 19:11] VITALS: BP 123/74; PULSE 102; RESP 16; TEMP 98; O2SAT 97
[2023-08-18] MEDS: magnesium hydroxide 30ml (MOM) UD suspension PO PRN (20:04)
[2023-08-18 20:33] VITALS: PULSE 102; RESP 16; O2SAT 97
--- NOTE | 2023-08-19 02:18 | NUR ---
Nursing Progress Note: Problem: Pt admitted to [place] for [facility] health on 5150 for GD. Pt was evicted from his board and care. Pt has severe thought disorder that impacts his ability to make a plan to meet his needs. Pt has history of cerebral palsy, asthma, COPD, schizophrenia. Interventions: Maintained a safe and supportive, provided a safe and supportive environment, ensured contract for safety, provided clear and simple instructions, attempted to orient to reality, provided education on handwashing r/t positive MRSA nasal swab, monitored vital signs. Maintained 1500 daily fluid restriction and maintained Q 15min safety checks. Response: Upon arrival to shift noted patient sitting on bed with headphones looking at a magazine. Unkempt in appearance wearing dirty street clothes. Denies MH s/sx. Presents with intense stare at baseline however patient is calm and cooperative. Disorganized thoughts and dysarthric speech noted. States, Fecal matter is like brain waves. Like going to the bathroom like when birds feed. Noted patient pacing in hallway. Keeps to himself while in common areas. Able to make needs known. Requesting Tylenol and M.O.M this shift. Ask for oral fluids frequently. Reminders given to patient re: fluid restriction. Added salt tablet 1,000 gm BID remains. Yesterdays NA+ was 137 WNL. VSS. Compliant with HS meds. PRN M.O.M, Tylenol and Nicotine lozenges given. Currently sleeping. Will continue to monitor. Plan: Pt. continues to require a safe and supportive environment. Per Dr. Guillermo's note, "Mr. Medina is slated for a [facility] facility next week."
[2023-08-19 07:00] VITALS: RESP 16; O2SAT 98
[2023-08-19] MEDS: NICOTINE POLACRILEX 2 MG LOZENGE BC PRN ×4 (07:09→20:09)
[2023-08-19] MEDS: polyethylene glycol 3350 17gm powd pack PO SCH (07:50)
[2023-08-19] MEDS: haloperidol 5mg tablet PO SCH ×3 (07:51→20:09)
[2023-08-19] MEDS: benztropine 1mg tablet PO SCH ×2 (07:51→20:08)
[2023-08-19] MEDS: pantoprazole 40mg Tablet.DR PO SCH (07:51)
[2023-08-19] MEDS: calcium carbonate 500mg tablet PO SCH ×3 (07:51→20:09)
[2023-08-19] MEDS: docusate sod 100mg capsule PO SCH ×2 (07:51→20:08)
[2023-08-19] MEDS: LORazepam 1 MG tablet PO SCH ×3 (07:51→17:36)
[2023-08-19] MEDS: cholecalciferol (vitamin D3) 1,000 unit (25mcg) tablet PO SCH (07:51)
[2023-08-19] MEDS: sodium chloride 1gm tablet PO SCH ×2 (07:51→20:09)
[2023-08-19] MEDS: chlorhexidine gluconate 15ml Cup****oral rinse MM SCH ×2 (07:52→20:09)
[2023-08-19] MEDS: clozapine 100mg tablet PO SCH ×2 (07:52→20:08)
[2023-08-19] MEDS: propranolol 10mg tablet PO SCH ×3 (07:52→20:07)
[2023-08-19] MEDS: clozapine 25mg tablet PO SCH ×2 (07:52→20:08)
[2023-08-19] MEDS: Tiotropium Br/Olodaterol HCl (Stiolto Respimat Inhal Spray) IH SCH (07:53)
[2023-08-19 08:30] VITALS: BP 105/76; PULSE 105; RESP 16; TEMP 97.5; O2SAT 98
[2023-08-19 13:13] VITALS: BP 95/64; PULSE 94; RESP 16
--- NOTE | 2023-08-19 16:29 | NUR ---
Nursing Progress Note: Problem: Pt admitted to [place] for [facility] health on 5150 for GD. Pt was evicted from his board and care. Pt has severe thought disorder that impacts his ability to make a plan to meet his needs. Pt has history of cerebral palsy, asthma, COPD, schizophrenia. Interventions: Maintained a safe and supportive, provided a safe and supportive environment, ensured contract for safety, provided clear and simple instructions, attempted to orient to reality, provided education on handwashing r/t positive MRSA nasal swab, monitored vital signs. Maintained 1500 daily fluid restriction and maintained Q 15min safety checks. Response: Nurse received pt. awake at change of shift, pacing the halls requesting a nicotine lozenge. 1:1 done at bedside and medications administered with no issues. During 1:1 pt. stated. I was in foster care, then went to [facility] through [facility] space and landed in [facility] on a [place]. Pt continues to have disorganized thought processing and is difficult to follow in conversation. Pt. mumbles and is hard to hear. Presents with intense stare at baseline. NA+ 137 on 08/18. Pt continues to ask for coffee frequently and has to be reminded he is on a fluid restriction. Pt denies all MH symptoms. Plan: Pt. continues to require a safe and supportive environment. Pt discharging to [facility] this week.
[2023-08-19 19:00] VITALS: RESP 16; O2SAT 97
[2023-08-19 19:16] VITALS: BP 125/81; PULSE 112; RESP 16; TEMP 97.6; O2SAT 97
[2023-08-19 19:42] VITALS: PULSE 105; RESP 18; O2SAT 96
[2023-08-19] MEDS: magnesium hydroxide 30ml (MOM) UD suspension PO PRN (21:59)
--- NOTE | 2023-08-20 02:35 | NUR ---
Nursing Progress Note: Problem: Pt admitted to [place] for [facility] health on 5150 for GD. Pt was evicted from his board and care. Pt has severe thought disorder that impacts his ability to make a plan to meet his needs. Pt has history of cerebral palsy, asthma, COPD, schizophrenia. Interventions: Maintained a safe and supportive, provided a safe and supportive environment, ensured contract for safety, provided clear and simple instructions, attempted to orient to reality, provided education on handwashing r/t positive MRSA nasal swab, monitored vital signs. Maintained 1500 daily fluid restriction and maintained Q 15min safety checks. Response: Pt up pacing in halls first part of shift. Requested Nicotine lozenges q2h. Given chicken broth at snack due to low Na+ although NA+ 137 on 08/18. Pt denies all MH symptoms. Did not make any delusional statements. About 5 minutes after taking PM meds in group room during snack pt choked on hot chocolate ran to trash and appeared to vomit. No pills seen in trash and did not appear enough emesis to indicate pt have emptied contents of stomach so no replacement medications given. Pt is calm pleasant and cooperative. Plan: Pt. continues to require a safe and supportive environment. Pt discharging to [facility] this week.
[2023-08-20] MEDS: NICOTINE POLACRILEX 2 MG LOZENGE BC PRN ×6 (06:14→20:48)
[2023-08-20] MEDS: calcium carbonate 500mg tablet PO SCH ×3 (07:19→20:39)
[2023-08-20] MEDS: LORazepam 1 MG tablet PO SCH ×3 (07:19→17:06)
[2023-08-20] MEDS: benztropine 1mg tablet PO SCH ×2 (07:19→20:39)
[2023-08-20] MEDS: haloperidol 5mg tablet PO SCH ×3 (07:19→20:40)
[2023-08-20] MEDS: docusate sod 100mg capsule PO SCH ×2 (07:19→20:39)
[2023-08-20] MEDS: clozapine 100mg tablet PO SCH ×2 (07:19→20:40)
[2023-08-20] MEDS: propranolol 10mg tablet PO SCH ×3 (07:19→20:40)
[2023-08-20] MEDS: cholecalciferol (vitamin D3) 1,000 unit (25mcg) tablet PO SCH (07:19)
[2023-08-20] MEDS: sodium chloride 1gm tablet PO SCH ×2 (07:19→20:39)
[2023-08-20] MEDS: clozapine 25mg tablet PO SCH ×2 (07:19→20:40)
[2023-08-20] MEDS: pantoprazole 40mg Tablet.DR PO SCH (07:20)
[2023-08-20] MEDS: polyethylene glycol 3350 17gm powd pack PO SCH (07:22)
[2023-08-20 07:30] VITALS: BP 117/82; PULSE 106; RESP 16; TEMP 97.4; O2SAT 97
[2023-08-20] MEDS: Tiotropium Br/Olodaterol HCl (Stiolto Respimat Inhal Spray) IH SCH ×2 (07:43→07:47)
[2023-08-20 07:47] VITALS: PULSE 110; RESP 17; O2SAT 97
[2023-08-20] MEDS: chlorhexidine gluconate 15ml Cup****oral rinse MM SCH ×2 (08:33→20:38)
--- NOTE | 2023-08-20 17:42 | NUR ---
Nursing Progress Note: Problem: Pt admitted to [place] for [facility] health on 5150 for GD. Pt was evicted from his board and care. Pt has severe thought disorder that impacts his ability to make a plan to meet his needs. Pt has history of cerebral palsy, asthma, COPD, schizophrenia. Interventions: Maintained a safe and supportive, provided a safe and supportive environment, ensured contract for safety, provided clear and simple instructions, attempted to orient to reality, provided education on handwashing r/t positive MRSA nasal swab, monitored vital signs. Maintained 1500 daily fluid restriction and maintained Q 15min safety checks. Response: RN received pt. awake and pacing hallway and change of shift. Pt. standing at nurses station door staring at staff, pt. is difficult to redirect. 1:1 done at bedside, pt. mumbles Im doing good and then became tangential about delusions of feeling the building was moving because someone was releasing energy. Pt. denies all psych symptoms. Pt. paces the hallway and asks for nicotine lozenges every 2 hours. Pt. socializes minimally with peers and staff. COVID test done and was negative. Plan: Pt. continues to require a safe and supportive environment. Pt discharging to [facility] this week.
[2023-08-20 19:36] VITALS: PULSE 100; RESP 18; O2SAT 96
[2023-08-20 20:00] VITALS: BP 108/83; PULSE 100; RESP 18; TEMP 97.6; O2SAT 98
[2023-08-20] MEDS ORDERED: traZODone 50mg tablet PO ONE (21:35)
--- NOTE | 2023-08-21 00:01 | NUR ---
Nursing Progress Note: Greg Problem: Pt admitted to [place] for [facility] health on 5150 for GD. Pt was evicted from his board and care. Pt has severe thought disorder that impacts his ability to make a plan to meet his needs. Pt has history of cerebral palsy, asthma, COPD, schizophrenia. Interventions: Maintained a safe and supportive, provided a safe and supportive environment, ensured contract for safety, provided clear and simple instructions, attempted to orient to reality, provided education on handwashing r/t positive MRSA nasal swab, monitored vital signs. Maintained 1500 daily fluid restriction and maintained Q 15min safety checks. Response: RN received pt pacing the hallway with headphones. Pt states he is going to [place] and is excited about it. He states he knows people there. Pt stands at nurses station door and just stares. He is up for snacks and takes all medication without issue. He requested something to help him sleep. Plan: Pt. continues to require a safe and supportive environment. Pt discharging to [facility] this week.
[2023-08-21] MEDS: NICOTINE POLACRILEX 2 MG LOZENGE BC PRN ×2 (05:08→08:36)
[2023-08-21 07:00] VITALS: RESP 12; O2SAT 99
[2023-08-21 08:00] VITALS: BP 127/89; PULSE 108; RESP 12; TEMP 98.3; O2SAT 99
[2023-08-21] MEDS: Tiotropium Br/Olodaterol HCl (Stiolto Respimat Inhal Spray) IH SCH (08:00)
[2023-08-21] MEDS: chlorhexidine gluconate 15ml Cup****oral rinse MM SCH (08:00)
[2023-08-21] MEDS: calcium carbonate 500mg tablet PO SCH (08:01)
[2023-08-21] MEDS: docusate sod 100mg capsule PO SCH (08:01)
[2023-08-21] MEDS: LORazepam 1 MG tablet PO SCH (08:01)
[2023-08-21] MEDS: benztropine 1mg tablet PO SCH (08:02)
[2023-08-21] MEDS: pantoprazole 40mg Tablet.DR PO SCH (08:02)
[2023-08-21] MEDS: haloperidol 5mg tablet PO SCH (08:02)
[2023-08-21] MEDS: sodium chloride 1gm tablet PO SCH (08:02)
[2023-08-21] MEDS: propranolol 10mg tablet PO SCH (08:03)
[2023-08-21] MEDS: polyethylene glycol 3350 17gm powd pack PO SCH (08:04)
[2023-08-21] MEDS: clozapine 100mg tablet PO SCH (08:04)
[2023-08-21] MEDS: clozapine 25mg tablet PO SCH (08:04)
[2023-08-21] MEDS: cholecalciferol (vitamin D3) 1,000 unit (25mcg) tablet PO SCH (08:04)
--- NOTE | 2023-08-21 13:43 | NUR ---
Nursing Discharge Note Pt discharged from [facility] at 1250. Pt brought down to the lobby to meet [facility] Sales [facility] Service Representative to take Pt to [facility]. Pt in good mood and excited about new placement. Pt denies si/hi and MH SX's. Pt in no acute physical or emotional distress and has been improving since admission. Pt's belongings and valuables were inventoried and returned to him and Pt provided nicotine replacement to be taken at new facility.
== END 2023-08-21 12:50 | disposition home or self-care (01) | DRG 750 ==
LOC: ER 13:51 → ED HOLD 07-18 10:55 → ADULT MH 07-18 12:23
PROVIDERS: ADMIT Psychiatry & Neurology Psychiatry; ATTEND Psychiatry & Neurology Psychiatry
DX: F20.9 Schizophrenia, unspecified (principal); E87.1 Hypo-osmolality and hyponatremia; E55.9 Vitamin D deficiency, unspecified; G80.9 Cerebral palsy, unspecified; F17.200 Nicotine dependence, unspecified, uncomplicated; I10 Essential (primary) hypertension; Z20.822 Contact with and (suspected) exposure to COVID-19; J44.9 Chronic obstructive pulmonary disease, unspecified; K59.03 Drug induced constipation; Z79.899 Other long term (current) drug therapy; K21.9 Gastro-esophageal reflux disease without esophagitis; Z73.6 Limitation of activities due to disability; R63.1 Polydipsia
CPT/HCPCS: 36415; 80048; 80053; 80061; 80305; 80320; 81003; 83036; 84295; 84443; 85025; 87081; 87811; 94640; 94760; 99285; A6250; J3490; J7030; J7070